=== PATIENT | female | born 1940 | race Caucasian/White ===

== ENCOUNTER 2023-11-23 04:16 | Inpatient (IN) ==
--- NOTE | 2023-11-23 04:44 | Emergency Department Note ---
Impression & Plan Dyspnea on exertion, Hypertension, Exercise hypoxemia, Paresthesia of arm, Acute UTI (urinary tract infection) ED Provider Note Name: ZAINAB CHAUDHARY Age: 83 Sex: Female Arrives Via: Walk-In Informant: Patient and patient's sons ED Provider: Harrison Espinal MD Chief Complaint: Hypertension Impression: As per impressions above Medical Decision Making: Pleasant 83-year-old female arrives for evaluation of hypertension. Patient notes that her blood pressure has been gradually increasing over the last several days when checking it. This morning she awoke and was having tingling in both of her arms. She denies any other neurodeficits and her NIH is 0 on arrival. Blood pressure is elevated in the 190s on arrival. She was given a small dose of labetalol and it started coming down. Patient did note some urinary frequency the last few days and UA is somewhat concerning for UTI the setting is reasonable to treat. She does not have any evidence of sepsis no fever or systemic symptoms. She does not have any abdominal pain or flank tenderness palpation. On ambulation to bathroom though patient became quite dyspneic. She states this gentleman increasing issue last few weeks. Her sons note that she has no energy and is doing much more sitting around the house due to the exertional shortness of breath she has been having. Checking her oxygen with ambulation it is dropping into the 80s. Reviewing her chart she does have some left ear though only mild to moderate. On exam she has a bit of a systolic murmur. I discussed the case further with them and offered hospitalist evaluation which they would like to proceed with. Hospitalist was consulted for further management evaluation. At this point patient is not significant hypoxic at rest has no tachycardia I think PE dissection is unlikely. She does not have evidence of CHF on examination or by chest x-ray. Triage/Nursing Notes reviewed by Me External Chart Review by me: Reviewed October 2023 echocardiogram results with preserved EF mild to moderate AAS. Differential:Reactive airway disease, pneumonia, pneumothorax, COPD, CHF, infections, cardiac ischemia, pulmonary embolism, musculoskeletal, gastrointestinal, as well as other pathologies. Vital Signs: reviewed and remarkable for HTN Interventions: Labetalol 5 mg IV, Rocephin 1 g IV Labs:ED labs Reviewed by me and remarkable for mildly elevated BNP Imaging:CT of the head without contrast as per my informal interpretation reveals no intracranial hemorrhage or mass effect. 1 view chest x-ray as per my interpretation mild emphysematous findings no infiltrate or effusion appreciated. EKG:As per my interpretation. Indication hypertension. The sinus rhythm with PACs, 88 bpm and a QTc of 438. No ischemia appreciated. No previous EKG for comparison. Cardiac/Tele Monitoring: Cardiac Monitoring: An Order was placed for continuous cardiac monitoring. The monitor shows a rate of 80 with a normal sinus rhythm. Consults:Dr Osiel Booth Hospitalist consulted who further evaluate and manage. Plan: Disposition:Hospitalization. Condition: Good History of Present Illness: 83-year-old female arrives for evaluation of hypertension. Patient with a history of hypertension and recently increasing blood pressures when checking them at home. Does note that oftentimes blood pressure will be normal in the mornings and then creep up in the evenings. States that this evening she awoke around 3 AM and was feeling paresthesias in bilateral arms. Go from elbows to shoulders. Denies any weakness, slurred speech, visual changes, headaches, neck pain or other concerning signs or symptoms. She denies any shortness of breath, chest pain, syncope, palpitations, fevers, chills or other. Denies any falls, trauma, injuries. Patient does not take any blood thinners. She notes she is on losartan 50 mg in the morning and at night. Follows with her mailmaster Dr. Mckeon for this as well as her PCP. Patient does admit that she has been a bit anxious recently. She is also been having some increased urinary frequency the last few days. Past Medical History: Hypertension, anxiety Home Medications: Losartan Allergies: No known drug allergies Vitals:Blood Pressure: 198/113, Pulse 88, RR 16, T 36.5C, O2 92% on RA Physical Exam: GENERAL: Patient is anxious appearing and in mild distress. RESPIRATORY: No dyspnea. Clear to auscultation and equal bilaterally. CARDIOVASCULAR: Regular rate and rhythm.Systolic murmur EXTREMITIES: Normal motion all extremities, no cyanosis, no edema. NEUROLOGIC: Alert and oriented. No focal neurologic deficits appreciated SKIN: No rash, no jaundice, no diaphoresis. PSYCH: Appropriate GCS: 15 ED Course: Times/Reassessments: significant sob and hypoxia with ambulation Harrison Espinal MD Past Med/Surg History Problem List (Updated 11/23/23 @ 06:29 by Harrison Espinal MD) Acute UTI (urinary tract infection) (Acute) Paresthesia of arm (Acute) Exercise hypoxemia (Acute) Hypertension (Acute) Dyspnea on exertion (Acute) Social History (System 07/31/18 @ 13:55 by Kari Rodgers) Smoking Status: Never smoker Preferred Language: Malay Feels Safe at Home: Yes Allergies Allergies Allergy/AdvReac Type Severity Reaction Status Date / Time Sulfa (Sulfonamide Allergy Vomiting Verified 11/23/23 06:04 Antibiotics) Home Meds Home Medications Medication Instructions Recorded Confirmed Aspir-81 81 mg PO DAILY 11/23/23 11/23/23 Calcium 600 + D(3) 1 tab PO DAILY 11/23/23 11/23/23 Vitamin C 1,000 mg PO DAILY 11/23/23 11/23/23 atenolol 25 mg tablet 25 mg PO DAILY 11/23/23 11/23/23 fluticasone propionate 2 spray DAILY 11/23/23 11/23/23 losartan 100 mg tablet 100 mg PO DAILY 11/23/23 11/23/23 sertraline 50 mg tablet 50 mg PO DAILY 11/23/23 11/23/23 zinc 50 mg PO DAILY 11/23/23 11/23/23 Results & Data (ED) Vital Signs Vital Signs - 24 hr 11/23/23 04:25 11/23/23 04:39 11/23/23 04:40 Temperature 36.5 C Temperature Source Temporal Artery Scan Pulse Rate 88 90 Pulse Rate [Apical] 87 Pulse Rhythm [Apical] Regular Pulse Strength [Apical] Normal Respiratory Rate 16 18 Respiratory Effort / Characteristics Non-Labored Spontaneous Respiratory Depth Normal Blood Pressure 198/113 H Blood Pressure [Left Arm] 215/128 H Blood Pressure Mean 141 Blood Pressure Mean [Left Arm] 157 Pulse Oximetry 92 96 Oxygen Delivery Method Room Air Sepsis Recent Fever Within 48 Hours No Sepsis New/Unexplained Change in Mental Status No Sepsis Action Taken by Nursing No Action Required 11/23/23 05:12 11/23/23 05:16 11/23/23 05:34 Temperature Temperature Source Pulse Rate 88 81 Pulse Rate [Apical] Pulse Rhythm [Apical] Pulse Strength [Apical] Respiratory Rate Respiratory Effort / Characteristics Respiratory Depth Blood Pressure 201/112 H 169/96 H Blood Pressure [Left Arm] Blood Pressure Mean Blood Pressure Mean [Left Arm] Pulse Oximetry 88 L Oxygen Delivery Method Room Air Sepsis Recent Fever Within 48 Hours Sepsis New/Unexplained Change in Mental Status Sepsis Action Taken by Nursing Laboratory Data 11/23/23 04:50 11/23/23 04:50 Lab Results 11/23/23 Range/Units 04:50 WBC 7.55 (4.8-10.8) K/ul RBC 4.93 (4.20-5.40) M/uL Hgb 14.9 (12.0-16.0) g/dl Hct 45.9 (37.0-47.0) % MCV 93.1 (80.0-100.0) fL MCH 30.2 (25.0-34.0) pg MCHC 32.5 (32.0-36.0) g/dL RDW Std Deviation 45.5 (36.4-46.3) fL RDW Coeff of Keisha 13.3 (11.5-14.5) % Plt Count 276 (130-400) K/uL MPV 9.2 L (9.4-12.4) fL Immature Gran % (Auto) 0.3 % Neut % (Auto) 74.2 % Lymph % (Auto) 13.8 % [place] % (Auto) 9.5 % Eos % (Auto) 1.7 % Baso % (Auto) 0.5 % Neut # (Auto) 5.60 (1.40-6.50) K/uL Lymph # (Auto) 1.04 L (1.20-3.40) K/uL [place] # (Auto) 0.72 H (0.11-0.59) K/uL Eos # (Auto) 0.13 (0.00-0.50) K/uL Baso # (Auto) 0.04 (0.00-0.20) K/uL Immature Gran # (Auto) 0.02 (0.01-0.20) K/uL Sodium 139 (136-145) mmol/L Potassium 3.6 (3.5-5.1) mmol/L Chloride 104 (98-107) mmol/L Carbon Dioxide 26 (21-32) mmol/L Anion Gap 9 (3-11) BUN 13 (6-23) mg/dl Creatinine 0.74 (0.6-1.2) mg/dl Est Cr Clr Drug Dosing Not Reportable Est GFR ( Amer) 86.2 ml/min Est GFR (Non-Af Amer) 74.4 ml/min BUN/Creatinine Ratio 17.6 (10-20) Glucose 114 H (70-99(Fasting)) mg/dl Calcium 9.9 (8.6-10.3) mg/dl Magnesium 2.0 (1.7-2.4) mg/dl Troponin I High Sens 8.7 (0-14) pg/ml B-Natriuretic Peptide 134 H (0-100) pg/ml Urine Color Yellow Urine Appearance Clear (Clear) Urine pH 8.0 H (4.5-7.5) Ur Specific [place] 1.008 (1.000-1.030) Urine Protein Negative (Negative) Urine Glucose (UA) Negative (Negative) Urine Ketones Negative (Negative) Urine Blood Negative (Negative) Urine Nitrite Negative (Negative) Urine Bilirubin Negative (Negative) Urine Urobilinogen Negative (Negative) Ur Leukocyte Esterase 2+ H (Negative) Urine WBC (Auto) 21-50 H (0-5) /hpf Urine RBC (Auto) 0-2 (0-2) /hpf U Hyaline Cast (Auto) 0-2 (0-2) /lpf U Epithel Cells (Auto) 0-2 (0-2) /hpf Urine Bacteria (Auto) None Seen (None Seen) Administered Medications Discontinued Medications Labetalol HCl (Labetalol Hcl Iv 5 Mg/Ml 20ml) 5 mg IV NOW STA Stop: 11/23/23 04:42 Last Admin: 11/23/23 05:16 Dose: 5 mg Documented By: HB Discharge Plan Visit Data Chief Complaint: Hypertension Stated Complaint: ARMS TINGLING,HIGH BP ED Provider: Harrison Espinal Discharge Problem: Dyspnea on exertion, Hypertension, Exercise hypoxemia, Paresthesia of arm, Acute UTI (urinary tract infection) Forms Stand Alone Forms: My [facility]ll[facility] Prescriptions Prescriptions: No Action Aspir-81 81 mg PO DAILY atenolol 25 mg tablet 25 mg PO DAILY losartan 100 mg tablet 100 mg PO DAILY sertraline 50 mg tablet 50 mg PO DAILY Calcium 600 + D(3) 1 tab PO DAILY Vitamin C 1,000 mg PO DAILY fluticasone propionate 2 spray DAILY Rx Instructions: each nostril zinc 50 mg PO DAILY Referrals Referrals: Stevie Mcclain D.O. [Primary Care Provider] - Discharge Problem: Hypertension Qualifiers: Hypertension type: primary hypertension Qualified Code(s): I10 - Essential (primary) hypertension
[2023-11-23 05:12] LABS: Appearance Urine Clear (Clear); Bacteria Urine Automated None Seen (None Seen); Bilirubin Urine Negative (Negative); Blood Urine Negative (Negative); Cast Urine Automated 0-2 /lpf (0-2); Color Urine Yellow; Epithelial Cell Urine Auto 0-2 /hpf (0-2); Glucose Urine UA Negative (Negative); Ketones Urine Negative (Negative); Leukocyte Esterase Urine 2+ (Negative); Nitrite Urine Negative (Negative); Protein Urine Negative (Negative); RBC Urine Automated 0-2 /hpf (0-2); Specific Gravity Urine 1.008 (1.000-1.030); Urobilinogen Urine Negative (Negative); WBC Urine Automated 21-50 /hpf (0-5)
[2023-11-23] MEDS: LABETALOL HCL IV 5 MG/ML 20ML IV STA ×2 (05:16→06:36)
[2023-11-23 05:17] LABS: Basophils # (auto) 0.04 K/uL (0.00-0.20); Basophils % (auto) 0.5 %; Eosinophils # (auto) 0.13 K/uL (0.00-0.50); Eosinophils % (auto) 1.7 %; Hematocrit (blood only) 45.9 % (37.0-47.0); Hemoglobin 14.9 g/dl (12.0-16.0); Immature Granulocytes # (auto) 0.02 K/uL (0.01-0.20); Immature Granulocytes % (auto) 0.3 %; Lymphocytes # (auto) 1.04 K/uL (1.20-3.40); Lymphocytes % (auto) 13.8 %; Mean Corpuscular Hemoglobin 30.2 pg (25.0-34.0); Mean Corpuscular Hgb Conc 32.5 g/dL (32.0-36.0); Mean Corpuscular Volume 93.1 fL (80.0-100.0); Mean Platelet Volume 9.2 fL (9.4-12.4); Monocytes # (auto) 0.72 K/uL (0.11-0.59); Monocytes % (auto) 9.5 %; Neutrophils % (auto) 74.2 %; Platelet Count 276 K/uL (130-400); RDW Coefficient of Variation 13.3 % (11.5-14.5); RDW Standard Deviation 45.5 fL (36.4-46.3); Red Blood Count 4.93 M/uL (4.20-5.40); White Blood Count 7.55 K/ul (4.8-10.8)
[2023-11-23 05:27] LABS: Anion Gap 9 (3-11); BUN Creatinine Ratio 17.6 (10-20); Blood Urea Nitrogen 13 mg/dl (6-23); Calcium 9.9 mg/dl (8.6-10.3); Carbon Dioxide 26 mmol/L (21-32); Chloride 104 mmol/L (98-107); Est GFR (African American) 86.2 ml/min; Est GFR (Non-African American) 74.4 ml/min; Glucose 114 mg/dl (70-99(Fasting)); Potassium 3.6 mmol/L (3.5-5.1); Sodium 139 mmol/L (136-145)
[2023-11-23 05:34] LABS: Troponin I High Sensitivity 8.7 pg/ml (0-14)
[2023-11-23] MEDS: cefTRIAXone SODIUM 1,000 MG/50 ML BAG IV STA (06:21)
--- NOTE | 2023-11-23 06:44 | History & Physical Report ---
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 It may contain grammatical or spelling errors. Kindly contact undersigned for clarification of any documentation item in question. History of Present Illness Chief Complaint: High blood pressure, SOB, tingling sensation over the arms Primary Care Provider: Stevie Mccalin History obtained from patient, family, and records. Medical history significant for hypertension, valvular heart disease (mild to moderate , mild AR/MR, TTE 2023), R breast cancer status post surgery and letrozole Rx, colon cancer status post surgery, anxiety. Patient has had uncontrolled blood pressure the last 2 months. SBP 1 20-1 90s as per patient. Compliant with home meds. Denies OTC NSAID intake. Denies unusual stress at home. No sleep apnea concerns as per family. Denies headache, chest pain, abdominal pain complaints. Some SOB usually on exertion. No fluid retention. PCP recently started sertraline for anxiety which was thought to be adding to patient's blood pressure issues. Outpatient 2D echo requested and done last month at [facility]. Outpatient [facility] cardiology referral scheduled February 2024. Patient recently completed antibiotic Rx for sinus infection. Patient woke up this morning with tingling discomfort both arms. No headache, no chest pain. Worsening SOB. Increased urinary frequency without abdominal pain complaints. No fever, no chills. Highest SBP of 210 documented at the ER. O2 sats of 80s documented at the ER. IV labetalol administered at the ER. 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 Allergies Allergy/AdvReac Type Severity Reaction Status Date / Time Sulfa (Sulfonamide Allergy Vomiting Verified 11/23/23 06:04 Antibiotics) Home Medications Medication Instructions Recorded Confirmed Type Aspir-81 81 mg PO DAILY 11/23/23 11/23/23 History Calcium 600 + D(3) 1 tab PO DAILY 11/23/23 11/23/23 History Vitamin C 1,000 mg PO DAILY 11/23/23 11/23/23 History atenolol 25 mg tablet 25 mg PO DAILY 11/23/23 11/23/23 History fluticasone propionate 2 spray DAILY 11/23/23 11/23/23 History losartan 100 mg tablet 50 mg PO BID 11/23/23 11/23/23 History sertraline 50 mg tablet 50 mg PO DAILY 11/23/23 11/23/23 History zinc 50 mg PO DAILY 11/23/23 11/23/23 History Past Med/Surg History Problem List (Updated 11/23/23 @ 08:11 by Santo Cartagena MD) Acute hypoxemic respiratory failure Acute UTI (urinary tract infection) (Acute) Paresthesia of arm (Acute) Exercise hypoxemia (Acute) Hypertension (Acute) Dyspnea on exertion (Acute) Social History (System 07/31/18 @ 13:55 by Kari Rodgers) Smoking Status: Never smoker Preferred Language: Com[place]an Feels Safe at Home: Yes Review of Systems Review of Systems: As per HPI, all other systems reviewed and negative Physical Exam Physical Exam: GENERAL: Comfortable, pleasant, slightly anxious, no respiratory distress SKIN: Normal color, warm HEENT: [place] palpebral conjunctivae, no ptosis, moist buccal mucosa NECK : Supple, no tenderness CHEST : CTA, no tenderness HEART : RRR, systolic murmur ABDOMEN: Some distention, nontender EXTREMITIES : No LE swelling, prominent LE varicose veins, no LE tenderness NEUROLOGIC : Coherent, no facial asymmetry, no other gross focality Results & Data Results & Data Vital Signs (Past 12 Hours) Vital Signs Temp Pulse Pulse Resp BP BP Pulse Ox 11/23/23 05:34 81 169/96 H 11/23/23 05:16 88 201/112 H 11/23/23 05:12 88 L 11/23/23 04:40 87 18 215/128 H 96 11/23/23 04:39 90 11/23/23 04:25 36.5 C 88 16 198/113 H 92 O2 Del Method 11/23/23 05:34 11/23/23 05:16 11/23/23 05:12 Room Air 11/23/23 04:40 Room Air 11/23/23 04:39 11/23/23 04:25 Laboratory Results Laboratory Results WBC 7.55 K/ul (4.8-10.8) 11/23/23 04:50 RBC 4.93 M/uL (4.20-5.40) 11/23/23 04:50 Hgb 14.9 g/dl (12.0-16.0) 11/23/23 04:50 Hct 45.9 % (37.0-47.0) 11/23/23 04:50 MCV 93.1 fL (80.0-100.0) 11/23/23 04:50 MCH 30.2 pg (25.0-34.0) 11/23/23 04:50 MCHC 32.5 g/dL (32.0-36.0) 11/23/23 04:50 RDW Std Deviation 45.5 fL (36.4-46.3) 11/23/23 04:50 RDW Coeff of Keisha 13.3 % (11.5-14.5) 11/23/23 04:50 Plt Count 276 K/uL (130-400) 11/23/23 04:50 MPV 9.2 fL (9.4-12.4) L 11/23/23 04:50 Immature Gran % (Auto) 0.3 % 11/23/23 04:50 Neut % (Auto) 74.2 % 11/23/23 04:50 Lymph % (Auto) 13.8 % 11/23/23 04:50 [place] % (Auto) 9.5 % 11/23/23 04:50 Eos % (Auto) 1.7 % 11/23/23 04:50 Baso % (Auto) 0.5 % 11/23/23 04:50 Neut # (Auto) 5.60 K/uL (1.40-6.50) 11/23/23 04:50 Lymph # (Auto) 1.04 K/uL (1.20-3.40) L 11/23/23 04:50 [place] # (Auto) 0.72 K/uL (0.11-0.59) H 11/23/23 04:50 Eos # (Auto) 0.13 K/uL (0.00-0.50) 11/23/23 04:50 Baso # (Auto) 0.04 K/uL (0.00-0.20) 11/23/23 04:50 Immature Gran # (Auto) 0.02 K/uL (0.01-0.20) 11/23/23 04:50 Sodium 139 mmol/L (136-145) 11/23/23 04:50 Potassium 3.6 mmol/L (3.5-5.1) 11/23/23 04:50 Chloride 104 mmol/L (98-107) 11/23/23 04:50 Carbon Dioxide 26 mmol/L (21-32) 11/23/23 04:50 Anion Gap 9 (3-11) 11/23/23 04:50 BUN 13 mg/dl (6-23) 11/23/23 04:50 Creatinine 0.74 mg/dl (0.6-1.2) 11/23/23 04:50 Est Cr Clr Drug Dosing Not Reportable 11/23/23 04:50 Est GFR ( Amer) 86.2 ml/min 11/23/23 04:50 Est GFR (Non-Af Amer) 74.4 ml/min 11/23/23 04:50 BUN/Creatinine Ratio 17.6 (10-20) 11/23/23 04:50 Glucose 114 mg/dl (70-99(Fasting)) H 11/23/23 04:50 Calcium 9.9 mg/dl (8.6-10.3) 11/23/23 04:50 Magnesium 2.0 mg/dl (1.7-2.4) 11/23/23 04:50 Troponin I High Sens 8.7 pg/ml (0-14) 11/23/23 04:50 B-Natriuretic Peptide 134 pg/ml (0-100) H 11/23/23 04:50 Urine Color Yellow 11/23/23 04:50 Urine Appearance Clear (Clear) 11/23/23 04:50 Urine pH 8.0 (4.5-7.5) H 11/23/23 04:50 Ur Specific [place] 1.008 (1.000-1.030) 11/23/23 04:50 Urine Protein Negative (Negative) 11/23/23 04:50 Urine Glucose (UA) Negative (Negative) 11/23/23 04:50 Urine Ketones Negative (Negative) 11/23/23 04:50 Urine Blood Negative (Negative) 11/23/23 04:50 Urine Nitrite Negative (Negative) 11/23/23 04:50 Urine Bilirubin Negative (Negative) 11/23/23 04:50 Urine Urobilinogen Negative (Negative) 11/23/23 04:50 Ur Leukocyte Esterase 2+ (Negative) H 11/23/23 04:50 Urine WBC (Auto) 21-50 /hpf (0-5) H 11/23/23 04:50 Urine RBC (Auto) 0-2 /hpf (0-2) 11/23/23 04:50 U Hyaline Cast (Auto) 0-2 /lpf (0-2) 11/23/23 04:50 U Epithel Cells (Auto) 0-2 /hpf (0-2) 11/23/23 04:50 Urine Bacteria (Auto) None Seen (None Seen) 11/23/23 04:50 Diagnostic Findings Chest x-ray atelectasis, no congestion EKG as per my interpretation : Rate 90, LAD, LAFB, LVH, T wave abnormalities anteroseptal leads
[2023-11-23] MEDS ORDERED: hydrOXYzine HCl 10 MG TAB PO PRN (06:50)
[2023-11-23] MEDS ORDERED: traMADol HCL 50 MG TABLET PO PRN (06:51)
[2023-11-23] MEDS ORDERED: ACETAMINOPHEN 325 MG TAB PO PRN (06:51)
[2023-11-23] MEDS ORDERED: PROMETHAZINE 6.25 MG/50.25 ML BAG IV PRN (06:51)
[2023-11-23] MEDS: OPTIRAY 320 125ml IV ONE (06:58)
[2023-11-23 07:05] LABS: Partial Thromboplastin Time 27 Seconds (21-31)
--- NOTE | 2023-11-23 07:06 | CT Scan Report ---
Exam(s): CT HEAD Without Contrast EXAM: CT Head Without Intravenous Contrast CLINICAL HISTORY: Reason for exam: HTN, Paresthesias. TECHNIQUE: Axial computed tomography images of the head/brain without intravenous contrast. Automated exposure control was utilized for the study. A dose lowering technique was utilized adhering to the principles of ALARA. COMPARISON: No relevant prior studies available. FINDINGS: Brain: Unremarkable. No hemorrhage. Mild nonspecific white matter changes. No edema. Ventricles: Mild ventriculomegaly. Bones/joints: Unremarkable. No acute fracture. Soft tissues: Unremarkable. Sinuses: Unremarkable as visualized. No acute sinusitis. Mastoid air cells: Unremarkable as visualized. No mastoid effusion. IMPRESSION: No evidence of acute intracranial pathology. Electronically signed by: Ida Jauregui MD 11/23/23 07:05 AM
[2023-11-23 07:12] LABS: Base Excess VBG 1.5 mEq/L; HCO3 VBG 27 mmol/L; Oxygen Saturation VBG < 60.0 %; PCO2 VBG 46 mmHg (38-50); PO2 VBG 28 mmHg; pH VBG 7.38 (7.36-7.41)
[2023-11-23] MEDS: LOSARTAN POTASSIUM 50 MG TAB PO STA ×2 (07:15→07:22)
[2023-11-23] MEDS: hydrOXYzine HCl 10 MG TAB PO STA (07:15)
[2023-11-23 07:32] LABS: Influenza A virus by PCR Negative (Neg); Influenza B virus by PCR Negative (Neg); RSV by PCR Negative (Neg); SARS CoV2 RNA(COVID-19) Ceph NEGATIVE (Negative)
[2023-11-23 07:39] LABS: Troponin I High Sensitivity 11.2 pg/ml (0-14)
[2023-11-23 08:01] LABS: Estimated Average Glucose 128 mg/dl; Hemoglobin A1C 6.1 % (4.5-5.6)
--- NOTE | 2023-11-23 08:28 | XRay Report ---
SINGLE VIEW CHEST CLINICAL HISTORY: Dyspnea FINDINGS: 2 AP, portable, upright chest radiographs are obtained. No prior studies are available for comparison at the time of dictation. The cardiomediastinal silhouette is unremarkable noting atherosc lerotic calcification of the thoracic aorta. Nonspecific interstitial thickening is likely chronic. T here is bibasilar scarring/atelectasis. The lungs and pleural spaces are otherwise clear. No pneumoth orax is seen. The skeletal structures are osteopenic. The bony thorax is grossly intact. Surgical cli ps are noted in the right axilla. IMPRESSION: No acute cardiopulmonary abnormality. ACT 112: Negative or not required by law. Electronically signed by: Nghia Gaming M.D. 11/23/2023 8:26 AM
[2023-11-23 08:37] LABS: Thyroid Stimulating Hormone 1.86 uIu/ml (0.300-4.500)
--- NOTE | 2023-11-23 08:54 | Electrocardiogram Report ---
Test Reason : Blood Pressure : */* mmHG Vent. Rate : 88 BPM Atrial Rate : 88 BPM P-R Int : 168 ms QRS Dur : 70 ms QT Int : 362 ms P-R-T Axes : 82 -39 58 degrees QTcB Int : 438 ms Sinus rhythm with Premature atrial complexes Left axis deviation Left ventricular hypertrophy with repolarization abnormality Abnormal ECG No previous ECGs available Confirmed by Matteo Manzo ([id number]) on 11/23/2023 8:54:35 AM Referred By: REFERRED SELF Confirmed By: Matteo Manzo
[2023-11-23] MEDS: ENOXAPARIN INJ 40 MG/0.4 ML SYR SQ SCH (09:31)
[2023-11-23] MEDS: SERTRALINE HCL 50 MG TABLET PO SCH (09:31)
[2023-11-23] MEDS: ATENOLOL 50 MG TABLET PO SCH (09:31)
--- NOTE | 2023-11-23 09:31 | CT Scan Report ---
Exam(s): CTA CHEST IV Amt: 119ml optiray 320 EXAM: CT Angiography Chest With Intravenous Contrast CLINICAL HISTORY: Reason for exam: sob. TECHNIQUE: Axial computed tomographic angiography images of the chest with intravenous contrast. Automated exposure control was utilized for the study. A dose lowering technique was utilized adhering to the principles of ALARA. MIP reconstructed images were created and reviewed. COMPARISON: No relevant prior studies available. FINDINGS: Pulmonary arteries: No pulmonary embolism detected. Aorta: Atherosclerotic disease. No thoracic aortic aneurysm. Lungs: Dependent scarring at the lung bases. Scattered pulmonary cysts noted. No mass. No consolidation. Pleural space: Unremarkable. No significant effusion. No pneumothorax. Heart: Coronary artery calcifications. No cardiomegaly. No significant pericardial effusion. No evidence of RV dysfunction. Bones/joints: Degenerative changes in the spine. No acute fracture. No dislocation. Soft tissues: Right fat-containing Bochdalek hernia. Lymph nodes: Unremarkable. No enlarged lymph nodes. Liver: Calcified granuloma in the liver. Other findings: Mild celiac axis ostial stenosis. IMPRESSION: No pulmonary embolism detected. Electronically signed by: Jacky Villalpando MD 11/23/23 09:30 AM
--- NOTE | 2023-11-23 10:39 | Cardiology Consultation ---
Date of Consultation November 23, 2023 Assessment & Plan (1) Hypertension: (2) Dyspnea on exertion: (3) Sinus tachycardia: (4) Aortic stenosis: Plan RANDALL Tachycardia? Complicated UTI HTN Mild to moderate aortic stenosis Anxiety Hx breast cancer -s/p b/l mastectomy Hx colon cancer 1. HTN -BP remains elevated despite changes dose times of losartan -Start amlodipine 5mg daily -Continue losartan 50mg BID 2. RANDALL -Echocardiogram with mild to moderate aortic stenosis 10/29/2023 -Patient appears euvolemic on examination -Nuclear stress test scheduled for 11/28/2023, with cardiology follow-up in February. Will facilitate sooner appointment. 3. Tachycardia? -TSH/electrolytes normal -Heart rate well controlled -Continue atenolol 50mg daily Case discussed with Dr. Brasher. I spent a total of 38 minutes on the date of service in preparation, delivery, and documentation of the care provided to this patient, excluding any time spent in the performance of separately billed services. Carlota Castro PA-C Department of Cardiology, [facility] This chart was completed in part utilizing Speech Voice Recognition Software. Grammatical errors, random word insertions, pronoun errors, and incomplete sentences are an occasional consequence of this system due to software limitations, ambient noise, and hardware issues. Any formal questions or concerns about the content, text, or information contained within the body of this dictation should be directly addressed to the provider for clarification. Supervising Physician Co-Signing Physician Notes I have reviewed the advance practitioner's documentation, and I agree with, and take responsibility for the plan of care. I have personally performed a history and physical examination on the patient. I spent a total of 45 minutes on the date of service in preparation, delivery, and documentation of the care provided to this patient, excluding any time spent in the performance of separately billed service 83-year-old female with a past medical history of HTN, mild to moderate , history of breast cancer presented to emergency room yesterday with symptoms of dyspnea on exertion. Patient states that she has been having on and off e pisodes of dyspnea for the past few months in the past few weeks they have been worsened. Her PCP had ordered an echocardiogram which showed LVEF of 55-60 to 56%, normal RV size and systolic function, mild AI, mild to moderate and mild MR And mild TR. she otherwise denies chest pain, dyspnea at rest, orthopnea, PND, lower extreme edema, palpitations, or syncope. She has been noticing her blood pressure is more hypertensive at home. Her PCP had increased her losartan to 100 mg p.o. daily but despite this she noticed elevated blood pressure readings of up to 200 systolic Which has brought her to the emergency room. Her troponins were negative x 2. Her EKG showed sinus rhythm with premature atrial contractions with LVH but no acute ischemic changes. QTc was noted to be [address] PE study was done which showed no pulmonary embolism, no pleural effusion or pericardial effusion. She did have some coronary artery calcifications. Patient still concerned about her dyspnea with exertion. Her PCP had ordered a Lexiscan nuclear stress test that was scheduled for later this week but patient would prefer to stay in the hospital and have this done on Saturday. Her blood pressure is much better controlled today. Will plan on a Lexiscan nuclear stress test on Saturday morning. History of Present Illness Reason for Consultation: HTN Requesting Physician: Dr. Sanchez Attending Physician: Lisa Paniagua MD History of Present Illness Barbara Wilks is an 83 year old female with PMHx HTN, mild to moderate aortic stenosis, hx breast cancer s/p b/l mastectomy/letrozole and colon cancer who presented to [facility] with RANDALL. Further work-up revealed transient hypoxemia, HTN, complicated UTI and hyperglycemia. RANDALL is has caused a decline in patients functional capacity. Shortness of breath most notable upon climbing a flight of stairs. Has to stop and rest for 1 minute before proceeding. Prior to the last couple months she has been in usual state of health. Feels her "tachycardia" has been well controlled with atenolol for many years until recently. Now she often feels her heart racing. Denies chest pain, lightheadedness, syncope, headache, stroke-like symptoms. She has been following with her PCP in regards to high blood pressure x2 months. She has tried taking losartan 100mg qAM and 50mg BID without improvement. Has an upcoming appointment scheduled with Dr. Mckeon in regards to BP, RANDALL and tachycardia/palpitations. Cardiac work-up has been started with echocardiogram which revealed normal LVEF and mild to moderate aortic stenosis. She has nuclear stress test scheduled on 11/27. Family Hx: Aunt CAD s/p CABG in 70's. Mother and father at young ages from cancer. Brother with pancreatic cancer. Social Hx: never smoker, no alcohol or drug use. Allergies Allergy/AdvReac Type Severity Reaction Status Date / Time Sulfa (Sulfonamide Allergy Vomiting Verified 11/23/23 06:04 Antibiotics) Home Medications Medication Instructions Recorded Confirmed Type Aspir-81 81 mg PO DAILY 11/23/23 11/23/23 History Calcium 600 + D(3) 1 tab PO DAILY 11/23/23 11/23/23 History Vitamin C 1,000 mg PO DAILY 11/23/23 11/23/23 History atenolol 25 mg tablet 25 mg PO DAILY 11/23/23 11/23/23 History fluticasone propionate 2 spray DAILY 11/23/23 11/23/23 History losartan 100 mg tablet 50 mg PO BID 11/23/23 11/23/23 History sertraline 50 mg tablet 50 mg PO DAILY 11/23/23 11/23/23 History zinc 50 mg PO DAILY 11/23/23 11/23/23 History Patient History Social History (System 07/31/18 @ 13:55 by Kari Rodgers) Smoking Status: Never smoker Hx Alcohol Use: No Hx Substance Use: No Preferred Language: Mauritian Communication Ability: Effective Glue Specialty Supervisor Required: No Beliefs That Will Affect Care: None Current Living Situation: Significant Other Other Information That Helps Us Care for You: No Feels Safe at Home: Yes Safety Concerns: Feels Safe At This Time Assistive Devices: Denture - Lower and Glasses Review of Systems Review of Systems: All systems reviewed & are unremarkable except as noted in HPI & below Physical Exam Constitutional: well developed and well nourished; no acute distress Eyes: PERRL, conjunctivae normal, anicteric sclerae Respiratory: normal respiratory effort, lungs clear to auscultation Auscultation: no crackles, no rales and no wheezes Cardiovascular: Rate/Rhythm: regular rate and regular rhythm Heart Sounds: normal S1, normal S2 and + murmur Vessels: no JVD Extremities: no edema Chest (Breasts): Additional Comments: b/l mastectomy Skin: no rashes, warm and dry Neurologic: PERRL, EOMI, accommodation nl, no face palsy, no dysarthria Psychiatric: A+Ox3, euthymic affect Results & Data Vital Signs (Past 12 Hours) Vital Signs Temp Pulse Pulse Resp BP BP Pulse Ox 11/23/23 08:39 11/23/23 08:32 11/23/23 08:14 36.9 C 86 16 174/96 H 94 11/23/23 07:19 87 18 188/102 H 95 11/23/23 05:34 81 169/96 H 11/23/23 05:16 88 201/112 H 11/23/23 05:12 88 L 11/23/23 04:40 87 18 215/128 H 96 11/23/23 04:39 90 11/23/23 04:25 36.5 C 88 16 198/113 H 92 O2 Del Method 11/23/23 08:39 Room Air 11/23/23 08:32 Room Air 11/23/23 08:14 Room Air 11/23/23 07:19 Room Air 11/23/23 05:34 11/23/23 05:16 11/23/23 05:12 Room Air 11/23/23 04:40 Room Air 11/23/23 04:39 11/23/23 04:25 Laboratory Results Cardiac Enzymes 11/23/23 11/23/23 Range/Units 04:50 07:07 Troponin I High Sens 8.7 11.2 (0-14) pg/ml B-Natriuretic Peptide 134 H (0-100) pg/ml Coagulation 11/23/23 Range/Units 04:50 APTT 27 (21-31) Seconds B-Natriuretic Peptide 134 H (0-100) pg/ml CBC 11/23/23 Range/Units 04:50 WBC 7.55 (4.8-10.8) K/ul RBC 4.93 (4.20-5.40) M/uL Hgb 14.9 (12.0-16.0) g/dl Hct 45.9 (37.0-47.0) % Plt Count 276 (130-400) K/uL Neut # (Auto) 5.60 (1.40-6.50) K/uL Lymph # (Auto) 1.04 L (1.20-3.40) K/uL [place] # (Auto) 0.72 H (0.11-0.59) K/uL Eos # (Auto) 0.13 (0.00-0.50) K/uL Baso # (Auto) 0.04 (0.00-0.20) K/uL Comprehensive Metabolic Panel 11/23/23 Range/Units 04:50 Sodium 139 (136-145) mmol/L Potassium 3.6 (3.5-5.1) mmol/L Chloride 104 (98-107) mmol/L Carbon Dioxide 26 (21-32) mmol/L BUN 13 (6-23) mg/dl Creatinine 0.74 (0.6-1.2) mg/dl Glucose 114 H (70-99(Fasting)) mg/dl Calcium 9.9 (8.6-10.3) mg/dl Intake and Output 11/22/23 11/23/23 11/23/23 22:59 06:59 14:59 Intake Total 50 / 50 Balance 50 / 50 Intake: IV 50 / 50 cefTRIAXone SODIUM 1,000 mg In 50 / 50 50 ml @ 100 mls/hr IV NOW STA Rx#:[id number] Other: Weight 63 kg 61.9 kg Weight Measurement Method [facility] Patient Weight 11/24/23 06:59 Weight 61.9 kg Diagnostic Findings ECHO 10/29/2023 No prior study for comparison LVEF 55-60% LV systolic function normal LV wall motion normal Mild concentric LVH RV normal in size and function Mild aortic regurgitation RV systolic pressure elevated 30-40mmHg EKG 11/23/2023 SR PACs 88bpm LAD LVH (1) Hypertension Hypertension type: primary hypertension Qualified Code(s): I10 - Essential (primary) hypertension
[2023-11-23] MEDS: amLODIPine BESYLATE 5 MG TAB PO SCH (12:48)
--- NOTE | 2023-11-23 14:35 | Communication Note ---
Date of Service: November 23, 2023 Evaluated patient at bedside Chest pain free, no active symptoms--reports feeling subjectively better EXAM with holosystolic murmur VS SBP in 120s #RANDALL #Hypertensive Urgency #Moderate Aortic Stenosis 10/2023 Resumed home losartan Cardiology consulted -Started amlodipine Plan for Lexiscan saturday #Palpitations Continue atenolol rest of plan per HP
[2023-11-23] MEDS: LOSARTAN POTASSIUM 50 MG TAB PO SCH (20:18)
[2023-11-24] MEDS: cefTRIAXone SODIUM 2,000 MG/50 ML BAG IV SCH (05:52)
[2023-11-24 06:21] LABS: Basophils # (auto) 0.05 K/uL (0.00-0.20); Basophils % (auto) 1.1 %; Eosinophils # (auto) 0.15 K/uL (0.00-0.50); Eosinophils % (auto) 3.2 %; Hematocrit (blood only) 42.6 % (37.0-47.0); Immature Granulocytes # (auto) 0.01 K/uL (0.01-0.20); Immature Granulocytes % (auto) 0.2 %; Lymphocytes # (auto) 1.46 K/uL (1.20-3.40); Lymphocytes % (auto) 30.8 %; Mean Corpuscular Hemoglobin 30.2 pg (25.0-34.0); Mean Corpuscular Hgb Conc 32.9 g/dL (32.0-36.0); Mean Platelet Volume 9.5 fL (9.4-12.4); Monocytes % (auto) 12.7 %; Neutrophils # (auto) 2.47 K/uL (1.40-6.50); Platelet Count 243 K/uL (130-400); RDW Coefficient of Variation 13.6 % (11.5-14.5); RDW Standard Deviation 46.3 fL (36.4-46.3); Red Blood Count 4.63 M/uL (4.20-5.40); White Blood Count 4.74 K/ul (4.8-10.8)
[2023-11-24 06:30] LABS: BUN Creatinine Ratio 24.7 (10-20); Calcium 9.6 mg/dl (8.6-10.3); Est GFR (African American) 72.9 ml/min; Est GFR (Non-African American) 62.9 ml/min; Potassium 4.5 mmol/L (3.5-5.1)
--- NOTE | 2023-11-24 09:40 | Cardiology Progress Note ---
Date of Service November 24, 2023 Assessment & Plan (1) Dyspnea on exertion: (2) Hypertension: Plan RANDALL coronary artery calcifications per chest CT complicated UTI HTN mild to moderate aortic stenosis Hx breast cancer and colon cancer -Patient remains chest pain free -Patient appears euvolemic on examination -Blood pressure stable, discontinue amlodipine -Will plan for lexiscan nuclear stress testing in the morning Case discussed with Dr. Brasher. I spent a total of 28 minutes on the date of service in preparation, delivery, and documentation of the care provided to this patient, excluding any time spent in the performance of separately billed services. Carlota Castro PA-C Department of Cardiology, [facility] This chart was completed in part utilizing Speech Voice Recognition Software. Grammatical errors, random word insertions, pronoun errors, and incomplete sentences are an occasional consequence of this system due to software limitations, ambient noise, and hardware issues. Any formal questions or concerns about the content, text, or information contained within the body of this dictation should be directly addressed to the provider for clarification. Admission and Anticipated Discharge Date Admission Date: November 23, 2023 Supervising Physician Co-Signing Physician Notes I have reviewed the advance practitioner's documentation, and I agree with, and take responsibility for the plan of care. I have personally performed a history and physical examination on the patient. I spent a total of 30 minutes on the date of service in preparation, delivery, and documentation of the care provided to this patient, excluding any time spent in the performance of separately billed service Keep n.p.o. after midnight for Lexiscan nuclear stress test in the morning. Subjective Patient reports slight shortness of breath while walking the halls earlier in the day Denies chest pain, palpitations Feels slightly lightheaded, tells me her BP was low prior to receiving 2 BP pills this AM Review of Systems Review of Systems: All systems reviewed & are unremarkable except as noted in HPI & below Respiratory: + dyspnea on exertion Physical Exam Constitutional: well developed and well nourished; no acute distress Eyes: PERRL, conjunctivae normal, anicteric sclerae Respiratory: normal respiratory effort, lungs clear to auscultation Auscultation: no crackles, no rales and no wheezes Cardiovascular: Rate/Rhythm: regular rate and regular rhythm Heart Sounds: normal S1, normal S2 and + murmur Vessels: no JVD Extremities: no edema Chest (Breasts): Additional Comments: b/l mastectomy Skin: no rashes, warm and dry Neurologic: PERRL, EOMI, accommodation nl, no face palsy, no dysarthria Psychiatric: A+Ox3, euthymic affect Results & Data Vital Signs (Past 12 Hours) Vital Signs Temp Pulse Pulse Resp BP Pulse Ox O2 Del Method 11/24/23 08:14 36.5 C 66 17 117/68 93 Room Air 11/24/23 07:09 59 L 11/24/23 03:51 36.8 C 71 18 126/72 93 Room Air 11/23/23 23:00 36.9 C 59 L 18 120/74 94 Room Air 11/23/23 22:45 60 Laboratory Results CBC 11/24/23 Range/Units 05:45 WBC 4.74 L (4.8-10.8) K/ul RBC 4.63 (4.20-5.40) M/uL Hgb 14.0 (12.0-16.0) g/dl Hct 42.6 (37.0-47.0) % Plt Count 243 (130-400) K/uL Neut # (Auto) 2.47 (1.40-6.50) K/uL Lymph # (Auto) 1.46 (1.20-3.40) K/uL [place] # (Auto) 0.60 H (0.11-0.59) K/uL Eos # (Auto) 0.15 (0.00-0.50) K/uL Baso # (Auto) 0.05 (0.00-0.20) K/uL Comprehensive Metabolic Panel 11/24/23 Range/Units 05:45 Sodium 139 (136-145) mmol/L Potassium 4.5 D (3.5-5.1) mmol/L Chloride 106 (98-107) mmol/L Carbon Dioxide 27 (21-32) mmol/L BUN 21 (6-23) mg/dl Creatinine 0.85 (0.6-1.2) mg/dl Glucose 97 (70-99(Fasting)) mg/dl Calcium 9.6 (8.6-10.3) mg/dl Intake and Output 11/23/23 11/24/23 11/24/23 22:59 06:59 14:59 Intake Total 50 / 370 Balance 50 / 370 Intake: IV 50 / 50 cefTRIAXone SODIUM 2,000 mg In 50 / 50 50 ml @ 100 mls/hr IV Q24H [facility] Rx#:[id number] Other: # Unmeasured Voids 1 Weight 63.2 kg (2) Hypertension Hypertension type: primary hypertension Qualified Code(s): I10 - Essential (primary) hypertension
--- NOTE | 2023-11-24 10:36 | Hospitalist Progress Note ---
Date of Service November 24, 2023 Assessment & Plan (1) Acute hypoxemic respiratory failure: Plan: Ms Wilks is an 83 year old woman with medical history significant for hypertension, valvular heart disease (mild to moderate , mild AR/MR, TTE 2023), R breast cancer status post surgery and letrozole Rx, colon cancer status post surgery, anxiety who is admitted for hypertensive urgency and evaluation of RANDALL. Patient's blood pressure has improved with resumption of home regimen. UA suggestive of infection as well, therefore continued on CTX. #Hypertensive urgency possibly exacerbated with underlying anxiety, resumed home regimen with amlodipine added initially Cardiology following -Continue Losartan 50mg BID -Continue Atenolol 40mg -discontinue amlodipine started on admission #RANDALL #Moderate Aortic Stenosis 10/2023 CT PE negative ECHO 10/2023 with LVH, EF 55-60% PHTN 30-40mmHg Plan for Lexiscan in am #Palpitations Continue atenolol 50mg daily #Acute uncomplicated cystitis No signs of complicated UTI: leukocytosis, pyelo/renal dysfunction, sepsis Will continue CTX UA with GNB, will follow final cultures #Anxiety Continue sertraline Anxiolytic as needed #Prediabetes A1C 6.1% Encouraged lifestyle modifications #R breast cancer status post surgery/letrozole Rx #colon cancer status post surgery stable DVT prophylaxis per Lovenox subcu Full code Admission and Anticipated Discharge Date Admission Date: November 23, 2023 Subjective NAEO Reports subjective improvement Denies any chest pain or SOB Physical Exam Constitutional: WD/WN, vitals as above Respiratory: normal respiratory effort, lungs clear to auscultation Cardiovascular: JEANETTE++ no edema Musculoskeletal: no cyanosis or clubbing, extremities motor strength 5/5 Results & Data Results & Data Vital Signs (Past 12 Hours) Vital Signs Temp Pulse Pulse Resp BP Pulse Ox O2 Del Method 11/24/23 08:14 36.5 C 66 17 117/68 93 Room Air 11/24/23 07:09 59 L 11/24/23 03:51 36.8 C 71 18 126/72 93 Room Air 11/23/23 23:00 36.9 C 59 L 18 120/74 94 Room Air 11/23/23 22:45 60 Laboratory Results Short CBC 11/24/23 Range/Units 05:45 WBC 4.74 L (4.8-10.8) K/ul Hgb 14.0 (12.0-16.0) g/dl Hct 42.6 (37.0-47.0) % Plt Count 243 (130-400) K/uL BMP 11/24/23 05:45 Sodium 139 Potassium 4.5 D Chloride 106 Carbon Dioxide 27 BUN 21 Creatinine 0.85 Glucose 97 Calcium 9.6 Medications Administered Home Medications Medication Instructions Recorded Confirmed Last Taken Aspir-81 81 mg PO DAILY 11/23/23 11/23/23 Unknown Calcium 600 + D(3) 1 tab PO DAILY 11/23/23 11/23/23 Unknown Vitamin C 1,000 mg PO DAILY 11/23/23 11/23/23 Unknown atenolol 25 mg tablet 25 mg PO DAILY 11/23/23 11/23/23 Unknown fluticasone propionate 2 spray DAILY 11/23/23 11/23/23 Unknown losartan 100 mg tablet 50 mg PO BID 11/23/23 11/23/23 Unknown sertraline 50 mg tablet 50 mg PO DAILY 11/23/23 11/23/23 Unknown zinc 50 mg PO DAILY 11/23/23 11/23/23 Unknown Active Medications Generic Name Dose Route Start Last Admin Trade Name Freq PRN Reason Stop Dose Admin Atenolol 50 mg 11/23/23 09:00 11/24/23 08:27 Atenolol 50 Mg Tablet PO 12/23/23 08:59 50 mg QAM DEYSI Administration Enoxaparin Sodium 40 mg 11/23/23 09:00 11/24/23 08:28 Enoxaparin Inj 40 Mg/0.4 Ml Syr SQ 12/23/23 08:59 40 mg QAM DEYSI Administration Ceftriaxone Sodium 2,000 mg in 50 mls @ 100 mls/hr 11/24/23 06:00 11/24/23 06:29 Rocephin IV 12/04/23 05:59 Infused Q24H DEYSI Infusion Losartan Potassium 50 mg 11/23/23 21:00 11/24/23 08:28 Losartan Potassium 50 Mg Tab PO 12/23/23 20:59 50 mg BID DEYSI Administration Sertraline HCl 50 mg 11/23/23 09:00 11/24/23 08:27 Sertraline Hcl 50 Mg Tablet PO 12/23/23 08:59 50 mg QAM DEYSI Administration
[2023-11-25 03:17] VITALS: O2SAT 92
[2023-11-25 06:32] LABS: BUN Creatinine Ratio 30.3 (10-20); Calcium 9.5 mg/dl (8.6-10.3); Creatinine Clr Calc Pharmacy 48.2 ml/min; Est GFR (African American) 83.5 ml/min; Magnesium 2.2 mg/dl (1.7-2.4); Potassium 4.7 mmol/L (3.5-5.1)
--- NOTE | 2023-11-25 10:45 | Cardiology Progress Note ---
Date of Service November 25, 2023 Assessment & Plan (1) Dyspnea on exertion: (2) Hypertension: (3) Aortic stenosis: (4) Coronary artery calcification: Plan Proceed with Lexiscan nuclear stress test today. Add statin therapy and low-dose aspirin due to presence of coronary artery calcifications. Continue atenolol and losartan as ordered. Admission and Anticipated Discharge Date Admission Date: November 23, 2023 Subjective 83-year-old female seen and examined at the bedside. Denies chest pain or shortness of breath at rest. Telemetry reveals sinus rhythm in the 50s and 60s. Scheduled for Lexiscan nuclear stress test later today. Currently NPO. Offers no concerns/complaints. Review of Systems Review of Systems: All systems reviewed & are unremarkable except as noted in Subjective Physical Exam Constitutional: well developed and well nourished; no acute distress Respiratory: no respiratory distress, no labored breathing and no retractions Cardiovascular: Rate/Rhythm: regular rate and regular rhythm Heart Sounds: normal S1, normal S2 and + murmur (2/6 mid peaking, low pitch systolic ejection murmur) Vessels: radial pulses present; no JVD and no carotid bruit Extremities: no edema Gastrointestinal (Abdomen): Inspection/Auscultation: normal bowel sounds; abdomen not distended Percussion/Palpation: abdomen soft; abdomen nontender, no guarding and abdomen not rigid Neurologic: CN's II-XI intact bilaterally and moves all extremities; no focal motor deficits Results & Data Vital Signs (Past 12 Hours) Vital Signs Temp Pulse Pulse Resp BP Pulse Ox O2 Del Method 11/25/23 07:34 36.6 C 82 18 165/96 H 92 Room Air 11/25/23 02:45 36.8 C 76 16 127/80 92 Room Air 11/24/23 23:51 53 L 11/24/23 23:35 36.5 C 62 14 145/81 H 94 Room Air Laboratory Results Comprehensive Metabolic Panel 11/25/23 Range/Units 05:50 Sodium 138 (136-145) mmol/L Potassium 4.7 (3.5-5.1) mmol/L Chloride 106 (98-107) mmol/L Carbon Dioxide 27 (21-32) mmol/L BUN 23 (6-23) mg/dl Creatinine 0.76 (0.6-1.2) mg/dl Glucose 91 (70-99(Fasting)) mg/dl Calcium 9.5 (8.6-10.3) mg/dl Intake and Output 11/24/23 11/25/23 11/25/23 22:59 06:59 14:59 Intake Total 240 / 850 50 / 850 Balance 240 / 850 50 / 850 Intake: IV 50 / 50 cefTRIAXone SODIUM 2,000 mg In 50 / 50 50 ml @ 100 mls/hr IV Q24H [facility] Rx#:[id number] Oral 240 / 800 Other: Weight 63.4 kg Weight Measurement Method Built in [facility] (2) Hypertension Hypertension type: primary hypertension Qualified Code(s): I10 - Essential (primary) hypertension (3) Aortic stenosis Cardiac valve disease etiology: nonrheumatic Qualified Code(s): I35.0 - Nonrheumatic aortic (valve) stenosis
[2023-11-25 11:36] LABS: Albumin Level 3.5 gm/dl (3.4-5.0); Bilirubin Direct 0.1 mg/dl (0-0.2); Bilirubin,Total 0.9 mg/dl (0.2-1.0); Chol HDL Ratio 3.8 (0-5); Total Protein 6.7 gm/dl (6.0-8.3)
[2023-11-25] MEDS: ASPIRIN 81 MG ECTAB PO SCH (12:02)
[2023-11-25] MEDS ORDERED: REGADENOSON 0.4 MG/5 ML SYR IV ONE (13:20)
[2023-11-25 15:33] VITALS: BP 120/77; PULSE 53; RESP 18; TEMP 97.7
--- NOTE | 2023-11-25 15:39 | Myocardial Perfusion Study ---
Date of Service November 25, 2023 Myocardial Perfusion Study [facility] Myocardial Perfusion Study Report Indication: Shortness of breath, coronary artery calcifications. Patient perform stress test according to the Lexiscan protocol for 3 minutes and 31 seconds, achieving work level of 1.0 METS. Resting heart rate of 60 bpm joe to a maximum heart rate of 94 bpm. This value represents 69% of the maximal, age-predicted heart rate. The resting blood pressure of 166/94 mmHg joe to a maximum blood pressure of 181/92 millimeters mercury. Stress test was stopped due to completion of protocol. Resting ECG: Normal sinus rhythm, poor R wave progression. Stress ECG: No ischemia. Normal heart rate and blood pressure response to Lexiscan infusion. Symptoms: Headache, nausea, shortness of breath, chest heaviness. Nuclear imaging: For the stress portion of the study 30.5 mCi of technetium 99m Cardiolite was injected 1403 p.m. on 11/25/2023. 30 minutes following the injection imaging of the heart was performed in multiple projections For the rest portion of the study 10.5 mCi of Tc 99m Cardiolite was injected at 12:25 PM. 1 hour following the injection, imaging of the heart was performed in the same projections. Raw data: No significant extracardiac uptake of isotope tracer. Right ventricle: Not well-visualized. Resting images: Normal perfusion. Stress images: Normal perfusion. No reversible defects to suggest ischemia. Gated SPECT imaging: Normal wall motion and myocardial thickening. Calculated left ventricular ejection fraction >70%. Conclusion: 1. Normal Lexiscan myocardial perfusion imaging studies without evidence of inducible ischemia or myocardial scar. 2. Normal gated SPECT imaging. 3. Calculated left ventricular ejection fraction >70%. Cody Mukherjee DO, [facility]
--- NOTE | 2023-11-25 15:54 | Discharge Summary ---
Discharge Summary Date of Service November 25, 2023 Principal Dx & Hospital Course #1 = Principal Diagnosis (1) Uncontrolled hypertension: (2) Acute hypoxemic respiratory failure: (3) Acute UTI (urinary tract infection): (4) Generalized anxiety disorder: (5) Coronary artery calcification: (6) Aortic stenosis: Plan Patient presented to the emergency room with acute shortness of breath and uncontrolled hypertension. In the emergency room she was noted be very hypertensive and some mild hypoxia. Patient was admitted to the hospital. She was monitored on telemetry. Troponins were trended and were negative times both sets. CT of the chest ruled out pulmonary embolism. It did show some coronary calcifications however. Cardiology consultation was obtained. Her atenolol was increased and her blood pressure became much better controlled. Is also recognized that she had significant amounts of anxiety. Her PCP just recently started her on sertraline and this was continued. Cardiology recommended stress Myoview. On the day of discharge patient underwent stress testing that was negative for evidence of ischemia. With controlling her blood pressure her hypoxia resolved and she was titrated to room air. Her urinalysis initially was also abnormal. She was started on ceftriaxone. Urine culture grew out Citrobacter that was sensitive to ceftriaxone. She completed full course of antibiotics here in the hospital. On the day of discharge her blood pressure is well-controlled. Anxiety was managed with continuing her Zoloft and she can follow-up with her outpatient providers and cardiology. Notes For Next Care Provider May need additional adjustments to medications for her anxiety and blood pressure Medication Changes From Visit Atenolol dose increased Admission HPI Per Admitting Provider History obtained from patient, family, and records. Medical history significant for hypertension, valvular heart disease (mild to moderate , mild AR/MR, TTE 2023), R breast cancer status post surgery and letrozole Rx, colon cancer status post surgery, anxiety. Patient has had uncontrolled blood pressure the last 2 months. SBP 1 20-1 90s as per patient. Compliant with home meds. Denies OTC NSAID intake. Denies unusual stress at home. No sleep apnea concerns as per family. Denies headache, chest pain, abdominal pain complaints. Some SOB usually on exertion. No fluid retention. PCP recently started sertraline for anxiety which was thought to be adding to patient's blood pressure issues. Outpatient 2D echo requested and done last month at [facility]. Outpatient [facility] cardiology referral scheduled February 2024. Patient recently completed antibiotic Rx for sinus infection. Patient woke up this morning with tingling discomfort both arms. No headache, no chest pain. Worsening SOB. Increased urinary frequency without abdominal pain complaints. No fever, no chills. Highest SBP of 210 documented at the ER. O2 sats of 80s documented at the ER. IV labetalol administered at the ER. 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 Lungs: Clear to auscultation, decreased, no wheezes rales or rhonchi CV: S1-S2, regular, grade 3/6 to 4/6 systolic ejection murmur Abdomen: Soft, nontender, nondistended Extremities: No significant edema Neuro: No focal deficits Psych: Cooperative, mild anxiety Updated Medication List Medication Instructions Recorded Confirmed Type Aspir-81 81 mg PO DAILY 11/23/23 11/23/23 History Calcium 600 + D(3) 1 tab PO DAILY 11/23/23 11/23/23 History Vitamin C 1,000 mg PO DAILY 11/23/23 11/23/23 History atenolol 25 mg tablet 25 mg PO DAILY 11/23/23 11/23/23 History fluticasone propionate 2 spray DAILY 11/23/23 11/23/23 History losartan 100 mg tablet 50 mg PO BID 11/23/23 11/23/23 History sertraline 50 mg tablet 50 mg PO DAILY 11/23/23 11/23/23 History zinc 50 mg PO DAILY 11/23/23 11/23/23 History atenolol 50 mg tablet 50 mg PO QAM #30 tabs 11/25/23 Rx atorvastatin 10 mg tablet 10 mg PO QAM #30 tabs 11/25/23 Rx Hospital Stay Data Consultations 11/23/23 05:58 ED Decision to Admit Stat 11/23/23 08:32 Consult Cardiology Routine Diagnostic Imagining Performed Reviewed imaging, laboratory and diagnostic studies. Pertinent findings as below. Exercise stress Myoview negative for evidence of ischemia Urine culture Citrobacter that was pansensitive Troponins negative for ischemia 11/23/23 04:41 CT head/brain wo con Stat 11/23/23 06:44 CT angio chest PE protocol Stat Pending Results Patient Have Any Pending Studies at Discharge: No Discharge Instructions Given to Patient (Per Discharging Provider) Discussed with your PCP ongoing treatment for your anxiety Total Time Total Time Spent Total Time Spent (In Minutes): 35
[2023-11-26] MEDS ORDERED: ATORVASTATIN 10 MG TAB PO SCH (09:00)
== END 2023-11-25 17:08 | disposition home or self-care (01) | DRG 304 ==
LOC: ED 04:16 → SUATTDRO 06:46 → 4W 06:46

== ENCOUNTER 2024-07-28 11:51 | Inpatient (IN) ==
--- NOTE | 2024-07-28 11:55 | Emergency Department Note ---
Impression & Plan CHB (complete heart block), Hypertensive urgency, Headache ED Provider Note NAME: ZAINAB CHAUDHARY AGE: 83 SEX: F : 1940 ARRIVES VIA: Walk-In INFORMANT: Patient, family ED PROVIDER(S): Lavon Sprague MD CHIEF COMPLAINT: Complete heart block, outpatient referral, RANDALL, palpitations MEDICAL DECISION MAKING: Patient presents from the above. I did speak with cardiology service Dr. Hugo who had seen the patient in clinic. IV was established and blood work was obtained. Patient was ordered IV hydralazine 10 mg as well as p.o. Tylenol. Patient was still having some headache that seemed worse after receiving the medications but this patient was still hypertensive. No reported falls or trauma the patient is not meningitic encephalopathic. Do not feel she warrants CT of the head at this time. Blood work reassuring with a normal white count hemoglobin and platelet count. The patient's kidney function is unremarkable. Lyme negative. TSH is normal. Troponin negative. Patient was ordered additional IV hydralazine 10 mg. Patient did have improvement in her blood pressure into the 160s. In clinic it had been reported to be as high as 230s. Chest x-ray unremarkable. Pacer pads were in place. No acute indication for emergent external pacing at this time. I did speak with on-call wafer polisher Dr. Mukherjee to make him aware and subsequently did speak with the on-call hospitalist service. I did speak with RUTHIE Stern and the patient was admitted by Dr. Christianson to the intensive care unit. Critical Care: I have personally spent 48 minutes of critical care time in direct management of this patient. This includes bedside care, interpretation of diagnostic studies, and testing, discussion with consultants, patient, and family members, and other require inpatient management activities. This 48 minutes is in excess of all separately billable procedures. Discussion w/ other healthcare providers: Dr. Hugo outpatient cardiology inpatient RUTHIE Montoya with Dr. Christianson inpatient medicine service Dr. Mukherjee cardiology Prior /Outside records reviewed: None Differential diagnosis: Reactive airway disease, pneumonia, pneumothorax, COPD, CHF, ACS, pulmonary embolism, musculoskeletal, GERD as well as other pathologies were considered. Diagnostics, as interpreted by me: ECG: None likely complete heart block P waves do not always correlate with the QRS complex. Ventricular rate of 38. Left axis deviation no obvious ST elevations. Cardiac monitoring: An order was placed for continuous cardiac monitoring. The monitor shows a rate of 42 with likely heart block rhythm Patient was placed on pulse oximetry Medical decision rules: None Imaging studies: I informally interpreted the patient's chest x-ray without obvious pneumonia with formal report to follow. HPI: Patient presents due to concern for complete heart block dyspnea on exertion and palpitations. The patient reportedly had about 3 weeks of symptoms before presenting for an acute care visit with cardiology today. She was seen by Dr. Hugo under the patient. Be in complete heart block and was referred here for further evaluation and treatment. The patient does take metoprolol 50 mg which she did take this morning. Patient does have a prior history of SVT. Patient states that she does not have any symptoms at rest but only with activity. She denies any recent falls or trauma. No cough or fever no leg swelling or calf pain. PAST MEDICAL HISTORY: See Below PAST SURGICAL HISTORY: See Below SOCIAL HISTORY: See Below HOME MEDICATIONS: See Below ALLERGIES: See Below VITALS: See Below PHYSICAL EXAMINATION: GENERAL: NAD, non-toxic. Wearing glasses. EYE EXAM: Normal conjunctiva. PERRL, no anisocoria and EOM's grossly intact w/o pain. OROPHARYNX: Moist mucus membranes, grossly normal dentition. NECK: Trachea midline, no stridor. Supple, no nuchal rigidity, no adenopathy, non-tender. No signs of meningismus. FROM of the neck with good chin to chest and neck extension. LUNGS: Clear to auscultation. Normal chest wall mechanics. HEART: Irregular, no MRG. ABDOMEN: Abdomen soft, non-tender, no masses, no rebound or guarding. BACK: No CVA TTP. SKIN: No rashes and no bruising. UPPER EXTREMITIES: Upper extremities are grossly normal. LOWER EXTREMITIES: Grossly normal, no edema. NEURO EXAM: A&O x3, cranial nerves II-XII grossly intact, normal speech, moves all 4 extremities. Past Med/Surg History Problem List (Updated 07/29/24 @ 16:27 by Lavon Sprague MD) Headache (Acute) Hypertensive urgency (Acute) CHB (complete heart block) (Acute) Hypertensive urgency Third degree heart block Bradycardia Generalized anxiety disorder Uncontrolled hypertension Coronary artery calcification Aortic stenosis Sinus tachycardia Paresthesia of arm (Acute) Exercise hypoxemia (Acute) Hypertension (Acute) Dyspnea on exertion (Acute) Medical History Acute hypoxemic respiratory failure Acute UTI (urinary tract infection) Social History Smoking Status: Never smoker Second Hand Exposure: No; Do You Dip or Chew Tobacco: No; Hx Alcohol Use: No Hx Substance Use: No Preferred Language: Tongan Communication Ability: Effective Color Control Operator Required: No Beliefs That Will Affect Care: None Current Living Situation: Other 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 Safe at Home: Yes Assistive Devices: None Allergies Allergies Allergy/AdvReac Type Severity Reaction Status Date / Time Sulfa (Sulfonamide Allergy Vomiting Verified 11/23/23 06:04 Antibiotics) Home Meds Home Medications Medication Instructions Recorded Confirmed ascorbic acid (vitamin C) 1,000 mg 1,000 mg PO DAILY ##0 11/23/23 07/28/24 tablet (Vitamin C) aspirin 81 mg tablet,delayed 81 mg PO DAILY ##0 11/23/23 07/28/24 release calcium 600 mg (as 1 tab PO DAILY ##0 11/23/23 07/28/24 carbonate)-vitamin D3 10 mcg (400 unit) tablet (Calcium 600 + D(3)) fluticasone propionate 50 2 spray intranasal DAILY ##0 11/23/23 07/28/24 mcg/actuation nasal spray,suspension losartan 100 mg tablet 50 mg PO BID 11/23/23 07/28/24 sertraline 50 mg tablet 50 mg PO DAILY 11/23/23 07/28/24 zinc acetate 25 mg (zinc) capsule 25 mg PO DAILY ##0 11/23/23 07/28/24 furosemide 20 mg tablet 20 mg PO QAM 07/28/24 07/28/24 metoprolol succinate 50 mg 50 mg PO DAILY 07/28/24 07/28/24 tablet,extended release 24 hr rosuvastatin 10 mg tablet 10 mg PO DAILY 07/28/24 07/28/24 Results & Data (ED) Vital Signs Vital Signs - 24 hr 07/28/24 11:54 Temperature 36.7 C Temperature Source Temporal Artery Scan Pulse Rate 89 Respiratory Rate 18 Respiratory Effort / Characteristics Non-Labored Spontaneous Respiratory Depth Normal Respiratory Pattern Regular Blood Pressure 223/129 H Blood Pressure Mean 160 Pulse Oximetry 94 Oxygen Delivery Method Room Air Sepsis Recent Fever Within 48 Hours No Sepsis New/Unexplained Change in Mental Status N/A Sepsis Action Taken by Nursing No Action Required Home Medications Current Medication List: was personally reviewed by me Laboratory Data Attestation: I reviewed the patient's lab results. 07/29/24 05:20 07/29/24 05:20 Lab Results 07/28/24 Range/Units 12:05 WBC 7.89 (4.8-10.8) K/ul RBC 5.12 (4.20-5.40) M/uL Hgb 16.0 (12.0-16.0) g/dl Hct 48.8 H (37.0-47.0) % MCV 95.3 (80.0-100.0) fL MCH 31.3 (25.0-34.0) pg MCHC 32.8 (32.0-36.0) g/dL RDW Std Deviation 47.4 H (36.4-46.3) fL RDW Coeff of Keisha 13.3 (11.5-14.5) % Plt Count 265 (130-400) K/uL MPV 9.9 (9.4-12.4) fL Immature Gran % (Auto) 0.3 % Neut % (Auto) 77.6 % Lymph % (Auto) 12.5 % [place] % (Auto) 7.7 % Eos % (Auto) 1.1 % Baso % (Auto) 0.8 % Neut # (Auto) 6.12 (1.40-6.50) K/uL Lymph # (Auto) 0.99 L (1.20-3.40) K/uL [place] # (Auto) 0.61 H (0.11-0.59) K/uL Eos # (Auto) 0.09 (0.00-0.50) K/uL Baso # (Auto) 0.06 (0.00-0.20) K/uL Immature Gran # (Auto) 0.02 (0.01-0.20) K/uL Sodium 141 (136-145) mmol/L Potassium 4.0 (3.5-5.1) mmol/L Chloride 105 (98-107) mmol/L Carbon Dioxide 29 (21-32) mmol/L Anion Gap 7 (3-11) BUN 19 (6-23) mg/dl Creatinine 0.80 (0.6-1.2) mg/dl Est Cr Clr Drug Dosing 43.3 ml/min eGFR 72.61 BUN/Creatinine Ratio 23.8 H (10-20) Glucose 93 (70-99(Fasting)) mg/dl Calcium 9.8 (8.6-10.3) mg/dl Magnesium 2.2 (1.7-2.4) mg/dl Total Bilirubin 1.4 H (0.2-1.0) mg/dl AST 26 (13-39) U/L ALT 22 (7-52) U/L Alkaline Phosphatase 126 H (34-104) U/L Troponin I High Sens 9.4 (0-14) pg/ml Total Protein 8.5 H (6.0-8.3) gm/dl Albumin 4.2 (3.4-5.0) gm/dl Globulin 4.3 H (2.5-4.0) gm/dl Albumin/Globulin Ratio 1.0 (0.9-2) TSH 2.131 (0.300-4.500) uIu/ml Lyme Disease Screen Negative (Negative) Administered Medications Acetaminophen (Acetaminophen 325 Mg Tab) 650 mg PO Q4H PRN PRN Reason: Pain or Fever Stop: 08/27/24 20:20 Last Admin: 07/29/24 07:55 Dose: 650 mg Documented By: Admin: 07/28/24 20:36 Dose: 650 mg Documented By: EUGENE Ascorbic Acid (Ascorbic Acid 500 Mg Tab) 1,000 mg PO DAILY [facility] Stop: 08/28/24 08:59 Last Admin: 07/29/24 09:11 Dose: 1,000 mg Documented By: LAWANDA Calcium/Vitamin D (Calcium 600mg + Vit D 400 Iu Tab) 1 tab PO DAILY [facility] Stop: 08/28/24 08:59 Last Admin: 07/29/24 09:26 Dose: Not Given Documented By: LAWANDA Furosemide (Furosemide 20 Mg Tab) 20 mg PO QAM [facility] Stop: 08/28/24 08:59 Last Admin: 07/29/24 09:11 Dose: 20 mg Documented By: LAWANDA Lidocaine HCl (Lidocaine 2% Jelly 5 Ml Tube) 1 ml EXT ONCE PRN PRN Reason: irritation from [place] Stop: 08/27/24 21:19 Last Admin: 07/28/24 21:52 Dose: 1 ml Documented By: EUGENE Losartan Potassium (Losartan Potassium 50 Mg Tab) 50 mg PO BID [facility] Stop: 08/27/24 20:59 Last Admin: 07/29/24 09:11 Dose: 50 mg Documented By: Admin: 07/28/24 20:36 Dose: 50 mg Documented By: EUGENE Miscellaneous (Icu Protocol For Hyperglycemia) 1 each N/A ACHS [facility] Stop: 07/30/24 16:29 Last Admin: 07/29/24 11:34 Dose: Not Given Documented By: Admin: 07/29/24 07:02 Dose: Not Given Documented By: Admin: 07/28/24 21:07 Dose: Not Given Documented By: Admin: 07/28/24 16:15 Dose: Not Given Documented By: LAWANDA Ondansetron HCl (Ondansetron Inj 2 Mg/Ml 2 Ml Vial) 4 mg IV Q6H PRN PRN Reason: Nausea And Vomiting Stop: 08/28/24 07:44 Last Admin: 07/29/24 07:55 Dose: 4 mg Documented By: LAWANDA Rosuvastatin Calcium (Rosuvastatin Calcium 10 Mg Tab) 10 mg PO DAILY [facility] Stop: 08/28/24 08:59 Last Admin: 07/29/24 09:11 Dose: 10 mg Documented By: LAWANDA Discontinued Medications Acetaminophen (Acetaminophen 500 Mg Tab) 1,000 mg PO NOW STA Stop: 07/28/24 12:10 Last Admin: 07/28/24 12:20 Dose: 1,000 mg Documented By: NMS Bupivacaine HCl (Bupivacaine 0.25% Pf 30 Ml Vial) Confirm Administered Dose 30 ml .ROUTE .STK-MED ONE Stop: 07/29/24 06:47 Last Admin: 07/29/24 15:04 Dose: 30 ml Documented By: KMZ Cefazolin Sodium (Cefazolin 330 Mg/Ml 1 Gm Vial) Confirm Administered Dose 990 mg .ROUTE .STK-MED ONE Stop: 07/29/24 13:08 Last Admin: 07/29/24 15:04 Dose: 990 mg Documented By: TLF Fentanyl Citrate (Fentanyl Citrate Pf 100 Mcg/2 Ml Vial) Confirm Administered Dose 100 mcg .ROUTE .STK-MED ONE Stop: 07/29/24 13:08 Last Increment: 04/23/25 15:04 Dose: 50 mcg Documented By: SHELBY Hydralazine HCl (Hydralazine Hcl 20 Mg/Ml Vial) 10 mg IV NOW STA Stop: 07/28/24 12:10 Last Admin: 07/28/24 12:20 Dose: 10 mg Documented By: SUHAIL Hydralazine HCl (Hydralazine Hcl 20 Mg/Ml Vial) 10 mg IV NOW STA Stop: 07/28/24 13:07 Last Admin: 07/28/24 13:28 Dose: 10 mg Documented By: SUHAIL Hydralazine HCl (Hydralazine Hcl 20 Mg/Ml Vial) 10 mg IV Q4H PRN PRN Reason: sbp > 175 or DBP > 90 Stop: 08/27/24 14:27 Last Admin: 07/29/24 05:08 Dose: 10 mg Documented By: EUGENE Lidocaine HCl (Lidocaine 1% Local 20 Ml Vial) Confirm Administered Dose 20 ml .ROUTE .STK-MED ONE Stop: 07/29/24 06:46 Last Admin: 07/29/24 15:03 Dose: 20 ml Documented By: TAMIKO Midazolam HCl (Midazolam Hcl 5 Mg/Ml 1 Ml Vial) Confirm Administered Dose 5 mg .ROUTE .STK-MED ONE Stop: 07/29/24 13:08 Last Increment: 07/29/24 15:04 Dose: 2 mg Documented By: SHELBY Sterile Water (Water, Sterile For Inj 10 Ml Vial) Confirm Administered Dose 10 ml .ROUTE .STK-MED ONE Stop: 07/29/24 06:47 Last Admin: 07/29/24 15:04 Dose: 10 ml Documented By: TAMIKO Vancomycin HCl (Vancomycin Hcl 1000mg/20ml Vial) Confirm Administered Dose 50 mg .ROUTE .STK-MED ONE Stop: 07/29/24 06:46 Last Admin: 07/29/24 15:04 Dose: 50 mg Documented By: TAMIKO Imaging Data Radiologist's Impression: Chest X-Ray 07/28/24 11:58 XR chest 1V portable CLINICAL HISTORY: Dysrhythmia COMPARISON STUDY: 11/23/2023. FINDINGS: Heart size and pulmonary vasculature are normal. Stable hyperexpanded lungs. No consolidation, pleural effusion, or pneumothorax. IMPRESSION: No acute findings. ACT 112: Negative or not required by law. Electronically signed by: Héctor Loera M.D. 07/28/2024 12:15 PM Discharge Plan Visit Data Chief Complaint: Cardiac Assessment Stated Complaint: CARDIAC ASSESSMENT ED Provider: Lavon Sprague Discharge Problem: CHB (complete heart block), Hypertensive urgency, Headache Patient Disposition: Admitted As Inpatient Discharge Instructions Interventions: ED Discharge Assessment Last Done: 07/28/24 15:29 Discharge Problem: Headache Qualifiers: Headache type: unspecified Headache chronicity pattern: acute headache I ntractability: not intractable Qualified Code(s): R51.9 - Headache, unspecified
--- NOTE | 2024-07-28 12:17 | XRay Report ---
XR chest 1V portable CLINICAL HISTORY: Dysrhythmia COMPARISON STUDY: 11/23/2023. FINDINGS: Heart size and pulmonary vasculature are normal. Stable hyperexpanded lungs. No consolidati on, pleural effusion, or pneumothorax. IMPRESSION: No acute findings. ACT 112: Negative or not required by law. Electronically signed by: Héctor Loera M.D. 07/28/2024 12:15 PM
[2024-07-28] MEDS: ACETAMINOPHEN 500 MG TAB PO STA (12:20)
[2024-07-28] MEDS: hydrALAZINE HCL 20 MG/ML VIAL IV STA ×2 (12:20→13:28)
[2024-07-28 12:51] LABS: Basophils # (auto) 0.06 K/uL (0.00-0.20); Basophils % (auto) 0.8 %; Eosinophils # (auto) 0.09 K/uL (0.00-0.50); Eosinophils % (auto) 1.1 %; Hematocrit (blood only) 48.8 % (37.0-47.0); Immature Granulocytes # (auto) 0.02 K/uL (0.01-0.20); Immature Granulocytes % (auto) 0.3 %; Lymphocytes # (auto) 0.99 K/uL (1.20-3.40); Lymphocytes % (auto) 12.5 %; Mean Corpuscular Hemoglobin 31.3 pg (25.0-34.0); Mean Corpuscular Hgb Conc 32.8 g/dL (32.0-36.0); Mean Corpuscular Volume 95.3 fL (80.0-100.0); Mean Platelet Volume 9.9 fL (9.4-12.4); Monocytes # (auto) 0.61 K/uL (0.11-0.59); Monocytes % (auto) 7.7 %; Neutrophils # (auto) 6.12 K/uL (1.40-6.50); Neutrophils % (auto) 77.6 %; Platelet Count 265 K/uL (130-400); RDW Coefficient of Variation 13.3 % (11.5-14.5); RDW Standard Deviation 47.4 fL (36.4-46.3); Red Blood Count 5.12 M/uL (4.20-5.40); White Blood Count 7.89 K/ul (4.8-10.8)
[2024-07-28 12:52] LABS: Albumin Level 4.2 gm/dl (3.4-5.0); Bilirubin,Total 1.4 mg/dl (0.2-1.0); Calcium 9.8 mg/dl (8.6-10.3); Magnesium 2.2 mg/dl (1.7-2.4)
[2024-07-28 12:57] LABS: Troponin I High Sensitivity 9.4 pg/ml (0-14)
[2024-07-28 12:58] LABS: BUN Creatinine Ratio 23.8 (10-20); Creatinine Clr Calc Pharmacy 43.3 ml/min; Globulin 4.3 gm/dl (2.5-4.0); Total Protein 8.5 gm/dl (6.0-8.3)
[2024-07-28 13:04] LABS: Thyroid Stimulating Hormone 2.131 uIu/ml (0.300-4.500)
--- NOTE | 2024-07-28 14:22 | History & Physical Report ---
Date of Service July 28, 2024 Assessment & Plan (1) Generalized anxiety disorder: (2) Uncontrolled hypertension: (3) Coronary artery calcification: (4) Aortic stenosis: (5) Bradycardia: (6) Third degree heart block: (7) Dyspnea on exertion: Plan The patient is a 83-year-old female who presented to the ED on 07/28/2024 after she was sent in by Dr. Mckeonfound to be in third-degree heart block Bradycardia/third-degree heart block: Reports progressive shortness of breath over the past few months, recheck echo, chest x-ray negative Heart rates in the 30s, 40s, admit to ICU for close monitoring, cardiology consulted Plan for pacemaker placement in the next 24 hours, hold metoprolol Uncontrolled hypertension: Hx aortic stenosis: SBPs originally in the 200s, improved to 160s after hydralazine, hold losartan Utilize hydralazine for SBP over 180, hold aspirin for anticipation of pacemaker placement Hx HLD: Continue statin Hx anxiety: Hold sertraline, avoid QT prolongation and third-degree heart block A total of 60 minutes was spent on chart review/ discussion with consultants/reviewing diagnostic data/facilitating plan of care Full code DVT prophylaxis: SCDs, hold off on AC with possible upcoming procedure History of Present Illness Chief Complaint: Shortness of breath, intermittent dizziness Primary Care Provider: Stevie Mcclain The patient is an 83-year-old female with a past medical history of HTN, aortic stenosis, [place], tachycardia, breast and colon cancerin remission who presents to the ED on after she was sent in from Dr. Hugo's office after she was noted to be in third-degree heart block. Patient reports over the past 3-4 months her shortness of breath has continued to worsen. She reports she is unable to walk up a flight of steps or take long walks without having to sit down to catch her breath. She denies chest pain with this. Denies any recent changes in her medication. Does report having COVID about 3 months ago but reports her shortness of breath occurred prior to her COVID diagnosis. Patient also reports that when she begins to move her heart rate spikes to the 120s. She noted this by her Apple Watch. She reports compliance with taking metoprolol 50 mg daily. She denies any nausea/vomiting/diarrhea. Patient was recently admitted to the hospital in November 2023 with shortness of breath and uncontrolled hypertension. At this time she had recently had an echo that was fairly unremarkable. At this time, she was started on ceftriaxone for UTI. At this time, she was scheduled to follow-up with cardiology in February. Echo from October 2023 with EF of 55-60%. Mild to moderate aortic stenosis, mild aortic regurgitation. On arrival to the ED, labs are fairly unremarkable. Total bili mildly elevated at 1.4, alk phos 126, Lyme screening pending, TSH within normal limits, electrolytes within normal limits. Chest x-ray was negative The patient's blood pressure was in the 200s on arrival. She was given IV hydralazine with improvement. After discussion with cardiology, it was recommended for ICU admission for closer monitoring. Will plan for pacemaker likely in the next 24 hours if symptoms persist. Allergies Allergy/AdvReac Type Severity Reaction Status Date / Time Sulfa (Sulfonamide Allergy Vomiting Verified 11/23/23 06:04 Antibiotics) Home Medications Medication Instructions Recorded Confirmed Type ascorbic acid (vitamin C) 1,000 mg 1,000 mg PO DAILY ##0 11/23/23 07/28/24 History tablet (Vitamin C) aspirin 81 mg tablet,delayed 81 mg PO DAILY ##0 11/23/23 07/28/24 History release calcium 600 mg (as 1 tab PO DAILY ##0 11/23/23 07/28/24 History carbonate)-vitamin D3 10 mcg (400 unit) tablet (Calcium 600 + D(3)) fluticasone propionate 50 2 spray intranasal DAILY ##0 11/23/23 07/28/24 History mcg/actuation nasal spray,suspension losartan 100 mg tablet 50 mg PO BID 11/23/23 07/28/24 History sertraline 50 mg tablet 50 mg PO DAILY 11/23/23 07/28/24 History zinc acetate 25 mg (zinc) capsule 25 mg PO DAILY ##0 11/23/23 07/28/24 History furosemide 20 mg tablet 20 mg PO QAM 07/28/24 07/28/24 History metoprolol succinate 50 mg 50 mg PO DAILY 07/28/24 07/28/24 History tablet,extended release 24 hr rosuvastatin 10 mg tablet 10 mg PO DAILY 07/28/24 07/28/24 History Past Med/Surg History Problem List (Updated 07/28/24 @ 14:44 by Stephany Liao PA-C) Hypertensive urgency Third degree heart block Bradycardia Generalized anxiety disorder Uncontrolled hypertension Coronary artery calcification Aortic stenosis Sinus tachycardia Paresthesia of arm (Acute) Exercise hypoxemia (Acute) Hypertension (Acute) Dyspnea on exertion (Acute) Medical History (Updated 07/28/24 @ 14:44 by Stephany Liao PA-C) Acute hypoxemic respiratory failure Acute UTI (urinary tract infection) Social History (System 07/31/18 @ 13:55 by Kari Rodgers) Smoking Status: Never smoker Hx Alcohol Use: No Hx Substance Use: No Preferred Language: Iranian Communication Ability: Effective Stock Trader Required: No Beliefs That Will Affect Care: None Current Living Situation: Significant Other Feels Safe at Home: Yes Assistive Devices: None Review of Systems Review of Systems: All systems reviewed & are unremarkable except as noted in HPI & below All negative aside from as stated in HPI Physical Exam Constitutional: WD/WN, vitals as above Eyes: PERRL, conjunctivae normal, anicteric sclerae ENMT: external ear and nose normal, oropharynx normal Neck: trachea midline, no thyromegaly Respiratory: normal respiratory effort, lungs clear to auscultation (Shortness of breath) Cardiovascular: RRR, no murmur, no edema Rate/Rhythm: + bradycardic (HR 30s-40s) Gastrointestinal (Abdomen): normal bowel sounds, soft, nontender, no hepatosplenomegaly Musculoskeletal: no cyanosis or clubbing, extremities motor strength 5/5 Skin: no rashes, warm and dry Neurologic: PERRL, EOMI, accommodation nl, no face palsy, no dysarthria Psychiatric: A+Ox3, euthymic affect (Anxious on exam) Results & Data Results & Data Vital Signs (Past 12 Hours) Vital Signs Temp Pulse Resp BP Pulse Ox O2 Del Method 07/28/24 12:30 196/71 H 07/28/24 12:06 38 L 19 205/76 H 98 Room Air 07/28/24 12:02 39 L 07/28/24 11:54 36.7 C 89 18 223/129 H 94 Room Air Diagnostic Findings Laboratory Results WBC 7.89 K/ul (4.8-10.8) 07/28/24 12:05 RBC 5.12 M/uL (4.20-5.40) 07/28/24 12:05 Hgb 16.0 g/dl (12.0-16.0) 07/28/24 12:05 Hct 48.8 % (37.0-47.0) H 07/28/24 12:05 MCV 95.3 fL (80.0-100.0) 07/28/24 12:05 MCH 31.3 pg (25.0-34.0) 07/28/24 12:05 MCHC 32.8 g/dL (32.0-36.0) 07/28/24 12:05 RDW Std Deviation 47.4 fL (36.4-46.3) H 07/28/24 12:05 RDW Coeff of Keisha 13.3 % (11.5-14.5) 07/28/24 12:05 Plt Count 265 K/uL (130-400) 07/28/24 12:05 MPV 9.9 fL (9.4-12.4) 07/28/24 12:05 Immature Gran % (Auto) 0.3 % 07/28/24 12:05 Neut % (Auto) 77.6 % 07/28/24 12:05 Lymph % (Auto) 12.5 % 07/28/24 12:05 [place] % (Auto) 7.7 % 07/28/24 12:05 Eos % (Auto) 1.1 % 07/28/24 12:05 Baso % (Auto) 0.8 % 07/28/24 12:05 Neut # (Auto) 6.12 K/uL (1.40-6.50) 07/28/24 12:05 Lymph # (Auto) 0.99 K/uL (1.20-3.40) L 07/28/24 12:05 [place] # (Auto) 0.61 K/uL (0.11-0.59) H 07/28/24 12:05 Eos # (Auto) 0.09 K/uL (0.00-0.50) 07/28/24 12:05 Baso # (Auto) 0.06 K/uL (0.00-0.20) 07/28/24 12:05 Immature Gran # (Auto) 0.02 K/uL (0.01-0.20) 07/28/24 12:05 Sodium 141 mmol/L (136-145) 07/28/24 12:05 Potassium 4.0 mmol/L (3.5-5.1) 07/28/24 12:05 Chloride 105 mmol/L (98-107) 07/28/24 12:05 Carbon Dioxide 29 mmol/L (21-32) 07/28/24 12:05 Anion Gap 7 (3-11) 07/28/24 12:05 BUN 19 mg/dl (6-23) 07/28/24 12:05 Creatinine 0.80 mg/dl (0.6-1.2) 07/28/24 12:05 Est Cr Clr Drug Dosing 43.3 ml/min 07/28/24 12:05 eGFR 72.61 07/28/24 12:05 BUN/Creatinine Ratio 23.8 (10-20) H 07/28/24 12:05 Glucose 93 mg/dl (70-99(Fasting)) 07/28/24 12:05 Calcium 9.8 mg/dl (8.6-10.3) 07/28/24 12:05 Magnesium 2.2 mg/dl (1.7-2.4) 07/28/24 12:05 Total Bilirubin 1.4 mg/dl (0.2-1.0) H 07/28/24 12:05 AST 26 U/L (13-39) 07/28/24 12:05 ALT 22 U/L (7-52) 07/28/24 12:05 Alkaline Phosphatase 126 U/L (34-104) H 07/28/24 12:05 Troponin I High Sens 9.4 pg/ml (0-14) 07/28/24 12:05 Total Protein 8.5 gm/dl (6.0-8.3) H 07/28/24 12:05 Albumin 4.2 gm/dl (3.4-5.0) 07/28/24 12:05 Globulin 4.3 gm/dl (2.5-4.0) H 07/28/24 12:05 Albumin/Globulin Ratio 1.0 (0.9-2) 07/28/24 12:05 TSH 2.131 uIu/ml (0.300-4.500) 07/28/24 12:05 Impressions Chest X-Ray 07/28/24 11:58 XR chest 1V portable CLINICAL HISTORY: Dysrhythmia COMPARISON STUDY: 11/23/2023. FINDINGS: Heart size and pulmonary vasculature are normal. Stable hyperexpanded lungs. No consolidation, pleural effusion, or pneumothorax. IMPRESSION: No acute findings. ACT 112: Negative or not required by law. Electronically signed by: Héctor Loera M.D. 07/28/2024 12:15 PM Supervising Physician Co-Signing Physician Notes 83-year-old lady with PMH of HTN, aortic stenosis, [place], supraventricular tachycardia, breast and colon cancer in remission presents to the ED at referral of cardiology office due to note of third-degree heart block in EKG. Patient reports she has been having shortness of breath with exertion associated with lightheadedness and sensation of potential syncope [has not lost consciousness per patient] since October which has been worsening since last few weeks. Patient reports her symptoms improves with rest. Patient also reports she has tachycardia with activity and in the morning. Patient denies fever/flu/fall. Patient denies nausea/vomiting, reports appetite has been poor at baseline. Patient denies diarrhea/pain or burning with passing urine/belly pain/chest pain. Patient denies smoking tobacco/use of alcohol. Labs and imagings reviewed: CBC WNL, electrolytes including potassium and magnesium/renal function WNL. T. bili and ALP slightly elevated, repeat LFT in AM. TSH WNL. Lyme screen pending. CXR with no acute finding. EKG with heart rate 38, Marked sinus bradycardia, A-V dissociation. QTc 422. Active problems: Complete heart block: Monitor replace electrolytes, keep K greater than 4.0 and magnesium greater than 2.0. Transcutaneous pacer pads in place, atropine as needed, patient to be monitored in ICU. Patient currently hemodynamically stable. Monitor for chest pain/hypotension/shortness of breath/confusion. ECHO. Cardio consult, plan for pacer placement. NPO midnight. Hypertensive urgency: BP 223/129 at presentation. Likely in the setting of CHB. Avoid AV tc blocking blood pressure medications, continue with IV hydralazine 10 Mg as needed every 4 hours for SBP greater than 175 or DBP greater than 90 mmHg. Blood pressure getting better by the time of bedside examination. Continue home losartan and Lasix with hold parameters [hold BP meds for SBP less than 110 mmHg]. On exam: GENERAL: Alert and oriented x3. NAD, on RA. HEENT: No pallor, no icterus. Pupils equal, round and reactive to light. Oral mucosa moist. NECK: No JVD, no neck masses. Entrance cutaneous pacer pads in place. HEART: S1 and S2 heard. Regular rate and rhythm. No murmur, no gallop. RESPIRATORY SYSTEM: Normal AP diameter. No accessory muscle use. No wheezing, no crackles. ABDOMEN: Soft, bowel sounds present, nontender, no distention. CENTRAL NERVOUS SYSTEM: No facial droop. Speech is clear. Obeys simple commands. Moves extremities. EXTREMITIES: No edema, no erythema seen. I have seen and examined the patient and have discussed the case with the provider above. I agree with the assessment and plan as stated. Time spent independently: 35 minutes (4) Aortic stenosis Cardiac valve disease etiology: nonrheumatic Qualified Code(s): I35.0 - Nonrheumatic aortic (valve) stenosis
[2024-07-28] MEDS ORDERED: hydrALAZINE HCL 20 MG/ML VIAL IV PRN (14:28)
--- NOTE | 2024-07-28 14:30 | Cardiology Consultation ---
Date of Consultation July 28, 2024 Assessment & Plan (1) Third degree heart block: (2) Aortic stenosis: (3) Hypertensive urgency: Plan Patient admitted to [facility] with 3rd degree AV block with associated fatigue, weakness, and exertional dyspnea x 3-4 weeks. Mild exertional dizziness reported. No syncope or true loss of consciousness. Labs unrevealing of reversible causes thus far - normal kidney funciton, electrolytes. normal thyroid. Lyme results pending Hold metoprolol 50 mg (last dose was this morning) Pacer pads in place as a precaution Plan for dual chamber pacemaker tomorrow AM. NPO at midnight No indication for urgent temporary pacemaker at this time. Hypertensive urgency noted on arrival -treated with one dose IV hydralazine -strong situational component -BP improved at time of evaluation in the 120/60's -Would avoid hypotension. Would avoid repeat IV hydralazine -Resume oral losartan 50 mg daily and titrate as needed -Hold metoprolol until after pacemaker. history of mild/moderate -update echo to reassess LVEF and valvular heart disease Case discussed with Dr. Mukherjee I spent a total of 60 minutes on the date of service in preparation, delivery, and documentation of the care provided to this patient, excluding any time spent in the performance of separately billed services. Stephany Liao PA-C Department of Cardiology, [facility] This chart was completed in part utilizing Speech Voice Recognition Software. Grammatical errors, random word insertions, pronoun errors, and incomplete sentences are an occasional consequence of this system due to software limitations, ambient noise, and hardware issues. Any formal questions or concerns about the content, text, or information contained within the body of this dictation should be directly addressed to the provider for clarification. Supervising Physician Co-Signing Physician Notes I have personally performed a history and physical examination on the patient. I have reviewed the advance practitioner's documentation, and I agree with, and take responsibility for the plan of care. 83-year-old female presented to outpatient cardiology clinic today due to shortness of breath, palpitations, decreased functional capacity with exercise intolerance. ECG demonstrating 33 AV block with a ventricular rate of 38 to 40 bpm. QRS complexes are narrow. She denies lightheadedness, dizziness, syncope, or near syncope. Essentially asymptomatic at rest. Markedly hypertension hypertensive on presentation although blood pressure has improved. She did take a.m. dose of Toprol-XL 50 mg daily. She is chronically treated with beta- miriam due to history of supraventricular tachycardia and palpitations. Recommendations: * Dual-chamber pacemaker implantation 07/29/24 * Admit to intensive care unit * Transcutaneous pacer pads placed * Lyme screen pending * N.p.o. except medications after midnight * Hold all AV tc blocking agents with plans to restart metoprolol post pacemaker implantation * Resume losartan 50 mg daily * Update echocardiogram for reassessment of LV function and mild to moderate aortic valve stenosis I spent a total of 40 minutes on the date of service in preparation, delivery, and documentation of the care provided to this patient, excluding any time spent in the performance of separately billed services. Cody Mukherjee DO, [facility] History of Present Illness Reason for Consultation: 3rd degree AV block Requesting Physician: Leobardo Burger Attending Physician: Dr. Mukherjee History of Present Illness Patient is a 83 year old female who was sent to the ER from the cardiology outpatient office due to findings of 3rd degree AV block on EKG. Over the past three to four weeks, she has experienced worsening shortness of breath, particularly noticeable when walking up a flight of stairs. This exertional dyspnea is accompanied by lightheadedness and a sensation of potential syncope, although she has not actually fainted. She needs to sit down after climbing stairs due to heavy breathing and lightheadedness. She has a history of supraventricular tachycardia and was evaluated in October, undergoing an echocardiogram and a nuclear stress test. Her symptoms have worsened compared to six months ago, with increased shortness of breath and a sensation of rapid heartbeat. She experiences tachycardia every morning upon waking and can feel and see her heart beating rapidly. This morning, she felt a fast heartbeat and shortness of breath after walking from the parking lot to the clinic. Her current medications include losartan 50 mg taken in the morning and evening, and metoprolol succinate 50 mg daily, which was adjusted from atenolol due to previous episodes of supraventricular tachycardia. She also takes a low dose of furosemide, which was added in January 2024 for shortness of breath related to diastolic dysfunction. No recent illness with fever, tick bites, or significant alcohol consumption. She has a history of cataracts but no recent changes in vision or headaches. She has never been a smoker and has minimal alcohol consumption history. She does recall being [place] in [place] and having 2-3 "bug bites" on her legs, but this resolved quickly. At time of evaluation in ER, patient tearful and full of anxiety. She notes headache and neck pain. No vision changes. BP is trending downward with IV hydralazine. Now 120/60's. She denies dizziness or lightheadedness. Notes fatigue and dyspnea with exertion. No LOC/syncope. No chest pain. History includes: 1. symptomatic SVT/tachypalpitations - controlled on metoprolol (previously on atenolol) 2. Hypertension 3. Dyslipidemia 4. Mild to moderate Allergies Allergy/AdvReac Type Severity Reaction Status Date / Time Sulfa (Sulfonamide Allergy Vomiting Verified 11/23/23 06:04 Antibiotics) Home Medications Medication Instructions Recorded Confirmed Type ascorbic acid (vitamin C) 1,000 mg 1,000 mg PO DAILY ##0 11/23/23 07/28/24 History tablet (Vitamin C) aspirin 81 mg tablet,delayed 81 mg PO DAILY ##0 11/23/23 07/28/24 History release calcium 600 mg (as 1 tab PO DAILY ##0 11/23/23 07/28/24 History carbonate)-vitamin D3 10 mcg (400 unit) tablet (Calcium 600 + D(3)) fluticasone propionate 50 2 spray intranasal DAILY ##0 11/23/23 07/28/24 History mcg/actuation nasal spray,suspension losartan 100 mg tablet 50 mg PO BID 11/23/23 07/28/24 History sertraline 50 mg tablet 50 mg PO DAILY 11/23/23 07/28/24 History zinc acetate 25 mg (zinc) capsule 25 mg PO DAILY ##0 11/23/23 07/28/24 History furosemide 20 mg tablet 20 mg PO QAM 07/28/24 07/28/24 History metoprolol succinate 50 mg 50 mg PO DAILY 07/28/24 07/28/24 History tablet,extended release 24 hr rosuvastatin 10 mg tablet 10 mg PO DAILY 07/28/24 07/28/24 History Patient History Medical History (Updated 07/28/24 @ 14:44 by Stepahny Liao PA-C) Acute hypoxemic respiratory failure Acute UTI (urinary tract infection) Social History (System 07/31/18 @ 13:55 by Kari Rodgers) Smoking Status: Never smoker Hx Alcohol Use: No Hx Substance Use: No Preferred Language: Ethiopian Communication Ability: Effective Camp Attendant Required: No Beliefs That Will Affect Care: None Current Living Situation: Significant Other Feels Safe at Home: Yes Assistive Devices: None Review of Systems Review of Systems: All systems reviewed & are unremarkable except as noted in HPI & below Physical Exam Constitutional: + thin; no acute distress Neck: normal visual inspection Respiratory: no respiratory distress and no cough Auscultation: lungs clear to auscultation bilaterally Cardiovascular: Rate/Rhythm: + bradycardic Heart Sounds: + murmur (II/ systolic murmur LSB) Vessels: + JVD Extremities: no edema Gastrointestinal (Abdomen): normal bowel sounds, soft, nontender, no hepatosplenomegaly Neurologic: PERRL, EOMI, accommodation nl, no face palsy, no dysarthria Results & Data Vital Signs (Past 12 Hours) Vital Signs Temp Pulse Resp BP Pulse Ox O2 Del Method 07/28/24 12:30 196/71 H 07/28/24 12:06 38 L 19 205/76 H 98 Room Air 07/28/24 12:02 39 L 07/28/24 11:54 36.7 C 89 18 223/129 H 94 Room Air Laboratory Results Cardiac Enzymes 07/28/24 Range/Units 12:05 AST 26 (13-39) U/L Troponin I High Sens 9.4 (0-14) pg/ml CBC 07/28/24 Range/Units 12:05 WBC 7.89 (4.8-10.8) K/ul RBC 5.12 (4.20-5.40) M/uL Hgb 16.0 (12.0-16.0) g/dl Hct 48.8 H (37.0-47.0) % Plt Count 265 (130-400) K/uL Neut # (Auto) 6.12 (1.40-6.50) K/uL Lymph # (Auto) 0.99 L (1.20-3.40) K/uL [place] # (Auto) 0.61 H (0.11-0.59) K/uL Eos # (Auto) 0.09 (0.00-0.50) K/uL Baso # (Auto) 0.06 (0.00-0.20) K/uL Comprehensive Metabolic Panel 07/28/24 Range/Units 12:05 Sodium 141 (136-145) mmol/L Potassium 4.0 (3.5-5.1) mmol/L Chloride 105 (98-107) mmol/L Carbon Dioxide 29 (21-32) mmol/L BUN 19 (6-23) mg/dl Creatinine 0.80 (0.6-1.2) mg/dl Glucose 93 (70-99(Fasting)) mg/dl Calcium 9.8 (8.6-10.3) mg/dl AST 26 (13-39) U/L ALT 22 (7-52) U/L Alkaline Phosphatase 126 H (34-104) U/L Total Protein 8.5 H (6.0-8.3) gm/dl Albumin 4.2 (3.4-5.0) gm/dl Intake and Output 07/27/24 07/28/24 07/28/24 22:59 06:59 14:59 Other: Weight 62.3 kg Weight Measurement Method Built in [facility] Patient Weight 07/29/24 06:59 Weight 62.3 kg Diagnostic Findings Telemetry reviewed: 3rd degree heart block - ventricular rate in the 40's EKG reviewed: 3rd degree AV block with AV dissociation non specific ST/T wave abnormality Prior data reviewed: echo report reviewed dated 10/29/23: LV systolic function is normal. LVEF at 55-60% Mild concentric LVH RV is normal in size and function Mild to moderate Mild AI Mild MR RV systolic pressure is elevated at 30-40 mmHG ZIO reviewed from Dec 2023: CONCLUSIONS: Preliminary Findings Prepared by Tate Hollis, JATIN 12/26/23 Patient had a min HR of 48 bpm, max HR of 171 bpm, and avg HR of 64 bpm. Predominant underlying rhythm was Sinus Rhythm. 88 Supraventricular Tachycardia runs occurred, the run with the fastest interval lasting 4 beats with a max rate of 171 bpm, the longest lasting 18 beats with an avg rate of 111 bpm. Supraventricular Tachycardia was detected within +/- 45 seconds of symptomatic patient event(s). Isolated SVEs were occasional (2.7%, 00009), SVE Couplets were rare (<1.0%, 1149), and SVE Triplets were rare (<1.0%, 357). Isolated VEs were rare (<1.0%), VE Couplets were rare (<1.0%), and no VE Triplets were present. Symptoms correlate with supraventricular ectopy, sinus rhythm, and supraventricular tachycardia. Summary of pharmacologic nuclear stress test performed 11/25/2023, [place], interpreted by Dr Mukherjee: Normal Lexiscan myocardial perfusion imaging study without evidence of ischemia or scar Normal gated wall motion, LVEF > 70% The resting blood pressure at the time of the study was 166/94 with maximum blood pressure of 181/92 Medications Administered Medications ascorbic acid (vitamin C) 1,000 mg tablet (Vitamin C) 1,000 mg PO DAILY ##0 11/23/23 [History Confirmed 07/28/24] aspirin 81 mg tablet,delayed release 81 mg PO DAILY ##0 11/23/23 [History Confirmed 07/28/24] calcium 600 mg (as carbonate)-vitamin D3 10 mcg (400 unit) tablet (Calcium 600 + D(3)) 1 tab PO DAILY ##0 11/23/23 [History Confirmed 07/28/24] fluticasone propionate 50 mcg/actuation nasal spray,suspension 2 spray intranasal DAILY ##0 11/23/23 [History Confirmed 07/28/24] losartan 100 mg tablet 50 mg PO BID 11/23/23 [History Confirmed 07/28/24] sertraline 50 mg tablet 50 mg PO DAILY 11/23/23 [History Confirmed 07/28/24] zinc acetate 25 mg (zinc) capsule 25 mg PO DAILY ##0 11/23/23 [History Confirmed 07/28/24] furosemide 20 mg tablet 20 mg PO QAM 07/28/24 [History Confirmed 07/28/24] metoprolol succinate 50 mg tablet,extended release 24 hr 50 mg PO DAILY 07/28/24 [History Confirmed 07/28/24] rosuvastatin 10 mg tablet 10 mg PO DAILY 07/28/24 [History Confirmed 07/28/24] (2) Aortic stenosis Cardiac valve disease etiology: nonrheumatic Qualified Code(s): I35.0 - Nonrheumatic aortic (valve) stenosis
--- NOTE | 2024-07-28 15:16 | Electrocardiogram Report ---
Test Reason : Blood Pressure : */* mmHG Vent. Rate : 38 BPM Atrial Rate : 39 BPM P-R Int : * ms QRS Dur : 72 ms QT Int : 532 ms P-R-T Axes : * -51 -3 degrees QTcB Int : 422 ms Sinus bradycardia with A-V dissociation and junctional escape rhythm Left axis deviation Anterior infarct , age undetermined Abnormal ECG When compared with ECG of 23-Nov-2023 04:37, Significant changes have occurred Confirmed by Chico Beaver ([id number]) on 07/28/2024 3:16:01 PM Referred By: REFERRED SELF Confirmed By: Chico Beaver
--- NOTE | 2024-07-28 15:47 | Critical Care Consultation ---
Date of Consultation July 28, 2024 Assessment & Plan (1) Third degree heart block: (2) Hypertension: (3) Aortic stenosis: Plan Impression: 83-year-old female admitted with third-degree heart block. She is symptomatic but hemodynamically stable at this point in time. Plan is n.p.o. after midnight for permanent pacemaker in a.m. Recommendations: 1. Third-degree heart block: Continue to hold AV tc blocking medications. N.p.o. for potential permanent pacemaker. If she deteriorates, will need to address for temporary transvenous pacer or transcutaneous pacing. 2. Hypertension: Continue ARB. Will use hydralazine on an as-needed basis if needed. 3. Patient's other medical issues been addressed by the primary admitting service. Will follow in the ICU pending placement of the permanent pacemaker which point in time the patient is eligible to transfer out of the ICU and to the telemetry floor. The above recommendations and plan were discussed with the patient. Questions were answered to the best my ability. She expressed understanding and is in agreement with the plan as outlined History of Present Illness History of Present Illness Asked by hospitalist and front desk clerk to assist in evaluation and management this patient admitted with third-degree heart block. History is obtained from discussion with the patient as well as review of electronic medical record. Patient is an 83-year-old female who was seen in cardiology clinic with exertional dyspnea and presyncope. She is on a beta-miriam in the outpatient setting. She has a history of SVT. She was found to be in third-degree heart block with a ventricular escape rate in the 40s in the cardiology clinic and was sent to the emergency room. Pacer pads were placed. She is seen in consultation by cardiology and is n.p.o. for dual-chamber pacemaker in the a.m.. Allergies Allergy/AdvReac Type Severity Reaction Status Date / Time Sulfa (Sulfonamide Allergy Vomiting Verified 11/23/23 06:04 Antibiotics) Home Medications Medication Instructions Recorded Confirmed Type ascorbic acid (vitamin C) 1,000 mg 1,000 mg PO DAILY ##0 11/23/23 07/28/24 History tablet (Vitamin C) aspirin 81 mg tablet,delayed 81 mg PO DAILY ##0 11/23/23 07/28/24 History release calcium 600 mg (as 1 tab PO DAILY ##0 11/23/23 07/28/24 History carbonate)-vitamin D3 10 mcg (400 unit) tablet (Calcium 600 + D(3)) fluticasone propionate 50 2 spray intranasal DAILY ##0 11/23/23 07/28/24 History mcg/actuation nasal spray,suspension losartan 100 mg tablet 50 mg PO BID 11/23/23 07/28/24 History sertraline 50 mg tablet 50 mg PO DAILY 11/23/23 07/28/24 History zinc acetate 25 mg (zinc) capsule 25 mg PO DAILY ##0 11/23/23 07/28/24 History furosemide 20 mg tablet 20 mg PO QAM 07/28/24 07/28/24 History metoprolol succinate 50 mg 50 mg PO DAILY 07/28/24 07/28/24 History tablet,extended release 24 hr rosuvastatin 10 mg tablet 10 mg PO DAILY 07/28/24 07/28/24 History Patient History Medical History (Updated 07/28/24 @ 14:44 by Stephany Liao PA-C) Acute hypoxemic respiratory failure Acute UTI (urinary tract infection) Social History (System 07/31/18 @ 13:55 by Kari Rodgers) Smoking Status: Never smoker Hx Alcohol Use: No Hx Substance Use: No Preferred Language: Maori Communication Ability: Effective 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 No additions or deletions Physical Exam Constitutional: WD/WN, vitals as above Neck: trachea midline, no thyromegaly Respiratory: normal respiratory effort, lungs clear to auscultation Cardiovascular: Rate/Rhythm: + bradycardic Heart Sounds: normal S1, normal S2 and + murmur Extremities: no edema Gastrointestinal (Abdomen): normal bowel sounds, soft, nontender, no hepatosplenomegaly Musculoskeletal: Extremities: extremities normal to inspection Skin: no rashes, warm and dry Neurologic: Nonfocal exam Lymphatic: no cervical lymphadenopathy Results & Data Results & Data Vital Signs (Past 12 Hours) Vital Signs Temp Pulse Resp BP Pulse Ox O2 Del Method 07/28/24 15:27 42 L 22 95 07/28/24 15:12 39 L 19 94 07/28/24 15:01 141/63 H 07/28/24 14:31 134/51 L 07/28/24 14:18 41 L 14 97 Room Air 07/28/24 14:01 125/46 L 07/28/24 14:00 40 L 20 98 Room Air 07/28/24 13:33 50 L 22 98 Room Air 07/28/24 13:31 162/57 H 07/28/24 13:18 39 L 14 97 Room Air 07/28/24 13:06 39 L 20 97 Room Air 07/28/24 13:01 168/62 H 07/28/24 12:51 41 L 25 H 99 Room Air 07/28/24 12:36 39 L 15 97 Room Air 07/28/24 12:30 196/71 H 07/28/24 12:30 196/71 H 07/28/24 12:06 38 L 19 205/76 H 98 Room Air 07/28/24 12:02 39 L 07/28/24 11:54 36.7 C 89 18 223/129 H 94 Room Air Critical Care Results & Data Vital Signs (Past 12 Hours) Vital Signs Temp Pulse Resp BP Pulse Ox O2 Del Method 07/28/24 15:27 42 L 22 95 07/28/24 15:12 39 L 19 94 07/28/24 15:01 141/63 H 07/28/24 14:31 134/51 L 07/28/24 14:18 41 L 14 97 Room Air 07/28/24 14:01 125/46 L 07/28/24 14:00 40 L 20 98 Room Air 07/28/24 13:33 50 L 22 98 Room Air 07/28/24 13:31 162/57 H 07/28/24 13:18 39 L 14 97 Room Air 07/28/24 13:06 39 L 20 97 Room Air 07/28/24 13:01 168/62 H 07/28/24 12:51 41 L 25 H 99 Room Air 07/28/24 12:36 39 L 15 97 Room Air 07/28/24 12:30 196/71 H 07/28/24 12:30 196/71 H 07/28/24 12:06 38 L 19 205/76 H 98 Room Air 07/28/24 12:02 39 L 07/28/24 11:54 36.7 C 89 18 223/129 H 94 Room Air Lab & Micro Results (Past 24 Hours) RBC 5.12 M/uL (4.20-5.40) 07/28/24 WBC 7.89 K/ul (4.8-10.8) 07/28/24 Hgb 16.0 g/dl (12.0-16.0) 07/28/24 Hct 48.8 % (37.0-47.0) H 07/28/24 MCV 95.3 fL (80.0-100.0) 07/28/24 MCH 31.3 pg (25.0-34.0) 07/28/24 MCHC 32.8 g/dL (32.0-36.0) 07/28/24 RDW Standard Deviation 47.4 fL (36.4-46.3) H 07/28/24 RDW Coefficient of Variation 13.3 % (11.5-14.5) 07/28/24 Plt Count 265 K/uL (130-400) 07/28/24 MPV 9.9 fL (9.4-12.4) 07/28/24 Neutrophils (%) (Auto) 77.6 % 07/28/24 Lymphocytes (%) (Auto) 12.5 % 07/28/24 Monocytes # (Auto) 0.61 K/uL (0.11-0.59) H 07/28/24 Eosinophils # (Auto) 0.09 K/uL (0.00-0.50) 07/28/24 Immature Granulocyte % (Auto) 0.3 % 07/28/24 Neutrophils # (Auto) 6.12 K/uL (1.40-6.50) 07/28/24 Lymphocytes # (Auto) 0.99 K/uL (1.20-3.40) L 07/28/24 Monocytes # (Auto) 0.61 K/uL (0.11-0.59) H 07/28/24 Eosinophils # (Auto) 0.09 K/uL (0.00-0.50) 07/28/24 Basophils # (Auto) 0.06 K/uL (0.00-0.20) 07/28/24 Immature Granulocyte # (Auto) 0.02 K/uL (0.01-0.20) 5 Na 141 mmol/L (136-145) 07/28/24 K 4.0 mmol/L (3.5-5.1) 07/28/24 Cl 105 mmol/L (98-107) 07/28/24 CO2 29 mmol/L (21-32) 07/28/24 Anion Gap 7 (3-11) 07/28/24 BUN 19 mg/dl (6-23) 07/28/24 Creatinine 0.80 mg/dl (0.6-1.2) 07/28/24 BUN/Creatinine Ratio 23.8 (10-20) H 07/28/24 Glu 93 mg/dl (70-99(Fasting)) 07/28/24 Ca 9.8 mg/dl (8.6-10.3) 07/28/24 Total Bilirubin 1.4 mg/dl (0.2-1.0) H 07/28/24 AST 26 U/L (13-39) 07/28/24 ALT 22 U/L (7-52) 07/28/24 Alkaline Phosphatase 126 U/L (34-104) H 07/28/24 TP 8.5 gm/dl (6.0-8.3) H 07/28/24 Albumin 4.2 gm/dl (3.4-5.0) 07/28/24 Globulin 4.3 gm/dl (2.5-4.0) H 07/28/24 Albumin/Globulin Ratio 1.0 (0.9-2) 07/28/24 Mg 2.2 mg/dl (1.7-2.4) 07/28/24 12:05 Calcium Level 9.8 mg/dl (8.6-10.3) 07/28/24 12:05 Diagnostic Findings (Past 24 Hours) Chest X-Ray 07/28/24 11:58 XR chest 1V portable CLINICAL HISTORY: Dysrhythmia COMPARISON STUDY: 11/23/2023. FINDINGS: Heart size and pulmonary vasculature are normal. Stable hyperexpanded lungs. No consolidation, pleural effusion, or pneumothorax. IMPRESSION: No acute findings. ACT 112: Negative or not required by law. Electronically signed by: Héctor Loera M.D. 07/28/2024 12:15 PM RT Ventilator Mngmt (Last Documented) Ventilator Ordered Settings Respiratory Rate 22 07/28/24 15:27 Ventilator - PT Measurements Respiratory Rate 22 Coding Level of Care Code 13960 IN/OBS CONSULT LVL 3,45M Diagnoses Third degree heart block I44.2 Hypertension I10 Hypertension type: primary hypertension Nonrheumatic aortic valve stenosis I35.0 Cardiac valve disease etiology: nonrheumatic (2) Hypertension Hypertension type: primary hypertension Qualified Code(s): I10 - Essential (primary) hypertension (3) Aortic stenosis Cardiac valve disease etiology: nonrheumatic Qualified Code(s): I35.0 - Nonrheumatic aortic (valve) stenosis
[2024-07-28] MEDS: ICU Protocol for HYPERglycemia SCH (16:15)
--- OUTSIDE RECORDS SUMMARY | 2024-07-28 18:17 | External Medical Summary | Summary of Care ---
Author Name Unknown Organization [facility] Address [address] [place] [address] Phone [phone] Care Team Providers Care Rug Drying Machine Operator Name Role Phone Stevie Mcclain DO Primary Care Provider + Reason for Visit * Reason Onset Date Comments Med Request 05/11/2024 Encounter Details Date Type Department Care Team (Late st Contact Info) Description 05/11/2024 Telephone [facility] [address] [place], [place] [phone] Matthew Singh DO [address] [place] [address] Med Request Allergies Active Allergy Reactions Criticality Noted Date Comments Chlorthalidone Other (Please comment) Low 4 Headache Codeine Unknown Medium 12/17/2023 Cephalexin Unknown Medium 12/17/2023 Nitrofurantoin Unknown Medium 12/17/2023 Sulfa Antibiotics Unknown Medium 12/17/2023 Sulfamethoxazole Unknown Medium 12/17/2023 documented as of this encounter (statuses as of 05/12/2024) Medications Atorvastatin Calcium 10 MG Oral Tablet (Lipitor) Take 1 Tablet by mouth in the morning. 4 Active Ipratropium [place] 0.03 % Nasal Solution (Atrovent) Administer 2 Sprays into nostril at bedtime. 4 Active LORazepam 0.5 MG Oral Tablet (Ativan) Take 1 Tablet by mouth as needed for Anxiety. 4 Active Losartan Potassium 100 MG Oral Tablet (Cozaar) Take 0.5 Tablets by mouth in the morning and 0.5 Tablets before bedtime. 4 Active Sertraline HCl 50 MG Oral Tablet (Zoloft) Take 1 Tablet by mouth in the morning. 4 Active Aspirin 81 MG Oral Tablet Delayed Release (Aspirin 81) Take 1 Tablet by mouth in the morning. Active Vitamin C 500 MG Oral Capsule Take 1,000 mg by mouth in the morning. Active Calcium Carbonate-Vitam in D 500-5 MG-MCG Oral Tablet Take 1 Tablet by mouth in the morning. Active Fluticasone Propionate 50 MCG/ACT Nasal Suspension (Flonase) Administer 2 Sprays into nostril in the morning. Active Zafirlukast 20 MG Oral Tablet (Accolate) Take 1 Tablet by mouth in the morning and 1 Tablet before bedtime. With meals. Active Chelated Zinc 50 MG Oral Tablet Take 50 mg by mouth in the morning. Active [employer] Gummy 50-45-3.8 MG Oral Tablet Chewable (Elderberry-Vit paul C-Zinc) Take by mouth. Ac tive Furosemide 20 MG Oral Tablet (Lasix) Take 1 Tablet by mouth in the morning. 90 Tablet 3 4 Active Metoprolol Succinate ER 50 MG Oral Tablet Extended Release 24 Hour (Toprol XL) One tablet by mouth daily 90 Tablet 3 4 Active Metoprolol Succinate ER 25 MG Oral Tablet Extended Release 24 Hour (Toprol XL) One half tablet by mouth daily in the evening. In addition to 50 mg daily in the morning 45 Tablet 3 4 Active documented as of this encounter (statuses as of 05/12/2024) Active Problems No known active problems documented as of this encounter (statuses as of 05/12/2024) Immunizations Name Administration Dates Next Due Seasonal Influenza, High Dos e, Trivalent, PF, IM (Fluzone HD) 12/17/2023 documented as of this encounter Social History Tobacco Use Types Packs/Day Years Used Date Smoking Tobacco: Never Assessed Comments Unknown Sex and Gender Information Value Date Recorded Sex Assigned at Not on file Legal Sex Female 5:18 AM EST Gender Identity Not on file Sexual Orientation Not on file documented as of this encounter Miscellaneous Notes * Telephone Encounter - Jeannette Kiran PA-C - 05/12/2024 12:52 PM EST Spoke with patient. (See other encounter from 05/04 regarding this.) * Telephone Encounter - Shonna Oakley PHARM Tech - 05/12/2024 11:39 AM EST Patient returning call. Transferred her to office. Thank you, Shonan Oakley Industrial Arts Teacher I [facility] 05/12/2024,11:39 AM * Telephone Encounter - Maricruz Chen CPhT - 05/11/2024 1:29 PM EST Incoming call from patient requesting new prescriptions for post op eyedrops and ointment to be sent to [id number]. Please reach out to caller at [phone] to advise how longpatient is to remain on medication and send new prescriptions if appropriate. Thank you, Maricruz Chen CPhT Industrial Arts Teacher II [facility] 05/11/2024,1:32 PM documented in this encounter Plan of Treatment Upcoming Encounters Date Type Department Care Team (Late st Contact Info) Description 05/15/2024 2:30 PM EST Telemedicine [facility] [address] [place] [address] Matthew Singh DO [address] [place] [address] 10/08/2024 9:30 AM EDT [facility] [address] [facility] [place] [id number] 11/03/2024 10:00 AM EDT Office Visit Cardiology, [facility] [address] [place] [address] Abrahan Carpio PA-C [address] [place] [address] Health Maintenance Due Date Last Done Comments Depression Screening 1952 DTap/Tdap Vaccines (1 - Tdap) 07/30/1958 Zoster Vaccines (1 of 2) 07/30/1989 COVID-19 Vaccine (4 - season) 2023 03/06/2021, 05/18/2020, 04/27/2020 DXA Scan 12/25/2027 12/24/2017, 12/24/2017 Pneumococcal Vaccine: 50+ Years Completed 01/10/2015, 06/06/2006 Influenza Vaccine (FLU shot) Completed 01/2024, 02/21/2023, 02/19/2022, Additional history exists HPV (Gardasil) Vaccine Aged Out No lo nger eligible based on patient's age to complete this topic Hepatitis B Vaccine Aged Out No longe r eligible based on patient's age to complete this topic MENINGOCOCCAL (MENACTRA/MENVEO) Aged Out No longer eligible based on patient's age to complete this topic documented as of this encounter Medical Devices Not on filedocumented as of this encounter Care Teams Rug Drying Machine Operator Relationship Specialty Start Date End Date Stevie Mcclain DO PCP - General Family Medicine 10/31/23 documented as of this encounter
--- OUTSIDE RECORDS SUMMARY | 2024-07-28 18:17 | External Medical Summary | Summary of Care ---
Author Name Unknown Organization [facility] Address [address] [place] [address] Phone [phone] Care Team Providers Care Textile Artist Name Role Phone Stevie Mcclain DO Primary Care Provider + Reason for Visit * Reason Onset Date Comments Information 07/20/2024 Med Request 07/20/2024 Linda Encounter Details Date Type Department Care Team (Late st Contact Info) Description 07/20/2024 Telephone Cardiology, [facility] [address] [place] [phone] Blue Mckeon DO [address] [place] [address] Information; Med Request (Linda) Allergies Active Allergy Reactions Criticality Noted Date Comments Chlorthalidone Other (Please comment) Low 4 Headache Codeine Unknown Medium 12/17/2023 Cephalexin Unknown Medium 12/17/2023 Nitrofurantoin Unknown Medium 12/17/2023 Sulfa Antibiotics Unknown Medium 12/17/2023 Sulfamethoxazole Unknown Medium 12/17/2023 documented as of this encounter (statuses as of 07/27/2024) Medications Ipratropium [place] 0.03 % Nasal Solution (Atrovent) Administer 2 Sprays into nostril at bedtime. 4 Active LORazepam 0.5 MG Oral Tablet (Ativan) Take 1 Tablet by mouth as needed for Anxiety. 4 Active Sertraline HCl 50 MG Oral Tablet (Zoloft) Take 1 Tablet by mouth in the morning. 4 Active Aspirin 81 MG Oral Tablet Delayed Release (Aspirin 81) Take 1 Tablet by mouth in the morning. Active Vitamin C 500 MG Oral Capsule Take 1,000 mg by mouth in the morning. Active Calcium Carbonate-Jael min D 500-5 MG-MCG Oral Tablet Take 1 [...] mg by mouth in the morning. Active [employer] Gummy 50-45-3.8 MG Oral Tablet Chewable (Elderberry-Vi tamin C-Zinc) Take by mouth. A ctive Furosemide 20 MG Oral Tablet (Lasix) Take 1 Tablet by mouth in the morning. 90 Tablet 3 4 Active Metoprolol Succinate ER 50 MG Oral Tablet Extended Release 24 Hour (Toprol XL) One tablet by mouth daily 90 Tablet 3 4 Active Tobramycin-dex AMETHasone 0.3-0.1 % Ophthalmic Suspension Instill 1 Drop into the left eye in the morning and 1 Drop at noon and 1 Drop before bedtime. Shake bottle gently before each use. 5 mL 5 Active Losartan Potassium 100 MG Oral Tablet (Cozaar) Take 0.5 Tablets by mouth in the morning and 0.5 Tablets before bedtime. 90 Tablet 3 5 Active Rosuvastatin Calcium 10 MG Oral Tablet (Crestor) Take 1 Tablet by mouth in the morning. Active Atorvastatin Calcium 10 MG Oral Tablet (Lipitor) Take 1 Tablet by mouth in the morning. 4 07/28/19 25 Discontinu ed(Adverse reaction) Losartan Potassium 100 MG Oral Tablet (Cozaar) Take 0.5 Tablets by mouth in the morning and 0.5 Tablets before bedtime. 4 07/22/19 25 Discontinu ed(Refill) Metoprolol Succinate ER 25 MG Oral Tablet Extended Release 24 Hour (Toprol XL) One half tablet by mouth daily in the evening. In addition to 50 mg daily in the morning 45 Tablet 3 4 07/21/19 25 Discontinu ed(Patient preference /discontin uation) documented as of this encounter (statuses as of 07/27/2024) Active Problems No known active problems documented as of this encounter (statuses as of 07/27/2024) Immunizations Name Administration Dates Next Due Seasonal [...] as of this encounter Miscellaneous Notes * Addendum Note - Damián Foster LPN - 07/27/2024 2:36 PM EDTAddended by: DAMIÁN FOSTER on: 07/27/2024 02:36 PM Modules accepted: Orders * Telephone Encounter - Damián Foster LPN - 07/27/2024 2:22 PM EDT Called number listed in today's note expecting son [place]. Patient answered. See also 07/20/24 note in this encounter for all complaints Pt still not feeling well Symptoms/SOB is worse in the morning. Palpitations PCP suggested changing atorvastatin to rosuvastatin 10mg d/t muscle and joint pain. Pt did stop atorvastatin two days ago, and started the rosuvastatin on 07/27/24. Muscle pain resolved. Updated med list. * Telephone Encounter - Eunice Gill OSA - 07/27/2024 2:19 PM EDT Person calling: [place] Relationship to patient: son Phone/Fax to return call: [phone] Reason for call(brief): speak to Dr. Mckeon Pharmacy: [facility] Provider Name:Dr. Mckeon Detailed message to office:Son would like Dr. Mckeon to call patient regarding message from 07/20,she has many questions and is not feeling well at all. Please advise. Thanks * Telephone Encounter - Blue Mckeon DO - 07/23/2024 8:38 AM EDT Losartan refill provided. Blue cMkeon DO * Telephone Encounter - Eunice Gill OSA - 07/21/2024 2:44 PM EDT Person calling: Barbara Relationship to patient: self Phone/Fax to return call: [phone] Reason for call(brief): losartan/update Pharmacy: [facility] Provider Name:Dr. Mckeon Detailed message to office:Patient will be out of Losartan by Saturday, PCP previously prescribed it but advised to contact cardiology first. Also asking about update fuel verification technician she placed yesterday. Please advise. Thanks * Telephone Encounter - Damián Foster LPN - 07/20/2024 1:15 PM EDT Increased episodes of fast heart rates and more SOB. Symptoms started to worsen approx 2 weeks ago.Symptoms are all day long, can occur at rest, but always happens with activity. Unable to walk short distances without stopping d/t fatigue and SOB. Denies edema. She is able to sleep at night without SOB Symptoms of palpitations/racing heart, Watch shows HR of 36-120 BP 120s/70's, but can go up to 130's, diastolic always in 70's. Reviewed med list Pt is taking toprol 50mg in AM only. Does not take evening dose d/t not feeling well. Med list updated Pt mentioned she had covid fall of 2023. documented in this encounter Plan of Treatment Upcoming Encounters Date Type Department Care Team (Late st Contact Info) Description 10/08/2024 9:30 AM EDT [facility] [address] [place] [phone] 11/03/2024 10:00 AM EDT [facility] [address] [place] [phone] Abrahan Carpio PA-C [address] [place] [address] Health Maintenance Due Date Last Done Comments [...] on patient's age to complete this topic Meningitis B Vaccine (Bexsero/Trumemba) Aged Out No longer eligible based on patient's age to complete this topic documented as of this encounter Medical Devices Not on filedocumented as of this encounter Care Teams Textile Artist Relationship Specialty Start Date End Date Stevie Mcclain DO PCP - General Family Medicine 10/31/23 documented as of this encounter
--- OUTSIDE RECORDS SUMMARY | 2024-07-28 18:17 | External Medical Summary | Summary of Care ---
Author Name Unknown Organization [facility] Address [address] [place] [address] Phone [phone] Care Team Providers Care Acid Patroller Name Role Phone Stevie Mcclain DO Primary Care Provider + Encounter Details Date Type Department Care Team (Late st Contact Info) Description 05/15/2024 2:30 PM EST Telemedicine [facility] [address] [place] [address] Matthew Singh DO [address], [place] [id number] States following surgery of eye and adnexa* Allergies Active Allergy Reactions Criticality Noted Date Comments Chlorthalidone Other (Please comment) Low 4 Headache Codeine Unknown Medium 12/17/2023 Cephalexin Unknown Medium 12/17/2023 Nitrofurantoin Unknown Medium 12/17/2023 Sulfa Antibiotics Unknown Medium 12/17/2023 Sulfamethoxazole Unknown Medium 12/17/2023 documented as of this encounter (statuses as of 05/15/2024) Medications Atorvastatin Calcium 10 MG Oral Tablet (Lipitor) Take 1 Tablet by mouth in the morning. 4 Active Ipratropium [place] 0.03 % Nasal Solution (Atrovent) Administer 2 [...] mg by mouth in the morning. Active CDB Infotek Gummy 50-45-3.8 MG Oral Tablet Chewable (Elderberry-Vit [...] the morning 45 Tablet 3 4 Active Tobramycin-dexA METHasone 0.3-0.1 % Ophthalmic Suspension Instill 1 Drop into the left eye in the morning and 1 Drop at noon and 1 Drop before bedtime. Shake bottle gently before each use. 5 mL 5 Active documented as of this encounter (statuses as of 05/15/2024) Active Problems No known active problems documented as of this encounter (statuses as of 05/15/2024) Immunizations Name Administration Dates Next Due Seasonal [...] on file documented as of this encounter Progress Notes * Matthew Singh DO - 05/15/2024 12:54 PM EST Patient location: HOME. I was in a hospital or clinic location. After connecting through [facility],patient was verified with two unique identifiers. Patient (or authorized legal car sales representative) was then informed that this was a Telemedicine visit and being conducted confidentially over secure lines. Methods to assure confidentiality were taken. Patient acknowledged consent and understanding of pr ivacy and security of the Telemedicine visit. The patient agreed to participate. 2w PO LTS and punctaplasty Doing well Minimal tearing and eye feels better Advised cont drops 1x daily til gone and ointment to lateral angle nightly til tube done Return PRN Call anytime with issues Matthew Singh DO 05/15/2024 12:55 PM documented in this encounter Plan of Treatment Upcoming Encounters Date Type Department Care Team (Late st Contact Info) Description 10/08/2024 9:30 AM EDT Cardiac Studies Cardiac Studies, [facility] [address] [place] [address] 11/03/2024 10:00 AM EDT Office Visit Cardiology, [facility] [address] [place] [address] Abrahan Carpio PA-C [address] [place] [address] Health Maintenance Due Date Last Done Comments [...] Not on filedocumented as of this encounter Visit Diagnoses Diagnosis States following surgery of eye and adnexa- Primary Other states following surgery of eye and adnexa documented in this encounter Care Teams Acid Patroller Relationship Specialty Start Date End Date Stevie Mcclain DO PCP - General Family Medicine 10/31/23 documented as of this encounter
--- OUTSIDE RECORDS SUMMARY | 2024-07-28 18:17 | External Medical Summary | Summary of Care ---
Author Name Unknown Organization [facility] Address [address] [place] [address] Phone [phone] Care Team Providers Care Ocular Pathologist Name Role Phone Stevie Mcclain DO Primary Care Provider + Reason for Visit * Reason Onset Date Comments Information 07/20/2024 Med Request 07/20/2024 Linda Encounter Details Date Type Department Care Team (Late st Contact Info) Description 07/20/2024 Telephone Cardiology, [facility] [address] [place] [address] Blue [...] encounter (statuses as of 07/27/2024) Medications Ipratropium [place] 0.03 % Nasal Solution (Atrovent) Administer 2 [...] mg by mouth in the morning. Active Insuritas Gummy 50-45-3.8 MG Oral Tablet Chewable (Elderberry-Vi [...] to patient: son Phone/Fax to return call: [phone] Reason for call(brief): speak to Dr. Mckeon Pharmacy: na Provider Name:Dr. Mckeon Detailed message to office:Son would like Dr. Mckeon to call patient regarding message from 07/20,she has many questions and is not feeling well at all. Please advise. Thanks * Telephone Encounter - Blue Mckeon DO - 07/23/2024 8:38 AM EDT Losartan refill provided. Blue Mckeon DO * Telephone Encounter - Eunice Gill OSA - 07/21/2024 2:44 PM EDT Person calling: Barbara Relationship to patient: self Phone/Fax to return call: [phone] Reason for call(brief): losartan/update Pharmacy: [facility] Provider Name:Dr. Mckeon Detailed message to office:Patient will be out of Losartan by Saturday, PCP previously prescribed it but advised to contact cardiology first. Also asking about update customer solutions coordinator she placed yesterday. Please advise. Thanks * [...] 9:30 AM EDT Cardiac Studies Cardiac Studies, [facility] [address] [place] [address] 11/03/2024 10:00 AM EDT Office Visit Cardiology, [facility] [address] [place] [phone] Abrahan Carpio PA-C [address] [place] [address] Health Maintenance Due Date Last Done Comments [...] filedocumented as of this encounter Care Teams Ocular Pathologist Relationship Specialty Start Date End Date Stevie Mcclain DO PCP - General Family Medicine 10/31/23 documented as of this encounter
--- OUTSIDE RECORDS SUMMARY | 2024-07-28 18:17 | External Medical Summary | Summary of Care ---
Author Name Unknown Organization [facility] Address [address] [place] [address] Phone [phone] Care Team Providers Care Private Chef Name Role Phone Stevie Mcclain DO Primary Care Provider + Reason for Visit * Reason Onset Date Comments Advice 04/13/2024 Encounter Details Date Type Department Care Team (Late st Contact Info) Description 04/13/2024 Telephone Cardiology, [facility] [address] [place] [address] Blue Mckeon DO [address] [place] [address] Advice Allergies Active Allergy Reactions Criticality Noted Date Comments Chlorthalidone Other (Please comment) Low 4 Headache Codeine Unknown Medium 12/17/2023 Cephalexin Unknown Medium 12/17/2023 Nitrofurantoin Unknown Medium 12/17/2023 Sulfa Antibiotics Unknown Medium 12/17/2023 Sulfamethoxazole Unknown Medium 12/17/2023 documented as of this encounter (statuses as of 05/18/2024) Medications Atorvastatin Calcium 10 MG Oral Tablet (Lipitor) Take 1 Tablet by mouth in the morning. 4 Active Ipratropium [place] 0.03 % Nasal Solution (Atrovent) Administer 2 [...] mg by mouth in the morning. Active Linchpin Gummy 50-45-3.8 MG Oral Tablet Chewable (Elderberry-Vit [...] as of this encounter (statuses as of 05/18/2024) Active Problems No known active problems documented as of this encounter (statuses as of 05/18/2024) Immunizations Name Administration Dates Next Due Seasonal [...] encounter Miscellaneous Notes * Telephone Encounter - Blue Mckeon DO - 05/18/2024 12:02 PM EST Updates noted. Pt on the metoprolol 50 mg am, , but not taking the extra 12.5 mg in evening. Work up for [facility] has been unremarkable with reasuring echo (mild to moderate aortic stenosis noted) nuclear stress perfroemd at [place] in Auguust normal. Continue present treatment. Blue Mckeon DO * Telephone Encounter - Tate Jones LPN - 04/29/2024 2:26 PM EST Please see patient's MyChart reply. * Telephone Encounter - Tate Jones LPN - 04/21/2024 1:16 PM EST Sent patient a Nuvola message to make aware. * Telephone Encounter - Blue Mckeon DO - 04/21/2024 1:11 PM EST I think it is reasonable for patient to go and enjoy the cruise. Recommend she paces herself and does not over due it. Use help in airport such as wheel chair service as necessary. She should carry on enough medication to last in case there is an emergency and her return from travel is delayed. Blue Mckeon DO * Telephone Encounter - Sherry Martinez OSA - 04/13/2024 4:40 PM EST Person calling: patient Relationship to patient: patient Phone/Fax to return call: [phone] Reason for call(brief): advice Pharmacy: -- Provider Name: Blue Mckeon DO Detailed message to office: Going on a cruise with daughter, is it ok to fly with her condition? As you know, when she goes up steps, or lifting anything, she gets short of breath sometimes. No changes. documented in this encounter Plan of Treatment Upcoming Encounters Date Type Department Care Team (Late st Contact Info) Description 10/08/2024 9:30 AM EDT Cardiac Studies Cardiac Studies, [facility] [address] [facility] [place] [address] 11/03/2024 10:00 AM EDT Office Visit Cardiology, [facility] [address] [place] [address] Abrahan Carpio PA-C [address] [place] [address] Health Maintenance Due Date Last Done Comments Depression Screening 1952 DTap/Tdap Vaccines (1 - Tdap) 07/30/1958 Zoster Vaccines (1 of 2) 07/30/1989 COVID-19 Vaccine ( season) 2023 03/06/2021, 05/18/2020, 04/27/2020 DXA Scan [...] filedocumented as of this encounter Care Teams Private Chef Relationship Specialty Start Date End Date Stevie Mcclain DO PCP - General Family Medicine 10/31/23 documented as of this encounter
--- OUTSIDE RECORDS SUMMARY | 2024-07-28 18:17 | External Medical Summary | Summary of Care ---
Author Name Unknown Organization [facility] Address [address] [place] [address] Phone [phone] Care Team Providers Care Newspaper Vendor Name Role Phone Stevie Mcclain DO Primary Care Provider + Reason for Visit * Reason Onset Date Comments Information 07/20/2024 Med Request 07/20/2024 Linda Encounter Details Date Type Department Care Team ([facility] st Contact Info) Description 07/20/2024 Telephone Cardiology, [facility] [address] [place] [phone] Blue Mckeon DO [address] [place] [address] Information; Med Request (Linda) Allergies Active Allergy Reactions Criticality Noted Date Comments Chlorthalidone Other (Please comment) Low 4 Headache Codeine Unknown Medium 12/17/2023 Cephalexin Unknown Medium 12/17/2023 Nitrofurantoin Unknown Medium 12/17/2023 Sulfa Antibiotics Unknown Medium 12/17/2023 Sulfamethoxazole Unknown Medium 12/17/2023 documented as of this encounter (statuses as of 07/23/2024) Medications Atorvastatin Calcium 10 MG Oral Tablet (Lipitor) Take 1 Tablet by mouth in the morning. 4 Active Ipratropium [place] 0.03 % Nasal Solution (Atrovent) Administer 2 [...] mg by mouth in the morning. Active HumanCloud Gummy 50-45-3.8 MG Oral Tablet Chewable (Elderberry-Vi [...] before bedtime. 90 Tablet 3 5 Active Losartan Potassium 100 MG Oral [...] as of this encounter (statuses as of 07/23/2024) Active Problems No known active problems documented as of this encounter (statuses as of 07/23/2024) Immunizations Name Administration Dates Next Due Seasonal [...] to patient: self Phone/Fax to return call: [phone] Reason for call(brief): losartan/update Pharmacy: [facility] Provider Name:Dr. Mckeon Detailed message to office:Patient will be out of Losartan by Saturday, PCP previously prescribed it but advised to contact cardiology first. Also asking about update talent acquisition project manager she placed yesterday. Please advise. Thanks * Telephone Encounter - Marilee Foster LPN - 07/20/2024 1:15 PM EDT [...] 9:30 AM EDT Cardiac Studies Cardiac Studies, [facility] [address] [place] [address] 11/03/2024 10:00 AM EDT Office Visit Cardiology, [facility] [address] [place] [phone] Abrahan Carpio PA-C [address] [place] [address] Health Maintenance Due Date Last Done Comments [...] filedocumented as of this encounter Care Teams Newspaper Vendor Relationship Specialty Start Date End Date Stevie Mcclain DO PCP - General Family Medicine 10/31/23 documented as of this encounter
--- OUTSIDE RECORDS SUMMARY | 2024-07-28 18:18 | External Medical Summary ---
Author Name Unknown Address Unknown Organization K01:[facility] [facility] [address] [place] [address] Laboratory Report Ordering Provider Test Date Status YOVANI KERN 02/07/2024 10:40:12 Final Observation Date Value Abnormality Reference (Units ) Status BUN 02/07/2024 10:40:12 29 Above high normal 6-20 (mg/dL) Final Creatinine 02/07/2024 10:40:12 0.9 0.5-1.0 (mg/dL) Final Glomerular filtration rate/1.73 sq M.predicted [Volume Rate/Area] in Serum, Plasma or Blood by Creatinine-based formula (CKD-EPI) 02/07/2024 10:40:12 67 >=60 (mL/min) Final eGFR is calculated based on the CKD-EPI 2020 equation. Sodium 02/07/2024 10:40:12 143 135-146 (m mol/L) Final Potassium 02/07/2024 10:40:12 4.2 3.5-5.1 (m mol/L) Final Cl 02/07/2024 10:40:12 103 98-107 (mm ol/L) Final CO2 02/07/2024 10:40:12 26 22-32 (mmo l/L) Final Anion gap 02/07/2024 10:40:12 14 7-15 (mmol /L) Final Glucose 02/07/2024 10:40:12 126 Above high normal 70 -120 (mg/dL) Final Calcium 02/07/2024 10:40:12 9.9 8.4-10.2 ( mg/dL) Final Performing Location [facility] [place] [address] [place] [address]
--- OUTSIDE RECORDS SUMMARY | 2024-07-28 18:18 | External Medical Summary | Summary of Care ---
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 4 Active Ipratropium [place] 0.03 % Nasal Solution (Atrovent) Administer 2 [...] mg by mouth in the morning. Active Abcellute Gummy 50-45-3.8 MG Oral Tablet Chewable (ElderSCYFIX-Vit paul C-Zinc) Take by mouth. Ac tive [...] as of this encounter (statuses as of 04/15/2024) Active Problems No known active problems documented as of this encounter (statuses as of 04/15/2024) Immunizations Name Administration Dates Next Due Seasonal [...] on file documented as of this encounter Plan of Treatment Upcoming Encounters Date Type Department Care Team (Late st Contact Info) Description 04/29/2024 8:00 AM EST Office Visit [facility] [address] [place] [address] Matthew Singh DO [address] [place] [address] 10/08/2024 9:30 AM EDT Cardiac Studies Cardiac Studies, [facility] [address] [facility] [place] [address] 11/03/2024 10:00 AM EDT Office Visit Cardiology, [facility] [address] [facility] [place] [address] Abrahan Carpio, PAHallieC [address] [facility] [place] [address] Scheduled Referrals Name Type Priority Associated Diagnoses Orde r Schedule ADULT/PEDS OPHTHALMOLOGY/OPTOM ETRY REFERRAL OP Referral Within 30 days (routine) 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
--- OUTSIDE RECORDS SUMMARY | 2024-07-28 18:18 | External Medical Summary | Summary of Care ---
Author Name Unknown Organization [facility] Address [address] [place] [address] Phone [phone] Care Team Providers Care Medical Collections Representative Name Role Phone Stevie Mcclain DO Primary Care Provider + Reason for Visit * Reason Comments Outpatient Testing Encounter Details Date Type Department Care Team (Late st Contact Info) Description 02/07/2024 10:40 AM EDT Laboratory Laboratory [facility] [address] [place] [address] [employer], [facility] [address] [place] [address] Primary hypertension Allergies Active Allergy Reactions Criticality Noted Date Comments Chlorthalidone Other (Please comment) Low Headache Codeine Unknown Medium 12/17/2023 Cephalexin Unknown Medium 12/17/2023 Nitrofurantoin Unknown Medium 12/17/2023 Sulfa Antibiotics Unknown Medium 12/17/2023 Sulfamethoxazole Unknown Medium 12/17/2023 documented as of this encounter (statuses as of 02/07/2024) Medications Medication Sig Dispensed Refills Start Date End Date Status Atorvastatin Calcium 10 MG Oral Tablet (Lipitor) Take 1 Tablet by mouth in the morning. 11/25/2023 Active Ipratropium [place] 0.03 % Nasal Solution (Atrovent) Administer 2 Sprays into nostril at bedtime. 10/23/2023 Active LORazepam 0.5 MG Oral Tablet (Ativan) Take 1 Tablet by mouth as needed for Anxiety. 10/30/2023 Active Losartan Potassium 100 MG Oral Tablet (Cozaar) Take 1 Tablet by mouth in the morning. 10/07/2023 Active Sertraline HCl 50 MG Oral Tablet (Zoloft) Take 1 Tablet by mouth in the morning. 12/15/2023 Active Aspirin 81 MG Oral Tablet Delayed Release (Aspirin 81) Take 1 Tablet by mouth in the morning. Active Vitamin C 500 MG Oral Capsule Take 1,000 mg by mouth in the morning. Active Calcium Carbonate-Vitamin D 500-5 MG-MCG Oral Tablet Take 1 [...] mg by mouth in the morning. Active APX Group Gummy 50-45-3.8 MG Oral Tablet Chewable (Elderberry-Vitamin C-Zinc) Take by mouth. Active Metoprolol Succinate ER 50 MG Oral Tablet Extended Release 24 Hour (Toprol XL) One and a half tablets by mouth daily in the morning. 135 Tablet 3 01/03/2024 Active Furosemide 20 MG Oral Tablet (Lasix) Take 1 Tablet by mouth in the morning. 90 Tablet 3 01/27/2024 Active documented as of this encounter (statuses as of 02/07/2024) Active Problems No known active problems documented as of this encounter (statuses as of 02/07/2024) Immunizations Name Administration Dates Next Due Seasonal Influenza, High Dos e, Trivalent, PF, IM (Fluzone HD) 12/17/2023 documented as of this encounter Social History Tobacco Use Types Packs/Day Years Used Date Smoking Tobacco: Never Assessed Utilities Answer Date Recorded Do you have trouble paying y our heating, water, or electric bill? (Adult - for ages 18 years and over) Not on file 09/24/2023 Is your family able to pay t he heat, water, or electric bill? (Household - for ages 0-17 years) Not on file 09/24/2023 Does your family have access to good internet? (Household - for ages 0-17 years) Not on file 09/24/2023 Social Connections Answer Date Recorded How often do you feel lonely or isolated from those around you? (Adult - for ages 18 years and over) Not on file 09/24/2023 Sex and Gender Information Value Date Recorded Sex Assigned at Not on file Gender Identity Not on file Sexual Orientation Not on file Job Start Date Occupation Industry Not on file Not on file Not on file documented as of this encounter Plan of Treatment Upcoming Encounters Date Type Department Care Team (Late st Contact Info) Description 04/03/2024 10:30 AM EST Office Visit Cardiology, [facility] [address] [place] [address] Blue Mckeon DO [address] [place] [address] Pending Results Name Type Priority Associated Diagnoses Date /Time BASIC METABOLIC PANEL Lab Routine Primary hypertension 02/07/2024 10:40 AM EDT Health Maintenance Due Date Last Done Comments Depression Screening 1952 DTap/Tdap Vaccines (1 - Tdap) 07/30/1958 Zoster Vaccines (1 of 2) 07/30/1989 COVID-19 Vaccine ( season) 2023 03/06/2021, 05/18/2020, 04/27/2020 DXA Scan 12/25/2027 12/24/2017, 12/24/2017 Pneumococcal Vaccine: 65+ Years Completed 01/10/2015, 06/06/2006 Influenza Vaccine (FLU [...] as of this encounter Visit Diagnoses Diagnosis Primary hypertension Unspecified essential hypertension documented in this encounter Care Teams Medical Collections Representative Relationship Specialty Start Date End Date Stevie Mcclain DO [address] [place] [address] PCP - General Family Medicine 10/31/23 documented as of this encounter
--- OUTSIDE RECORDS SUMMARY | 2024-07-28 18:18 | External Medical Summary | Summary of Care ---
Author Name Unknown Organization [facility] Address [address] [place] [address] Phone [phone] Care Team Providers Care Coal Tower Operator Name Role Phone Stevie Mcclain DO Primary Care Provider + Reason for Visit * Reason Onset Date Comments Advice 05/04/2024 Advice 05/04/2024 Encounter Details Date Type Department Care Team (Late st Contact Info) Description 05/04/2024 Telephone [facility] [address] [id number] Matthew Singh DO [address] [place] [address] Advice; Advice Allergies Active Allergy Reactions Criticality Noted [...] mouth in the morning. 4 Active Ipratropium [place] 0.03 % Nasal Solution (Atrovent) Administer 2 [...] mg by mouth in the morning. Active [employer] Gummy 50-45-3.8 MG Oral Tablet Chewable (Elderberry-Vit [...] Encounter - Jeannette Kiran PA-C - 05/12/2024 12:51 PM EST Called and spoke with patient. Advised she should continue both the drops and ointment until her follow-up call with Dr. Singh. She again said she thinks she is healing very well. She thinks she has enough ointment to last her but feels the drops are getting low. I sent a refill of the drop. I told her the tobradex ointment is usually cost-prohibitive, so if she runs out, she should just use plainvaseline in place of that. She denied any other questions or concerns at this time. * Telephone Encounter - Wendy Dunn LPN - 05/12/2024 11:51 AM EST Patient s/p LTS LLL procedure 05/05 , has been using the following: Tobramycin - dexamethasone susp. TID Tobramycin-dexamethasone ointment QID Wants to know how long to proceed using medication? To date patient states that everything is goingwell. Next f/u appointment is 05/15/24 which will be a telephonic appointment. Should she continue to use both until that telephonic call? * Telephone Encounter - Wendy Dunn LPN - 05/11/2024 1:25 PM EST left message for patient to call back and ask for a nurse. Please verify the name of the drops patient is referring to that was given to her the day of the procedure before sending message to provider. * Telephone Encounter - Wendy Jordan OSA - 05/08/2024 3:10 PM EST Pt had LTS LLL procedure 05/[address] Singh. Asking how long she is to use eye drops. * Telephone Encounter - Eileen Cardoso OSA - 05/04/2024 2:52 PM EST INCLUDE THE FOLLOWING INFORMATION IN ALL OTHER TELEPHONE ENCOUNTERS: REASON FOR CALL: To ask if she can take jewish before her surgery in the am with Dr. Singh DOCTOR PERFORMING THE SURGERY NAME: Dr. Singh SURGERY NEEDED IF KNOWN: WHOS CALLING patient PHONE NUMBER TO CALL BACK [phone] NOTIFY PATIENT: DEPARTMENT WILL BE CALLING YOU SOON THEY REVIEW THE MESSAGE. PLEASE NOTE THIS COULD BE UP TO A WEEK [facility]- ROUTE TO [id number] . [facility]- ROUTE TO [id number] [facility]- ROUTE TO [id number] [facility]- ROUTE TO [id number] documented in this encounter Plan of Treatment Upcoming Encounters Date Type Department Care Team (Late st Contact Info) Description 05/15/2024 2:30 PM EST Telemedicine [facility] [address] [place] [address] Matthew Singh, [address] [place] [address] 10/08/2024 9:30 AM EDT Cardiac Studies Cardiac Studies, [facility] [address] [facility] [place] [address] 11/03/2024 10:00 AM EDT Office Visit Cardiology, [facility] [address] [facility] [place] [address] Abrahan Carpio PA-C [address] [facility] [place] [address] Health Maintenance Due Date Last Done Comments [...] filedocumented as of this encounter Care Teams Coal Tower Operator Relationship Specialty Start Date End Date Stevie Mcclain DO PCP - General Family Medicine 10/31/23 documented as of this encounter
--- OUTSIDE RECORDS SUMMARY | 2024-07-28 18:18 | External Medical Summary | Summary of Care ---
Author Name Unknown Organization [facility] Address [address] [place] [address] Phone [phone] Care Team Providers Care Care Management Coordinator Name Role Phone Stevie Mcclain DO Primary Care Provider + Reason for Visit * Reason Onset Date Comments Advice 02/10/2024 Encounter Details Date Type Department Care Team (Late st Contact Info) Description 02/10/2024 Telephone Cardiology, [facility] [address] [place] [address] Blue Mckeon DO [address] [place] [address] Advice Allergies Active Allergy Reactions Criticality Noted Date Comments Chlorthalidone Other (Please comment) Low 4 Headache Codeine Unknown Medium 12/17/2023 Cephalexin Unknown Medium 12/17/2023 Nitrofurantoin Unknown Medium 12/17/2023 Sulfa Antibiotics Unknown Medium 12/17/2023 Sulfamethoxazole Unknown Medium 12/17/2023 documented as of this encounter (statuses as of 03/06/2024) Medications Atorvastatin Calcium 10 MG Oral Tablet (Lipitor) Take 1 Tablet by mouth in the morning. 4 Active Ipratropium [place] 0.03 % Nasal Solution (Atrovent) Administer 2 Sprays into nostril at bedtime. 4 Active LORazepam 0.5 MG Oral Tablet (Ativan) Take 1 Tablet by mouth as needed for Anxiety. 4 Active Losartan Potassium 100 MG Oral Tablet (Cozaar) Take 1 Tablet by mouth in the morning. 4 Active Sertraline HCl 50 MG Oral [...] mg by mouth in the morning. Active [employer] Gummy 50-45-3.8 MG Oral Tablet Chewable (ElderUnity Technologies-Vi tamin C-Zinc) Take by mouth. A ctive [...] daily in the morning. 135 Tablet 3 4 03/06/20 24 Discontinu ed(Refill) documented as of this encounter (statuses as of 03/06/2024) Active Problems No known active problems documented as of this encounter (statuses as of 03/06/2024) Immunizations Name Administration Dates Next Due Seasonal [...] Telephone Encounter - Blue Mckeon DO - 03/06/2024 4:12 PM EST I called and spoke to the patient in follow-up. Since a week ago she had been taking metoprolol succinate 50 milligrams 1 time per day as compared to 75 milligrams daily. She feels better with regards to less shortness of breath, unless dizziness. Continue metoprolol succinate 50 milligrams 1 time per day. I have sent a new prescription to reflect the new dose. Blue Mckeon DO * Telephone Encounter - Bruce Guy OSA - 02/28/2024 10:16 AM EST Person calling: Pt Relationship to patient: Phone/Fax to return call: [phone] Reason for call(brief): update Pharmacy: Provider Name:Dr Mckeon Detailed message to office: Pt calling back in regards to previous message. Please advise. * Telephone Encounter - Eunice Gill OSA - 02/27/2024 2:46 PM EST Person calling: Barbara Relationship to patient: self Phone/Fax to return call: [phone] Reason for call(brief): update Pharmacy: na Provider Name:Dr. Mckeon Detailed message to office:Patient calling in for update on previous message. Please advise. Thanks * Telephone Encounter - Jamila Bhatti CMA - 02/25/2024 10:24 AM EST Patient calling in today feeling more SOB (with exertion only). Feels "light headed" after walking up stairs or to the car, but doesn't feel like she is going to pass out. States that once she sits down and rests it's a quick recovery. Denies chest pain, but says she does get RANDALL with the SOB sometimes. Has not been taking BP regularly, but started to take it when symptomatic. BP has been 90's/low 60's the past week, especially in the afternoon which is when she is the most symptomatic. She states that other times of day BP is fine, 120's/80's. Takes 75mg metoprolol in the AM (once daily). Wondering if she could take Metoprolol 50mg in the AMand 25mg Metoprolol at night before bed, with her evening Losartan dose. She thinks this may help with the symptoms. States that other than these symptoms she feels fine. Wondering if her symptoms are still COVID related. Diagnosed with COVID on 01/30. * Telephone Encounter - Tate Jones LPN - 02/10/2024 9:38 AM EST Sent patient a [employer]) message to make aware. * Telephone Encounter - Blue Mckeon DO - 02/10/2024 9:31 AM EST Chemistry panel reveals stable kidney function and electrolytes. Patient has a history of sinus rhythm with monitor frequent premature atrial contractions. I would speculate that her heart rate of 45 May be underestimated in the setting of premature atrial contractions (when she counts her pulse, the premature atrial contractions may not be counted). Blood pressure appears stable considering recent COVID illness. In my experience, it often times takes someone in her circumstances a few weeks to recover from a COVID illness. If she had held her atorvastatin during the Paxlovid, she may resume it now. Continue present treatment including furosemide, metoprolol, aspirin, atorvastatin, losartan. Blue Mckeon DO * Telephone Encounter - Marina Lobo CMA - 02/10/2024 9:17 AM EST Pt calling in with concerns of low blood pressure readings. Had Covid, on day 10 now. Finished 5 days of Paxlovid. Was having dizziness, fast HR, SOBOE, HR has since been better. Dizziness resolved. Still SOB. Concerned the Paxlovid could have caused the low BP. BP over past week was 109/73, 100/68 and 98/68. BP yesterday morning was 124/82, pulse 44 and yesterday evening 119/87, pulse 45. Also asking for results of recent BMP. CB# [phone] documented in this encounter Plan of Treatment Upcoming Encounters Date Type Department Care Team (Late st Contact Info) Description 04/03/2024 10:30 AM EST Office Visit Cardiology, [facility] [address] [place] [id number] Blue Mckeon DO [address] [place] [address] Health Maintenance Due Date Last Done Comments Depression Screening 1952 DTap/Tdap Vaccines (1 - Tdap) 07/30/1958 Zoster Vaccines (1 of 2) 07/30/1989 COVID-19 Vaccine (4 - 2023- season) 2023 03/06/2021, 05/18/2020, 04/27/2020 DXA Scan [...] filedocumented as of this encounter Care Teams Care Management Coordinator Relationship Specialty Start Date End Date Stevie Mcclain DO [address] [address] PCP - General Family Medicine 10/31/23 documented as of this encounter
--- OUTSIDE RECORDS SUMMARY | 2024-07-28 18:18 | External Medical Summary | Summary of Care ---
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 Ida Willams, OD [address] [place] [address] Phone: tel: fax: Referral ID Status Reason Start Date Expiration Date Visits Requested Visits Authorized [id number] Authorized Specialty Services Required 04/15/2024 [id number] Encounter Details Date Type Department Care Team (Late st Contact Info) Description 04/29/2024 8:00 AM EST Office Visit [address] [address] Matthew Singh DO [address] [place] [address] Senile ectropion of left lower eyelid*; 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 4 Active Ipratropium [place] 0.03 % Nasal Solution (Atrovent) Administer 2 [...] mg by mouth in the morning. Active [employer] Gummy 50-45-3.8 MG Oral Tablet Chewable ([employer]ist[employer]-Vit paul C-Zinc) Take by mouth. Ac tive [...] as of this encounter (statuses as of 04/29/2024) Active Problems No known active problems documented as of this encounter (statuses as of 04/29/2024) Immunizations Name Administration Dates Next Due Seasonal [...] of this encounter Progress Notes * Matthew Singh, - 04/29/2024 8:30 AM EST 04/29/2024 8:30 AM [facility] Op[facility] Note Eyelid Consult New patient eval referred by Dr Willams. Chief complaint ectropion with tearing OS. HPI: New patient consult Tearing and redness and pain OS Referred for lower lid repair On ASA Admits OS is bothersome ADL Assessment: Do your eyelids affect driving? Yes tearing Do your eyelids affecting reading? Yes tearing Do you generally see better with your eyelids raised? NA Do you feel you are constantly raising forehead to see better and get headaches? NA Nursing Notes reviewed. Medical Hx: CAD, heart issues Ocular Hx: denies Fam Hx: no glaucoma Social - nonsmoker ROS: Eye: denies new onset double vision, headache Neuro: denies new onset HARMAN, weakness or speech issues Neck: denies new onset trouble swallowing or neck masses/nodes General: no recent weight loss or changes Pulm: denies SOB or labored breathing Skin: denies new skin changes or rashes/blisters Mouth: denies blisters or dental issues Heart: denies palpitations Ear: denies new onset hearing loss Endocrine: denies new onset hair loss, sweats Please see full exam details below. 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 30 min total including discussion of surgery Matthew Singh DO 04/29/2024 8:30 AM documented in this encounter Nursing Notes * Roslyn Schmidt COA - 04/29/2024 8:25 AM EST External Photography done. * Wendy Haley LPN - 04/29/2024 7:39 AM EST Barbara Wilks is a 83 year old female who presents for Ectropion of left eyelid. Last Visit: Visit date not found (in office), Visit date not found (telemedicine) She currently states no change in vision. Are you diabetic? No Current Ophthalmic Medications: spray from eye DrHugo? Referred by: Dr. Willams Vision, Tonometry, current glass prescription and pupil check if done can be found in the ophth exam documented in this encounter Plan of Treatment Upcoming Encounters Date Type Department Care Team (Late st Contact Info) Description 05/05/2024 12:30 PM EST Office Visit [facility] [address] [place], [place] [phone] Matthew Singh, [address] [place] [address] Jeannette Kiran PA-C [address] [place], [place] [phone] , Opthalmology Proc [address] [place], [place] [id number] 10/08/2024 9:30 AM EDT Cardiac Studies Cardiac Studies, [facility] [address] [facility] [place] [address] 11/03/2024 10:00 AM EDT Office Visit Cardiology, [facility] [address] [facility] [place] [address] Abrahan Carpio PADexter 132 [facility] [place] [address] Scheduled Orders Name Type Priority Associated Diagnoses Orde r Schedule EXTERNAL EYE PHOTOGRAPHY Procedures Routine Senile ectropion of left lower eyelid Ordered: 04/29/2024 Health Maintenance Due Date Last Done Comments [...] as of this encounter Visit Diagnoses Diagnosis Senile ectropion of left lower eyelid- Primary Senile ectropion 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
--- OUTSIDE RECORDS SUMMARY | 2024-07-28 18:18 | External Medical Summary | Summary of Care ---
Author Name Unknown Organization [facility] Address [address] [place] [address] Phone [phone] Care Team Providers Care Electric Gas Appliances Demonstrator Name Role Phone Stevie Mcclain DO Primary Care Provider + Reason for Visit * Reason Onset Date Comments Advice 04/13/2024 Encounter Details Date Type Department Care Team (Late st Contact Info) Description 04/13/2024 Telephone Cardiology, [facility] [address] [place] [address] Blue Mckeon DO [address] [place] [address] Advice Allergies Active Allergy Reactions Criticality Noted Date Comments Chlorthalidone Other (Please comment) Low 4 Headache Codeine Unknown Medium 12/17/2023 Cephalexin Unknown Medium 12/17/2023 Nitrofurantoin Unknown Medium 12/17/2023 Sulfa Antibiotics Unknown Medium 12/17/2023 Sulfamethoxazole Unknown Medium 12/17/2023 documented as of this encounter (statuses as of 04/21/2024) Medications Atorvastatin Calcium 10 MG Oral Tablet (Lipitor) Take 1 Tablet by mouth in the morning. 4 Active Ipratropium [place] 0.03 % Nasal Solution (Atrovent) Administer 2 [...] mg by mouth in the morning. Active [employer] Gummy 50-45-3.8 MG Oral Tablet Chewable (Elderberry-Vit [...] as of this encounter (statuses as of 04/21/2024) Active Problems No known active problems documented as of this encounter (statuses as of 04/21/2024) Immunizations Name Administration Dates Next Due Seasonal [...] encounter Miscellaneous Notes * Telephone Encounter - Tate Joens LPN - 04/21/2024 1:16 PM EST Sent patient a [employer] message to make aware. * Telephone Encounter [...] to patient: patient Phone/Fax to return call: [phone] Reason for call(brief): advice Pharmacy: -- Provider [...] Description 04/29/2024 8:00 AM EST Office Visit [facility] Eye [facility] [place] [address] Matthew Singh DO [facility] [place] [address] 10/08/2024 9:30 AM EDT Cardiac Studies Cardiac Studies, [address] [place] [address] 11/03/2024 10:00 AM EDT Office Visit Cardiology, [facility] [address] [place] [address] Abrhaan Carpio PA-C [address] [place] [address] Health Maintenance Due Date Last Done Comments Depression Screening 1952 DTap/Tdap Vaccines (1 - Tdap) 07/30/1958 Zoster Vaccines (1 of 2) 07/30/1989 COVID-19 Vaccine ( - season) 2023 03/06/2021, 05/18/2020, 04/27/2020 DXA [...] filedocumented as of this encounter Care Teams Electric Gas Appliances Demonstrator Relationship Specialty Start Date End Date Stevie Mcclain DO PCP - General Family Medicine 10/31/23 documented as of this encounter
--- OUTSIDE RECORDS SUMMARY | 2024-07-28 18:18 | External Medical Summary | Summary of Care ---
Author Name Unknown Organization [facility] Address [address] [place] [address] Phone [phone] Care Team Providers Care Contract Writer Name Role Phone Stevie Mcclain DO Primary Care Provider + Reason for Visit * Reason Onset Date Comments Advice 04/13/2024 Encounter Details Date Type Department Care Team (Late st Contact Info) Description 04/13/2024 Telephone Cardiology, [facility] [address] [place] [address] Blue Mckeon DO [address] [place] [address] Advice Allergies Active Allergy Reactions Criticality Noted [...] mouth in the morning. 4 Active Ipratropium [place] 0.03 % Nasal Solution (Atrovent) Administer 2 [...] mg by mouth in the morning. Active [employer] Gummy 50-45-3.8 MG Oral Tablet Chewable (Elderberry-Vit [...] Miscellaneous Notes * Telephone Encounter - Tate Jones LPN - 04/29/2024 2:26 PM EST Please see patient's MyChart reply. * Telephone Encounter - Tate Jones LPN - 04/21/2024 1:16 PM EST Sent patient a [employer] message to make aware. * Telephone Encounter [...] to patient: patient Phone/Fax to return call: [phone] Reason for call(brief): advice Pharmacy: -- Provider [...] Description 05/05/2024 12:30 PM EST Office Visit [address] [phone] Matthew Singh, DO [address] [place] [address] Jeannette Kiran PA-C [address] [place], [place] [phone] Rm, Opthalmology Proc [address] [place], [place] [id number] 10/08/2024 9:30 AM EDT Cardiac Studies Cardiac Studies, [facility] [address] [facility] [place] [address] 11/03/2024 10:00 AM EDT Office Visit Cardiology, [facility] [address] [facility] [place] [address] Abrahan Carpio PA-C [address] [facility] [place] [address] Health Maintenance Due Date Last Done Comments [...] filedocumented as of this encounter Care Teams Contract Writer Relationship Specialty Start Date End Date Stevie Mcclain DO PCP - General Family Medicine 10/31/23 documented as of this encounter
--- OUTSIDE RECORDS SUMMARY | 2024-07-28 18:18 | External Medical Summary | Summary of Care ---
Author Name Unknown Organization [facility] Address [address] [place] [address] Phone [phone] Care Team Providers Care Orthodontic Technician Name Role Phone Stevie Mcclain DO Primary Care Provider + Reason for Referral * Precert (Diagnostic Medical) (Within 10 days (routine)) - Authorized Specialty Diagnoses / Procedures Referred By Contac t Referred To Contact Cardiac Studies Diagnoses Nonrheumatic aortic valve stenosis Procedures ECHO, COMPLETE (2D), TRANS-THORACIC Blue Mckeon DO [address] [place] [address] Phone: tel: fax: Referral ID Status Reason Start Date Expiration Date V isits Requested Visits Authorized [id number] Authorized Precert 10/06/2024 999 999 Reason for Visit * Reason Comments Follow Up 3 month follow-up Encounter Details Date Type Department Care Team (Latest Contact Info) Description 04/03/2024 10:30 AM EST Office Visit Cardiology, [facility] [address] [place] [address] Blue Mckeon DO [address] [place] [address] Palpitations*; PSVT (paroxysmal supraventricular tachycardia) (HCC); Primary hypertension; RANDALL (dyspnea on exertion); Dyslipidemia, goal LDL below 70; Nonrheumatic aortic valve stenosis Allergies Active Allergy Reactions Criticality Noted Date Comments Chlorthalidone Other (Please comment) Low 4 Headache Codeine Unknown Medium 12/17/2023 Cephalexin Unknown Medium 12/17/2023 Nitrofurantoin Unknown Medium 12/17/2023 Sulfa Antibiotics Unknown Medium 12/17/2023 Sulfamethoxazole Unknown Medium 12/17/2023 documented as of this encounter (statuses as of 04/03/2024) Medications Atorvastatin Calcium 10 MG Oral Tablet (Lipitor) Take 1 Tablet by mouth in the morning. 4 Active Ipratropium [place] 0.03 % Nasal Solution (Atrovent) Administer 2 [...] mg by mouth in the morning. Active [employer] Gummy 50-45-3.8 MG Oral Tablet Chewable (Elderberry-Vit [...] as of this encounter (statuses as of 04/03/2024) Active Problems No known active problems documented as of this encounter (statuses as of 04/03/2024) Immunizations Name Administration Dates Next Due Seasonal [...] on file documented as of this encounter Last Filed Vital Signs Vital Sign Reading Time Taken Comments Blood Pressure 138/80 04/03/2024 10:13 AM EST Pulse 68 04/03/2024 10:13 AM EST Temperature - - Respiratory Rate 20 04/03/2024 10:13 AM EST Oxygen Saturation - - Inhaled Oxygen Concentration - - Weight 61.4 kg (135 lb 4.8 oz) 04/03/2024 10:13 AM EST Height - - Body Mass Index - - documented in this encounter Progress Notes * Blue Mckeon, DO - 04/03/2024 10:21 AM EST 04/03/2024 Cardiology Follow Up SUBJECTIVE: History of Present Illness Barbara Wilks, an 83-year-old female with a history of tachycardia and shortness of breath, returns for a cardiology follow-up. She reports persistent, albeit improved, symptoms of tachycardia anddyspnea. These symptoms are not constant, with some days being symptom-free, while others are marked by tachycardia and exertional dyspnea, particularly when carrying items or climbing stairs. She also experiences shortness of breath independent of tachycardia, particularly after climbing stairs. A seven-day heart monitor was previously placed, which revealed an average heart rate of 64 beats per minute, mostly in regular sinus rhythm. However, there were 88 episodes of supraventricular tachycardia and several instances of premature atrial contractions, which correlated with her symptom diary entries. She was switched from atenolol to metoprolol at her previous visit. Initially, the dose was increased to one and a half tablets, but due to low blood pressure and lightheadedness, she reverted to onetablet. She takes metoprolol in the morning and was taking half a tablet at night for a couple of weeks. In addition to metoprolol, she is on losartan, split into two doses, and furosemide, which was started a month after her previous visit. The furosemide has increased her urination frequency, particularly for a few hours after taking the medication. She has a history of high blood pressure, with previous readings as high as 170/92, but her currentreading is 138/80. She also has a slight heart murmur due to mild to moderate aortic stenosis, and a follow-up echocardiogram is scheduled for October 2024. She is also on atorvastatin for high cholesterol. Her most recent chemistry panel in February 2021 showed normal kidney function and electrolytes. Extensive ROS: All systems reviewed & are unremarkable except as noted in HPI & below Cardiovascular (chest pain/palpitations/fluttering/diaphoresis/dyspnea on exertion/paroxysmally nocturnal dyspnea):Negative Review of patient's allergies indicates: Allergen Reactions Codeine Unknown Keflex [Cephalexin] Unknown Macrobid [Nitrofurantoin] Unknown Sulfa Antibiotics Unknown Sulfamethoxazole Unknown Chlorthalidone Other (Please comment) Headache Current Outpatient Medications Medication Sig Dispense Refill Atorvastatin Calcium 10 MG Oral Tablet (Lipitor) Take 1 Tablet by mouth in the morning. Losartan Potassium 100 MG Oral Tablet (Cozaar) Take 0.5 Tablets by mouth in the morning and 0.5 Tablets before bedtime. Sertraline HCl 50 MG Oral Tablet (Zoloft) Take 1 Tablet by mouth in the morning. Aspirin 81 MG Oral Tablet Delayed Release (Aspirin 81) Take 1 Tablet by mouth in the morning. Vitamin C 500 MG Oral Capsule Take 1,000 mg by mouth in the morning. Calcium Carbonate-Vitamin D 500-5 MG-MCG Oral Tablet Take 1 Tablet by mouth in the morning. Chelated Zinc 50 MG Oral Tablet Take 50 mg by mouth in the morning. [employer] Gummy 50-45-3.8 MG Oral Tablet Chewable (Elderberry- Vitamin C-Zinc) Take by mouth. Furosemide 20 MG Oral Tablet (Lasix) Take 1 Tablet by mouth in the morning. 90 Tablet 3 Metoprolol Succinate ER 50 MG Oral Tablet Extended Release 24 Hour (Toprol XL) One tablet by mouth daily 90 Tablet 3 Ipratropium [place] 0.03 % Nasal Solution (Atrovent) Administer 2 Sprays into nostril at bedtime. (Patient not taking: Reported on 12/17/2023) LORazepam 0.5 MG Oral Tablet (Ativan) Take 1 Tablet by mouth as needed for Anxiety. (Patient not taking: Reported on 04/03/2024) Fluticasone Propionate 50 MCG/ACT Nasal Suspension (Flonase) Administer 2 Sprays into nostril in the morning. (Patient not taking: Reported on 04/03/2024) Zafirlukast 20 MG Oral Tablet (Accolate) Take 1 Tablet by mouth in the morning and 1 Tablet before bedtime. With meals. (Patient not taking: Reported on 04/03/2024) No current facility-administered medications for this visit. OBJECTIVE/PHYSICAL EXAMINATION: BP 138/80 (BP Site: Left Arm) | Pulse 68 | Resp 20 | Wt 61.4 kg (135 lb 4.8 oz) BP Readings from Last 4 Encounters: 04/03/24 138/80 12/17/23 174/92 General: no acute distress and stated age Eyes: conjunctiva are pink and non-injected, sclera clear Neck: normal jugular venous pulse, no hepatojugular reflux Chest: normal shape and normal respiratory effort Lungs: clear to auscultation , no rales rhonchi or wheezing Cardiac Exam: - regular heart sounds, 1/6 SM Abdomen: abdomen soft, non-tender, no abnormal masses and no hepatosplenomegaly Musculoskeletal: no gait disturbance, no weakness Extremities: no edema and no cyanosis Neuro: grossly normal exam Psych: appropriate affect and insight. Data: Results LABS Chemistry panel: Normal kidney function, normal electrolytes (02/2024) DIAGNOSTIC Heart monitor: Average heart rate 64 bpm, 88 episodes of supraventricular tachycardia, 11 symptom button presses, 10 diary entries, premature atrial contractions (12/17/2023) EKG: Sinus bradycardia, heart rate 58 bpm, otherwise normal (04/03/2024) Transthoracic echocardiogram performed 10/29/2023 at [facility]: Mild concentric left ventricular hypertrophy [id number] aortic valve stenosis Mild aortic regurgitation Mild mitral regurgitation With normal left atrial size LVEF normal 55-60% Right ventricular systolic pressure in the range of 30 to 40 millimeters Hg -no comment was made with regards to assessment of left ventricular diastolic function. Summary of pharmacologic nuclear stress test performed 11/25/2023, [facility], interpreted by Dr Mukherjee: Normal Lexiscan myocardial perfusion imaging study without evidence of ischemia or scar Normal gated wall motion, LVEF > 70% The resting blood pressure at the time of the study was 166/94 with maximum blood pressure of 181/92 Assessment & Plan Supraventricular Tachycardia (SVT) Intermittent episodes of SVT with associated PACs. Patient reports improvement but still experiences episodes of tachycardia and dyspnea on exertion. Heart monitor showed 88 episodes of SVT over a week, correlating with symptoms. Current medication includes metoprolol, which was adjusted due to hypotension and lightheadedness. Discussed that PACs and SVT are not dangerous but can be a nuisance. Considered adding back metoprolol in the evening at a lower dose to manage symptoms without significantly lowering blood pressure. - Continue metoprolol succinate 50 mg in the morning and add 12.5 mg in the evening - Monitor for symptoms of lightheadedness or dizziness and adjust dosage if necessary - Reassure patient that PACs and SVT are not dangerous but can be a nuisance Dyspnea on Exertion Shortness of breath on exertion, likely related to diastolic dysfunction. Normal stress test and echocardiogram indicate normal pump function. Furosemide is used for symptomatic relief and blood pressure control. Discussed that furosemide can be taken on alternate days if symptoms are well controlled. - Continue furosemide 20 mg daily - Consider taking furosemide on alternate days if symptoms are well controlled - Monitor symptoms and adjust treatment as needed Hypertension Blood pressure has improved from previous readings of 170/92 to 138/80. Current medications includelosartan and furosemide. Adjustments to metoprolol were made due to hypotension and lightheadedness. Discussed the importance of maintaining blood pressure control to improve breathing and prevent symptoms. - Continue losartan 50 mg in the morning and 50 mg in the evening - Continue furosemide 20 mg daily - Monitor blood pressure and adjust medications as needed Aortic Stenosis Mild to moderate aortic stenosis noted on previous echocardiogram. No current symptoms attributableto aortic stenosis. Discussed the need for repeat echocardiogram in one year to monitor progression. - Repeat echocardiogram in October 2024 to monitor aortic stenosis Hyperlipidemia Managed with atorvastatin. Most recent chemistry panel showed normal kidney function and electrolytes. - Continue atorvastatin 10 mg daily Follow-up - Schedule follow-up appointment after echocardiogram in October 2024. Follow Up: Return in about 7 months (around 11/01/2024) for Clinic Visit. | For: Clinic Visit Patient seen in longitudinal follow up of the above issues with assessment and plan as documented. VISIT SUMMARY: Today, we reviewed your ongoing symptoms of tachycardia and shortness of breath. We discussed the results of your recent heart monitor, which showed episodes of supraventricular tachycardia (SVT) andpremature atrial contractions (PACs). We also reviewed your current medications and made some adjustments to better manage your symptoms and blood pressure. Additionally, we discussed your aortic stenosis and the plan for a follow-up echocardiogram next year. Your blood pressure and cholesterol levels were also reviewed, and your current treatments for these conditions were continued. YOUR PLAN: -SUPRAVENTRICULAR TACHYCARDIA (SVT): SVT is a condition where the heart suddenly beats much faster than normal due to issues with the heart's electrical system. We will continue your metoprolol at 50mg in the morning and add 12.5 mg in the evening to help manage your symptoms. Please monitor for any lightheadedness or dizziness and let us know if these occur. -DYSPNEA ON EXERTION: This refers to shortness of breath during physical activity, likely due to your heart's diastolic dysfunction. We will continue your furosemide at 20 mg daily, but you can take it on alternate days if your symptoms are well controlled. Please monitor your symptoms and adjust as needed. -HYPERTENSION: Hypertension is high blood pressure. Your blood pressure has improved, and we will continue your current medications: losartan at 50 mg in the morning and 50 mg in the evening, and furosemide at 20 mg daily. Please keep monitoring your blood pressure. -AORTIC STENOSIS: Aortic stenosis is a narrowing of the heart's aortic valve. You have mild to moderate aortic stenosis, and we will repeat an echocardiogram in October 2024 to monitor its progression. -HYPERLIPIDEMIA: Hyperlipidemia is high cholesterol. We will continue your atorvastatin at 10 mg daily to manage this condition. INSTRUCTIONS: Please schedule a follow-up appointment after your echocardiogram in October 2024. Continue monitoringyour symptoms and blood pressure, and adjust your medications as discussed. If you experience any new or worsening symptoms, please contact our office. Blue Mckeon, DO Cardiology, [address] [place] [address] Text in this note was generated using an ambient documentation service. I discussed the use of a device to record and summarize our discussion today. All persons present during the encounter consented to its use. documented in this encounter Nursing Notes * Jamila Bhatti CMA - 04/03/2024 10:08 AM EST Examination Room: 10 Name: Barbara Wilks Date of : (1940). Reason for Visit: 3 month rtc Interim Hospitalization(s): denies Problems/Concerns: See below Chest Pain/SOB: Reports SOB and tachycardia are worsening. Says it's not as bad as it has been in the past. Does report it was getting better, less SOB and no tachycardia, said she "didn't notice" her heart, the first 3 weeks of March and recently started worsening again. [facility] Discussed: Not applicable My [employer] is a way you can talk to your provider online through e-mail. Would you like to sign up? I can activate it for you? ALREADY ACTIVE Patient was instructed to not get up on the exam table until directed and assisted by their provider; patient is to remain seated in the chair/ wheelchair/ exam table for fall prevention and safety reasons. Patient is aware to have assistance to step down off exam table with personnel. Patient voiced full comprehension of instructions. documented in this encounter Plan of Treatment Upcoming Encounters Date Type Department Care Team (Late st Contact Info) Description 10/08/2024 9:30 AM EDT Cardiac Studies Cardiac Studies, [facility] [address] [place] [id number] 11/03/2024 10:00 AM EDT Office Visit Cardiology, [facility] [address] [place] [id number] Abrahan Carpio PA-C [address] [place] [address] Scheduled Orders Name Type Priority Associated Diagnoses Orde r Schedule EKG EKG Routine Primary hypertension Palpitations Ordered: 04/03/2024 ECHO, COMPLETE (2D), TRANS-THORACIC Echocardiology Routine Nonrheumatic aortic valve stenosis Expected: 10/06/2024 (Approximate), Expires: 04/03/2025 Health Maintenance Due Date Last Done Comments [...] as of this encounter Visit Diagnoses Diagnosis Palpitations- Primary PSVT (paroxysmal supraventricular tachycardia) (HCC) Paroxysmal supraventricular tachycardia Primary hypertension Unspecified essential hypertension RANDALL (dyspnea on exertion) Other dyspnea and respiratory abnormality Dyslipidemia, goal LDL below 70 Other and unspecified hyperlipidemia Nonrheumatic aortic valve stenosis Aortic valve disorders documented in this encounter Care Teams Orthodontic Technician Relationship Specialty Start Date End Date Stevie Mcclain DO PCP - General Family Medicine 10/31/23 documented as of this encounter
[2024-07-28] MEDS: ACETAMINOPHEN 325 MG TAB PO PRN (20:36)
[2024-07-28] MEDS: LOSARTAN POTASSIUM 50 MG TAB PO SCH (20:36)
[2024-07-28] MEDS: LIDOCAINE 2% JELLY 5 ML TUBE EXT PRN (21:52)
--- OUTSIDE RECORDS SUMMARY | 2024-07-29 04:28 | External Medical Summary | Summary of Care ---
Author Name Unknown Organization [facility] Address [address] [place] [address] Phone [phone] Care Team Providers Care Chain Maker Hand Name Role Phone Stevie Mares DO Primary Care Provider + Reason for Visit * Reason Comments Follow Up Encounter Details Date Type Department Care Team (Latest Contact Info) Description 07/28/2024 10:30 AM EDT Office Visit Cardiology, [facility] [address] [place] [phone] Blue Mckeon DO [address] [place] [id number] Symptomatic bradycardia*; CHB (complete heart block) (HCC); PSVT (paroxysmal supraventricular tachycardia) (HCC); Palpitations; Hypertensive urgency Allergies Active Allergy Reactions Criticality Noted Date Comments Chlorthalidone Other (Please comment) Low 4 Headache Codeine Unknown Medium 12/17/2023 Cephalexin Unknown Medium 12/17/2023 Nitrofurantoin Unknown Medium 12/17/2023 Sulfa Antibiotics Unknown Medium 12/17/2023 Sulfamethoxazole Unknown Medium 12/17/2023 documented as of this encounter (statuses as of 07/28/2024) Medications Ipratropium [place]suba 0.03 % Nasal Solution (Atrovent) Administer 2 [...] mg by mouth in the morning. Active Hojoki Gummy 50-45-3.8 MG Oral Tablet Chewable (Elderberry-Vit paul C-Zinc) Take by mouth. Ac tive Furosemide 20 MG Oral Tablet (Lasix) Take 1 Tablet by mouth in the morning. 90 Tablet 3 4 Active Metoprolol Succinate ER 50 MG Oral Tablet Extended Release 24 Hour (Toprol XL) One tablet by mouth daily 90 Tablet 3 4 Active Tobramycin-dexA METHasone 0.3-0.1 [...] Tablet by mouth in the morning. Active documented as of this encounter (statuses as of 07/28/2024) Active Problems No known active problems documented as of this encounter (statuses as of 07/28/2024) Immunizations Name Administration Dates Next Due Seasonal [...] Sign Reading Time Taken Comments Blood Pressure 225/91 07/28/2024 10:49 AM EDT el ectronic cuff Pulse 39 07/28/2024 10:49 AM EDT elec tronic cuff Temperature - - Respiratory Rate 18 07/28/2024 10:41 AM EDT Oxygen Saturation - - Inhaled Oxygen Concentration - - Weight 59.9 kg (132 lb) 07/28/2024 10:41 AM EDT Height - - Body Mass Index - - documented in this encounter Progress Notes * Blue Mckeon, - 07/28/2024 11:37 AM EDT Addendum: I spoke to the emergency room provider, Dr. Sprague at [facility] on the phone and provided report on the patient. Also, the patient does have a history of [id number] aortic valve stenosis. A repeat echocardiogram will be obtained during her hospital stay for reassessment. Blue Mckeon DO 07/28/2024 11:38 AM * Blue Mckeon DO - 07/28/2024 10:52 AM EDT Cardiology Follow Up Note [facility] [place] 07/28/2024 PCP: STEVIE MARES History of Present Illness Barbara Wilks is an 83 year old female with supraventricular tachycardia who presents with worsening shortness of breath and tachycardia. She has a accompanied by her son, Camilo. Over the past three to four weeks, she has experienced worsening shortness of breath, particularly noticeable when walking up a flight of stairs. This exertional dyspnea is accompanied by lightheadedness and a sensation of potential syncope, although she has not actually fainted. She needs to sit down after climbing stairs due to heavy breathing and lightheadedness. She has a history of supraventricular tachycardia and was evaluated in October, undergoing an echocardiogram and a nuclear stress test. Her symptoms have worsened compared to six months ago, with increased shortness of breath and a sensation of rapid heartbeat. She experiences tachycardia every morning upon waking and can feel and see her heart beating rapidly. This morning, she felt a fast heartbeat and shortness of breath after walking from the parking lot to the clinic. Her current medications include losartan 50 mg taken in the morning and evening, and metoprolol succinate 50 mg daily, which was adjusted from atenolol due to previous episodes of supraventricular tachycardia. She also takes a low dose of furosemide, which was added in January 2024 for shortness ofbreath related to diastolic dysfunction. No recent illness with fever, tick bites, or significant alcohol consumption. She has a history of cataracts but no recent changes in vision or headaches. She has never been a smoker and has minimal alcohol consumption history. Review of Systems: All systems reviewed & are unremarkable except as noted in HPI & below Social History: Social History Socioeconomic History Marital status: Occupational History Retired Tobacco Use Smoking status: Never Smokeless tobacco: Never Substance and Sexual Activity Alcohol use: None Allergies: Codeine, Keflex [cephalexin], Macrobid [nitrofurantoin], Sulfa antibiotics, Sulfamethoxazole, and Chlorthalidone Medications: Current Outpatient Medications Medication Sig Dispense Refill Sertraline HCl 50 MG Oral Tablet (Zoloft) [...] 50 mg by mouth in the morning. Hojoki Gummy 50-45-3.8 MG Oral Tablet Chewable (Ellevation- Vitamin C-Zinc) Take by mouth. Furosemide 20 MG Oral Tablet (Lasix) Take 1 Tablet by mouth in the morning. 90 Tablet 3 Metoprolol Succinate ER 50 MG Oral Tablet Extended Release 24 Hour (Toprol XL) One tablet by mouth daily 90 Tablet 3 Tobramycin-dexAMETHasone 0.3-0.1 % Ophthalmic Suspension Instill 1 Drop into the left eye in the morning and 1 Drop at noon and 1 Drop before bedtime. Shake bottle gently before each use. 5 mL 0 Losartan Potassium 100 MG Oral Tablet (Cozaar) Take 0.5 Tablets by mouth in the morning and 0.5 Tablets before bedtime. 90 Tablet 3 Rosuvastatin Calcium 10 MG Oral Tablet (Crestor) Take 1 Tablet by mouth in the morning. Ipratropium Toomsuba 0.03 % Nasal Solution (Atrovent) Administer 2 Sprays into nostril at bedtime. (Patient not taking: Reported on 12/17/2023) LORazepam 0.5 MG Oral Tablet (Ativan) Take 1 Tablet by mouth as needed for Anxiety. (Patient not taking: Reported on 04/03/2024) Fluticasone Propionate 50 MCG/ACT Nasal Suspension (Flonase) Administer 2 Sprays into nostril in the morning. (Patient not taking: Reported on 07/28/2024) Zafirlukast 20 MG Oral Tablet (Accolate) Take 1 Tablet by mouth in the morning and 1 Tablet before bedtime. With meals. (Patient not taking: Reported on 04/03/2024) No current facility-administered medications for this visit. OBJECTIVE/PHYSICAL EXAMINATION: BP 225/91 Comment: electronic cuff | Pulse 39 Comment: electronic cuff | Resp 18 | Wt 59.9 kg (132 lb) BP Readings from Last 4 Encounters: 07/28/24 225/91 04/03/24 138/80 12/17/23 174/92 General: no acute distress and stated age Eyes: conjunctiva are pink and non-injected, sclera clear Neck: normal jugular venous pulse, no hepatojugular reflux Chest: normal shape and normal respiratory effort Lungs: clear to auscultation and percussion Cardiac Exam: - regular heart sounds, no murmurs, rubs, or gallops Abdomen: abdomen soft, non-tender, no abnormal masses and no hepatosplenomegaly Musculoskeletal: no gait disturbance, no weakness Extremities: no edema and no cyanosis Neuro: grossly normal exam Psych: appropriate affect and insight. Data: EKG performed today 07/28/2024 and interpreted independently: Third-degree heart block with junctional rhythm at 39 beats per minute, nonspecific repolarization abnormalities. -compared to the previous EKG performed 04/03/2024, sinus bradycardia at 50 beats per minute was observed at that time. Summary of Zio patch worn for 7 days, 12/17/2023: The predominant rhythm was sinus rhythm with average rate of 64 beats per minute. Eighty-eight episodes of supraventricular tachycardia were observed, the longest of which was 18 beats in duration with average rate of 111 beats per minute. Isolated premature atrial contractions were of moderate frequency, 2.7% premature atrial contraction burden Isolated ventricular ectopic beats were rare, accounting for less than 1% of the total QRS complexes Symptoms correlated with supraventricular ectopy, sinus rhythm and brief runs of supraventricular tachycardia. Transthoracic echocardiogram performed 10/29/2023 at [facility]: Mild concentric left ventricular hypertrophy [id number] aortic valve stenosis Mild aortic regurgitation Mild mitral regurgitation With normal left atrial size LVEF normal 55-60% Right ventricular systolic pressure in the range of 30 to 40 millimeters Hg -no comment was made with regards to assessment of left ventricular diastolic function. Summary of pharmacologic nuclear stress test performed 11/25/2023, [facility], interpreted by Dr Mukherjee: Normal Lexiscan myocardial perfusion imaging study without evidence of ischemia or scar Normal gated wall motion, LVEF > 70% The resting blood pressure at the time of the study was 166/94 with maximum blood pressure of 181/92 Assessment & Plan Complete heart block Complete heart block identified on EKG with a heart rate of 39 bpm. Atrioventricular dissociation is present, leading to bradycardia. Metoprolol is suspected to contribute to the block by slowing atrioventricular conduction. Lyme disease is considered unlikely due to age and medication history. - Admit for monitoring of heart rate and blood pressure. - Discontinue metoprolol and observe heart rate response. - Consider pacemaker placement based on heart rate response post-metoprolol cessation. - Coordinate with emergency department, inpatient Cardiology team, and electrophysiology. Dyspnea on exertion Worsening dyspnea on exertion over the past 3-4 weeks, likely related to complete heart block and bradycardia. Previous furosemide use for diastolic dysfunction provided initial relief but is currently ineffective. - Monitor respiratory status during hospitalization. Supraventricular tachycardia Supraventricular tachycardia with 88 episodes recorded on prior heart monitor. Metoprolol was prescribed to manage these episodes. Concern exists for recurrence of palpitations upon metoprolol discontinuation. - Monitor for recurrence of supraventricular tachycardia post-metoprolol discontinuation. -anticipate need for pacemaker to allow reintroduction of beta-miriam Hypertension Perhaps compensatory given the bradycardia. Previous blood pressure readings were normal. - Monitor blood pressure during hospitalization and manage with alternative medications that do notaffect heart rate such as IV hydralazine if necessary . Patient advised to call with any questions or concerns and to report to the ER with any and all emergencies. Disposition: To be determined post hospital . Blue Mckeon DO Cardiology, [facility] [address] [place] [phone] This chart was completed in part utilizing [employer] Speech Voice Recognition Software. Grammatical errors, random word insertions, prounoun errors, and incomplete sentences are an occasional consequence of this system due to software limitations, ambient noise, and hardware issues. Any formal questions or concerns about the content, text, or information contained within the body of this dictation should be directly addressed to the provider for clarification. I spent a total of 40-54 minutes (exact time 50 mins) on the date of service in preparation, delivery, and documentation of the care provided to Barbara Wilks excluding any time spent in the performance of separately billed services or time spent by another provider/QHP. Text in this note was generated using an ambient documentation service. I discussed the use of a device to record and summarize our discussion today. All persons present during the encounter consented to its use. documented in this encounter Procedure Notes * Blue Mckeon DO - 07/28/2024 10:51 AM EDTAssociated Order(s): EKG REASON FOR STUDY: [id number] CONCLUSIONS: Sinus rhythmwith complete heart blockandJunctional bradycardia Nonspecific ST abnormality Abnormal ECG When compared with ECG [id number] 10:27, Junctional rhythmhas replacedSinus rhythm Vent. ratehas decreasedby 19bpm Questionable change inThe axis ST now depressed inInferior leads Ventricular Rate: 39 Atrial Rate: 70 QRS Duration: 72 QT/QTc: 516/415 ms P-R-T [place]: 83 : -21 : 54 degrees documented in this encounter Nursing Notes * Marilee Foster LPN - 07/28/2024 10:49 AM EDT Examination Room: 12 Name: Barbara Wilks Date of : 1940 Reason for Visit: Follow up Problems/Concerns: Appt from tele enc. Worsening SOB, palpitations Interim Hosp(s): denies Chest Pain/SOB: Denies CP, only symptomatic with SOB MyChart Discussed: ALREADY ACTIVE Patient was instructed to not get up on the exam table until directed and assisted by their provider; patient is to remain seated in the chair/ wheelchair/ exam table for fall prevention and safety reasons. Patient is aware staff will assist stepping down off exam table with personnel. documented in this encounter Plan of Treatment Upcoming Encounters Date Type Department Care Team (Late st Contact Info) Description 10/08/2024 9:30 AM EDT Cardiac Studies Cardiac Studies, [facility] [address] [place] [phone] 11/03/2024 10:00 AM EDT Office Visit Cardiology, [facility] [address] [place] [phone] Abrahan Carpio PA-C [address] [place] [id number] Health Maintenance Due Date Last Done Comments [...] Not on filedocumented as of this encounter Procedures Procedure Name Priority Date/Time Associated Diagnosis Comments HC ECG TRACING ONLY Routine 07/28/2024 10:51 AM EDT Palpitations PSVT (paroxysmal supraventricular tachycardia) ([facility]) documented in this encounter Results * EKG (07/28/2024 10:51 AM EDT) 07/28/2024 10:5 1 AM EDT Narrative Procedure Note Blue Mckeon DO - 07/28/2024 10:51 AM EDT REASON FOR STUDY: [id number] CONCLUSIONS: Sinus rhythmwith complete heart blockandJunctional bradycardia Nonspecific ST abnormality Abnormal ECG When compared with ECG [id number] 10:27, Junctional rhythmhas replacedSinus rhythm Vent. ratehas decreasedby 19bpm Questionable change inThe axis ST now depressed inInferior leads Ventricular Rate: 39 Atrial Rate: 70 QRS Duration: 72 QT/QTc: 516/415 ms P-R-T [place]: 83 : -21 : 54 degrees us Blue Mckeon DO EKG Final Result Performing Organization Address City/State/[facility] [place] Phone Number [facility] documented in this encounter Visit Diagnoses Diagnosis Symptomatic bradycardia- Primary Other specified cardiac dysrhythmias CHB (complete heart block) (HCC) Atrioventricular block, complete PSVT (paroxysmal supraventricular tachycardia) (HCC) Paroxysmal supraventricular tachycardia Palpitations Hypertensive urgency Unspecified essential hypertension documented in this encounter Care Teams Chain Maker Hand Relationship Specialty Start Date End Date Stevie Mares DO PCP - General Family Medicine 10/31/23 documented as of this encounter"
[2024-07-29] MEDS: hydrALAZINE HCL 20 MG/ML VIAL IV PRN (05:08)
[2024-07-29 06:04] LABS: Basophils # (auto) 0.05 K/uL (0.00-0.20); Basophils % (auto) 0.6 %; Eosinophils # (auto) 0.11 K/uL (0.00-0.50); Eosinophils % (auto) 1.3 %; Hematocrit (blood only) 44.3 % (37.0-47.0); Hemoglobin 14.8 g/dl (12.0-16.0); Immature Granulocytes # (auto) 0.03 K/uL (0.01-0.20); Immature Granulocytes % (auto) 0.4 %; Lymphocytes % (auto) 16.7 %; Mean Corpuscular Hgb Conc 33.4 g/dL (32.0-36.0); Mean Corpuscular Volume 92.7 fL (80.0-100.0); Mean Platelet Volume 9.7 fL (9.4-12.4); Monocytes # (auto) 0.84 K/uL (0.11-0.59); Neutrophils # (auto) 5.96 K/uL (1.40-6.50); Platelet Count 234 K/uL (130-400); RDW Coefficient of Variation 13.5 % (11.5-14.5); RDW Standard Deviation 45.8 fL (36.4-46.3); Red Blood Count 4.78 M/uL (4.20-5.40); White Blood Count 8.39 K/ul (4.8-10.8)
[2024-07-29 06:18] LABS: Albumin Level 3.4 gm/dl (3.4-5.0); Bilirubin,Total 1.6 mg/dl (0.2-1.0); Calcium 9.4 mg/dl (8.6-10.3); Creatinine Clr Calc Pharmacy 54.2 ml/min; Globulin 3.5 gm/dl (2.5-4.0); Magnesium 2.1 mg/dl (1.7-2.4); Phosphorus 2.9 mg/dl (2.5-4.9); Potassium 4.2 mmol/L (3.5-5.1); Total Protein 6.9 gm/dl (6.0-8.3)
[2024-07-29] MEDS: ONDANSETRON INJ 2 MG/ML 2 ML VIAL IV PRN (07:55)
--- NOTE | 2024-07-29 08:24 | Critical Care Progress Note ---
Date of Service July 29, 2024 Assessment & Plan (1) Generalized anxiety disorder: (2) Uncontrolled hypertension: (3) Coronary artery calcification: (4) Aortic stenosis: (5) Bradycardia: (6) Third degree heart block: (7) Dyspnea on exertion: Plan Pt is an 83 yo female presenting with 3rd degree heart block and hypertensive urgency. She was given IV hydralazine in ED. BP is under control at this time and she is externally paced. Pt is scheduled for pacemaker placement on 07/29/24. CV- Pt is hemodynamically stable at this time despite 3rd degree heart block. Pt to continue on external pacer until procedure later this morning. BP is under control, therefore plan to continue her home dose of PO losartan and furosemide. Will continue to monitor via telemetry. Pulmonary- Chest XR from ED is clear. No signs of pulmonary pathology Renal- Kidney function is normal and electrolytes are in balance. No need for renal intervention at this time Endocrine: TSH was assessed and found to be normal. No interventions needed ID: Lyme antibody is negative. No signs of infection at this time Prognosis: Good. Following pacemaker placement, pt likely to be monitored in PCU tele. Admission and Anticipated Discharge Date Admission Date: July 28, 2024 Supervising Physician Co-Signing Physician Notes Patient seen and examined. EMR reviewed. Discussed with bedside critical care nurse as well as on multidisciplinary rounds and with family practice resident. Reviewed with overnight critical care ALF. Agree with assessment plan as noted. Patient is relatively asymptomatic currently and pending placement of a permanent pacemaker. Continue external pacing pads. Once the patient's pacemaker is in place and functioning, she will no longer require critical care and will sign off. Disposition per primary admitting service. Subjective Pt reports feeling SOB and mild nausea earlier this morning when using the bed de [place]. but denies CP, dizziness, syncope, or vomiting. She notes resolution of SOB after BM with only mild nausea remaining. Pt is anxious about her upcoming procedure. Review of Systems Review of Systems: As per HPI Physical Exam Constitutional: well developed and comfortable; no acute distress Eyes: PERRL, conjunctivae normal, anicteric sclerae ENMT: external ear and nose normal, oropharynx normal Respiratory: normal respiratory effort, lungs clear to auscultation Cardiovascular: Rate/Rhythm: + bradycardic Extremities: no edema Gastrointestinal (Abdomen): normal bowel sounds, soft, nontender, no hepatosplenomegaly Skin: no rashes, warm and dry Neurologic: PERRL, EOMI, accommodation nl, no face palsy, no dysarthria Psychiatric: Orientation: alert and oriented x 3 Results & Data Results & Data Vital Signs (Past 12 Hours) Vital Signs Temp Pulse Resp BP Pulse Ox O2 Del Method 07/29/24 08:12 Room Air 07/29/24 08:11 36.6 C 07/29/24 08:00 37 L 19 93 07/29/24 08:00 156/49 H 07/29/24 07:31 129/51 L 07/29/24 07:30 37 L 24 93 07/29/24 07:15 129/51 L 07/29/24 07:15 129/51 L 07/29/24 07:15 37 L 21 93 07/29/24 07:14 Room Air 07/29/24 07:13 37 L 07/29/24 07:12 37 L 19 93 07/29/24 07:00 127/52 L 07/29/24 06:46 135/48 L 07/29/24 06:16 138/55 L 07/29/24 06:15 39 L 18 93 07/29/24 06:12 38 L 16 93 07/29/24 06:01 151/58 H 07/29/24 06:01 151/58 H 07/29/24 05:45 133/50 L 07/29/24 05:45 133/50 L 07/29/24 05:31 132/51 L 07/29/24 05:31 132/51 L 07/29/24 05:31 132/51 L 07/29/24 05:24 36 L 21 94 07/29/24 05:01 181/67 H 07/29/24 05:01 181/67 H 07/29/24 05:00 36 L 24 95 07/29/24 04:57 35 L 19 94 07/29/24 04:36 35 L 21 94 07/29/24 04:12 35 L 22 92 07/29/24 04:00 36.6 C 07/29/24 04:00 169/59 H 07/29/24 04:00 169/59 H 07/29/24 04:00 35 L 18 95 07/29/24 03:42 35 L 20 94 07/29/24 03:21 35 L 21 94 07/29/24 03:12 35 L 23 94 07/29/24 03:00 151/60 H 07/29/24 03:00 151/60 H 07/29/24 03:00 151/60 H 07/29/24 03:00 35 L 20 94 07/29/24 02:57 35 L 22 94 07/29/24 02:42 47 L 16 94 07/29/24 02:15 47 L 18 93 07/29/24 02:06 35 L 21 94 07/29/24 01:42 36 L 12 94 07/29/24 01:33 35 L 19 93 07/29/24 01:24 35 L 21 93 07/29/24 01:18 35 L 22 93 07/29/24 01:00 145/55 H 07/29/24 01:00 145/55 H 07/29/24 01:00 145/55 H 07/29/24 01:00 35 L 19 94 07/29/24 00:54 35 L 21 94 07/29/24 00:42 35 L 22 92 07/29/24 00:27 35 L 24 93 07/29/24 00:00 36.5 C 07/29/24 00:00 39 L 17 95 07/28/24 23:27 36 L 18 94 07/28/24 23:18 36 L 21 94 07/28/24 23:14 36 L 07/28/24 23:00 155/58 H 07/28/24 22:51 36 L 18 94 07/28/24 22:48 36 L 17 93 07/28/24 22:33 46 L 23 93 07/28/24 22:15 37 L 19 93 07/28/24 22:00 37 L 16 94 07/28/24 21:54 37 L 21 94 07/28/24 21:42 42 L 13 94 07/28/24 21:30 38 L 18 95 07/28/24 21:24 45 L 21 95 07/28/24 21:12 41 L 22 94 07/28/24 21:01 185/70 H 07/28/24 21:01 185/70 H 07/28/24 21:01 185/70 H 07/28/24 21:00 37 L 14 95 07/28/24 20:45 37 L 14 95 07/28/24 20:36 38 L 19 94 07/28/24 20:31 191/64 H 07/28/24 20:27 38 L 20 95 Laboratory Results Abnormal lab results 07/28/24 07/29/24 Range/Units 12:05 05:20 Hct 48.8 H (37.0-47.0) % RDW Std Deviation 47.4 H (36.4-46.3) fL Lymph # (Auto) 0.99 L (1.20-3.40) K/uL Ballard # (Auto) 0.61 H 0.84 H (0.11-0.59) K/uL Chloride 109 H (98-107) mmol/L BUN/Creatinine Ratio 23.8 H 25.0 H (10-20) Total Bilirubin 1.4 H 1.6 H (0.2-1.0) mg/dl Alkaline Phosphatase 126 H (34-104) U/L Total Protein 8.5 H (6.0-8.3) gm/dl Globulin 4.3 H (2.5-4.0) gm/dl Resident Activity Tracking Resident Involvement: Resident Care Provided Care Provided: Adult Hospital Medicine (4) Aortic stenosis Cardiac valve disease etiology: nonrheumatic Qualified Code(s): I35.0 - Nonrheumatic aortic (valve) stenosis
[2024-07-29] MEDS: CALCIUM 600MG + VIT D 400 IU TAB PO SCH (09:11)
[2024-07-29] MEDS: FUROSEMIDE 20 MG TAB PO SCH (09:11)
[2024-07-29] MEDS: ROSUVASTATIN CALCIUM 10 MG TAB PO SCH (09:11)
[2024-07-29] MEDS: ASCORBIC ACID 500 MG TAB PO SCH (09:11)
--- NOTE | 2024-07-29 10:30 | Electrocardiogram Report ---
Test Reason : Blood Pressure : */* mmHG Vent. Rate : 35 BPM Atrial Rate : * BPM P-R Int : * ms QRS Dur : 68 ms QT Int : 566 ms P-R-T Axes : * 50 89 degrees QTcB Int : 432 ms Normal sinus rhythm with complete heart block Junctional escape rhythm Septal infarct (cited on or before 28-Jul-2024) Nonspecific T wave abnormality Abnormal ECG When compared with ECG of 28-Jul-2024 12:04, QRS axis Shifted right Nonspecific T wave abnormality now evident in Lateral leads Confirmed by Chico Beaver ([id number]) on 07/29/2024 10:30:02 AM Referred By: REFERRED SELF Confirmed By: Chico Beaver
--- NOTE | 2024-07-29 11:46 | Cardiology Progress Note ---
Date of Service July 29, 2024 Assessment & Plan (1) Third degree heart block: (2) Aortic stenosis: (3) Hypertensive urgency: Plan 83-year-old female admitted with complete heart block. Symptomatic with minimal exertion. Beta-miriam on hold, however, will require logterm treatment with AV tc blocking agents for management of PSVT and palpitations. Permanent pacemaker implantation recommended. Scheduled to proceed later today. Beta- miriam will be resumed post pacemaker implantation. 2D echo demonstrating moderate aortic valve stenosis. Recommend repeat 2D transthoracic echocardiogram in 6 to 12 months. Admission and Anticipated Discharge Date Admission Date: July 28, 2024 Subjective 83-year-old female seen and examined at bedside. Reports shortness of breath when moving to use commode earlier this morning. Asymptomatic deafness. Telemetry reveals complete heart block with ventricular rates ranging from 36 to 40 bpm. Blood pressure stable overnight. Review of Systems Review of Systems: All systems reviewed & are unremarkable except as noted in Subjective Physical Exam Constitutional: well nourished; no acute distress Respiratory: normal respiratory effort; no respiratory distress and no retractions Auscultation: no crackles, no rales, no rhonchi and no wheezes Cardiovascular: Rate/Rhythm: regular rate and + bradycardic Heart Sounds: normal S1, normal S2 and + murmur (2/6Systolic ejection murmur heard best at the right second intercostal spac) Gastrointestinal (Abdomen): Inspection/Auscultation: abdomen normal to inspection and normal bowel sounds; abdomen not distended Percussion/Palpation: abdomen soft; abdomen nontender, no guarding and abdomen not rigid Neurologic: CN's II-XI intact bilaterally and moves all extremities; no focal motor deficits Results & Data Vital Signs (Past 12 Hours) Vital Signs Temp Pulse Resp BP Pulse Ox O2 Del Method 07/29/24 11:35 36.8 C 07/29/24 11:01 122/49 L 07/29/24 10:54 36 L 24 93 07/29/24 10:48 36 L 17 91 07/29/24 10:30 129/51 L 07/29/24 10:12 36 L 21 93 07/29/24 10:06 36 L 19 92 07/29/24 10:01 110/57 L 07/29/24 09:51 40 L 15 93 07/29/24 09:36 35 L 17 94 07/29/24 09:30 139/52 L 07/29/24 09:30 139/52 L 07/29/24 09:24 39 L 20 94 07/29/24 09:00 129/52 L 07/29/24 09:00 36 L 15 94 07/29/24 08:33 36 L 18 93 07/29/24 08:31 122/45 L 07/29/24 08:27 36 L 14 93 07/29/24 08:12 Room Air 07/29/24 08:11 36.6 C 07/29/24 08:00 37 L 19 93 07/29/24 08:00 156/49 H 07/29/24 07:31 129/51 L 07/29/24 07:30 37 L 24 93 07/29/24 07:15 129/51 L 07/29/24 07:15 129/51 L 07/29/24 07:15 37 L 21 93 07/29/24 07:14 Room Air 07/29/24 07:13 37 L 07/29/24 07:12 37 L 19 93 07/29/24 07:00 127/52 L 07/29/24 06:46 135/48 L 07/29/24 06:16 138/55 L 07/29/24 06:15 39 L 18 93 07/29/24 06:12 38 L 16 93 07/29/24 06:01 151/58 H 07/29/24 06:01 151/58 H 07/29/24 05:45 133/50 L 07/29/24 05:45 133/50 L 07/29/24 05:31 132/51 L 07/29/24 05:31 132/51 L 07/29/24 05:31 132/51 L 07/29/24 05:24 36 L 21 94 07/29/24 05:01 181/67 H 07/29/24 05:01 181/67 H 07/29/24 05:00 36 L 24 95 07/29/24 04:57 35 L 19 94 07/29/24 04:36 35 L 21 94 07/29/24 04:12 35 L 22 92 07/29/24 04:00 36.6 C 07/29/24 04:00 169/59 H 07/29/24 04:00 169/59 H 07/29/24 04:00 35 L 18 95 07/29/24 03:42 35 L 20 94 07/29/24 03:21 35 L 21 94 07/29/24 03:12 35 L 23 94 07/29/24 03:00 151/60 H 07/29/24 03:00 151/60 H 07/29/24 03:00 151/60 H 07/29/24 03:00 35 L 20 94 07/29/24 02:57 35 L 22 94 07/29/24 02:42 47 L 16 94 07/29/24 02:15 47 L 18 93 07/29/24 02:06 35 L 21 94 07/29/24 01:42 36 L 12 94 07/29/24 01:33 35 L 19 93 07/29/24 01:24 35 L 21 93 07/29/24 01:18 35 L 22 93 07/29/24 01:00 145/55 H 07/29/24 01:00 145/55 H 07/29/24 01:00 145/55 H 07/29/24 01:00 35 L 19 94 07/29/24 00:54 35 L 21 94 07/29/24 00:42 35 L 22 92 07/29/24 00:27 35 L 24 93 07/29/24 00:00 36.5 C 07/29/24 00:00 39 L 17 95 Laboratory Results Cardiac Enzymes 07/28/24 07/29/24 Range/Units 12:05 05:20 AST 26 19 (13-39) U/L Troponin I High Sens 9.4 (0-14) pg/ml CBC 07/28/24 07/29/24 Range/Units 12:05 05:20 WBC 7.89 8.39 (4.8-10.8) K/ul RBC 5.12 4.78 (4.20-5.40) M/uL Hgb 16.0 14.8 (12.0-16.0) g/dl Hct 48.8 H 44.3 (37.0-47.0) % Plt Count 265 234 (130-400) K/uL Neut # (Auto) 6.12 5.96 (1.40-6.50) K/uL Lymph # (Auto) 0.99 L 1.40 (1.20-3.40) K/uL Bowie # (Auto) 0.61 H 0.84 H (0.11-0.59) K/uL Eos # (Auto) 0.09 0.11 (0.00-0.50) K/uL Baso # (Auto) 0.06 0.05 (0.00-0.20) K/uL Comprehensive Metabolic Panel 07/28/24 07/29/24 Range/Units 12:05 05:20 Sodium 141 139 (136-145) mmol/L Potassium 4.0 4.2 (3.5-5.1) mmol/L Chloride 105 109 H (98-107) mmol/L Carbon Dioxide 29 25 (21-32) mmol/L BUN 19 17 (6-23) mg/dl Creatinine 0.80 0.68 (0.6-1.2) mg/dl Glucose 93 90 (70-99(Fasting)) mg/dl Calcium 9.8 9.4 (8.6-10.3) mg/dl AST 26 19 (13-39) U/L ALT 22 16 (7-52) U/L Alkaline Phosphatase 126 H 99 (34-104) U/L Total Protein 8.5 H 6.9 (6.0-8.3) gm/dl Albumin 4.2 3.4 (3.4-5.0) gm/dl Intake and Output 07/28/24 07/29/24 07/29/24 22:59 06:59 14:59 Intake Total 50 / 50 Output Total 220 / 475 255 / 475 200 / 200 Balance -220 / -475 -255 / -475 -150 / -150 Intake: Oral 50 / 50 Output: Urine Amount (Catheter) 220 / 475 255 / 475 200 / 200 [place]/Indwelling 220 / 475 255 / 475 200 / 200 Other: Other Intake Source sip with meds Weight 60.8 kg 62.4 kg 62.4 kg Weight Measurement Method [facility] Patient Weight 07/30/24 06:59 Weight 62.4 kg (2) Aortic stenosis Cardiac valve disease etiology: nonrheumatic Qualified Code(s): I35.0 - Nonrheumatic aortic (valve) stenosis
--- NOTE | 2024-07-29 12:09 | Billing Data ---
Date of Service July 29, 2024 Coding Level of Care Code 20237 SUB INP/OBS CARE
--- NOTE | 2024-07-29 13:15 | Hospitalist Progress Note ---
Date of Service July 29, 2024 Assessment & Plan (1) Generalized anxiety disorder: (2) Uncontrolled hypertension: (3) Coronary artery calcification: (4) Aortic stenosis: (5) Bradycardia: (6) Third degree heart block: (7) Dyspnea on exertion: Plan The patient is a 83-year-old female who presented to the ED on 07/28/2024 after she was sent in by Dr. Hernandez to be in third-degree heart block Third-degree heart block: Reports progressive shortness of breath over the past few months, Found to have third-degree AV block; admitted to ICU for close monitoring Echo shows EF of 65 to 70% with mild concentric LVH. Moderate valvular aortic stenosis present Plan for permanent pacemaker placement today;Continue to hold metoprolol Monitor overnight; device interrogation in a.m. Hypertension; continue losartan; hold metoprolol Hx HLD: Continue statin Hx anxiety: Hold sertraline, avoid QT prolongation and third-degree heart block A total of 60 minutes was spent on chart review/ discussion with consultants/reviewing diagnostic data/facilitating plan of care Full code DVT prophylaxis: SCDs, hold off on AC with possible upcoming procedure Plan of care discussed with patient; agrees with the plan. Time spent evaluating patient, direct bedside care, chart review, placing orders, interpretation of diagnostic studies, discussion with consultants, patient, and family members, as well as other required patient management activities is 50 minutes Please note the above document was generated using voice recognition software. It may contain grammatical, syntax or spelling errors. Any formal questions or concerns about the content, text or information contained within the body of this dictation should be directly addressed to the provider for clarification Admission and Anticipated Discharge Date Admission Date: July 28, 2024 Subjective Patient seen and examined at bedside. She is sitting up comfortably; not in distress. Blood pressure within normal limits. Telemetry shows complete heart block. No significant events overnight Review of Systems Review of Systems: All systems reviewed & are unremarkable except as noted in Subjective Physical Exam Physical Exam: Constitutional: Alert oriented x 3; not in distress. Respiratory: normal respiratory effort, lungs clear to auscultation, no wheeze, rales, rhonchi. Normal insp/exp effort, no accessory muscle use Cardiovascular: RRR, no murmur, no edema Vessels: no JVD or carotid bruit Chest: normal inspection of chest Abdomen: normal bowel sounds, soft, nontender, no hepatosplenomegaly Musculoskeletal: no cyanosis or clubbing, extremities motor strength 5/5 Skin: no rashes, warm and dry normal turgor Neurologic: PERRL, EOMI, accommodation nl, no face palsy, no dysarthria CN's II- XI intact bilaterally and moves all extremities Psychiatric: A+Ox3, euthymic affect Results & Data Results & Data Vital Signs (Past 12 Hours) Vital Signs Temp Pulse Pulse Resp BP BP Pulse Ox 07/29/24 13:08 38 L 16 166/69 H 93 07/29/24 11:35 36.8 C 07/29/24 11:01 122/49 L 07/29/24 10:54 36 L 24 93 07/29/24 10:48 36 L 17 91 07/29/24 10:30 129/51 L 07/29/24 10:12 36 L 21 93 07/29/24 10:06 36 L 19 92 07/29/24 10:01 110/57 L 07/29/24 09:51 40 L 15 93 07/29/24 09:36 35 L 17 94 07/29/24 09:30 139/52 L 07/29/24 09:30 139/52 L 07/29/24 09:24 39 L 20 94 07/29/24 09:00 129/52 L 07/29/24 09:00 36 L 15 94 07/29/24 08:33 36 L 18 93 07/29/24 08:31 122/45 L 07/29/24 08:27 36 L 14 93 07/29/24 08:12 07/29/24 08:11 36.6 C 07/29/24 08:00 37 L 19 93 07/29/24 08:00 156/49 H 07/29/24 07:31 129/51 L 07/29/24 07:30 37 L 24 93 07/29/24 07:15 129/51 L 07/29/24 07:15 129/51 L 07/29/24 07:15 37 L 21 93 07/29/24 07:14 07/29/24 07:13 37 L 07/29/24 07:12 37 L 19 93 07/29/24 07:00 127/52 L 07/29/24 06:46 135/48 L 07/29/24 06:16 138/55 L 07/29/24 06:15 39 L 18 93 07/29/24 06:12 38 L 16 93 07/29/24 06:01 151/58 H 07/29/24 06:01 151/58 H 07/29/24 05:45 133/50 L 07/29/24 05:45 133/50 L 07/29/24 05:31 132/51 L 07/29/24 05:31 132/51 L 07/29/24 05:31 132/51 L 07/29/24 05:24 36 L 21 94 07/29/24 05:01 181/67 H 07/29/24 05:01 181/67 H 07/29/24 05:00 36 L 24 95 07/29/24 04:57 35 L 19 94 07/29/24 04:36 35 L 21 94 07/29/24 04:12 35 L 22 92 07/29/24 04:00 36.6 C 07/29/24 04:00 169/59 H 07/29/24 04:00 169/59 H 07/29/24 04:00 35 L 18 95 07/29/24 03:42 35 L 20 94 07/29/24 03:21 35 L 21 94 07/29/24 03:12 35 L 23 94 07/29/24 03:00 151/60 H 07/29/24 03:00 151/60 H 07/29/24 03:00 151/60 H 07/29/24 03:00 35 L 20 94 07/29/24 02:57 35 L 22 94 07/29/24 02:42 47 L 16 94 07/29/24 02:15 47 L 18 93 07/29/24 02:06 35 L 21 94 07/29/24 01:42 36 L 12 94 07/29/24 01:33 35 L 19 93 07/29/24 01:24 35 L 21 93 07/29/24 01:18 35 L 22 93 O2 Del Method 07/29/24 13:08 Room Air 07/29/24 11:35 07/29/24 11:01 07/29/24 10:54 07/29/24 10:48 07/29/24 10:30 07/29/24 10:12 07/29/24 10:06 07/29/24 10:01 07/29/24 09:51 07/29/24 09:36 07/29/24 09:30 07/29/24 09:30 07/29/24 09:24 07/29/24 09:00 07/29/24 09:00 07/29/24 08:33 07/29/24 08:31 07/29/24 08:27 07/29/24 08:12 Room Air 07/29/24 08:11 07/29/24 08:00 07/29/24 08:00 07/29/24 07:31 07/29/24 07:30 07/29/24 07:15 07/29/24 07:15 07/29/24 07:15 07/29/24 07:14 Room Air 07/29/24 07:13 07/29/24 07:12 07/29/24 07:00 07/29/24 06:46 07/29/24 06:16 07/29/24 06:15 07/29/24 06:12 07/29/24 06:01 07/29/24 06:01 07/29/24 05:45 07/29/24 05:45 07/29/24 05:31 07/29/24 05:31 07/29/24 05:31 07/29/24 05:24 07/29/24 05:01 07/29/24 05:01 07/29/24 05:00 07/29/24 04:57 07/29/24 04:36 07/29/24 04:12 07/29/24 04:00 07/29/24 04:00 07/29/24 04:00 07/29/24 04:00 07/29/24 03:42 07/29/24 03:21 07/29/24 03:12 07/29/24 03:00 07/29/24 03:00 07/29/24 03:00 07/29/24 03:00 07/29/24 02:57 07/29/24 02:42 07/29/24 02:15 07/29/24 02:06 07/29/24 01:42 07/29/24 01:33 07/29/24 01:24 07/29/24 01:18 (4) Aortic stenosis Cardiac valve disease etiology: nonrheumatic Qualified Code(s): I35.0 - Nonrheumatic aortic (valve) stenosis
--- NOTE | 2024-07-29 13:25 | Pre Anesthesia Assessment ---
Date of Service July 29, 2024 Pre Sedation Assessment Vital Signs Temp Pulse Pulse Resp BP BP Pulse Ox 07/29/24 13:08 38 L 16 166/69 H 93 07/29/24 11:35 36.8 C 07/29/24 11:01 122/49 L 07/29/24 10:54 36 L 24 93 07/29/24 10:48 36 L 17 91 07/29/24 10:30 129/51 L 07/29/24 10:12 36 L 21 93 07/29/24 10:06 36 L 19 92 07/29/24 10:01 110/57 L 07/29/24 09:51 40 L 15 93 07/29/24 09:36 35 L 17 94 07/29/24 09:30 139/52 L 07/29/24 09:30 139/52 L 07/29/24 09:24 39 L 20 94 07/29/24 09:00 129/52 L 07/29/24 09:00 36 L 15 94 07/29/24 08:33 36 L 18 93 07/29/24 08:31 122/45 L 07/29/24 08:27 36 L 14 93 07/29/24 08:12 07/29/24 08:11 36.6 C 07/29/24 08:00 37 L 19 93 07/29/24 08:00 156/49 H 07/29/24 07:31 129/51 L 07/29/24 07:30 37 L 24 93 07/29/24 07:15 129/51 L 07/29/24 07:15 129/51 L 07/29/24 07:15 37 L 21 93 07/29/24 07:14 07/29/24 07:13 37 L 07/29/24 07:12 37 L 19 93 07/29/24 07:00 127/52 L 07/29/24 06:46 135/48 L 07/29/24 06:16 138/55 L 07/29/24 06:15 39 L 18 93 07/29/24 06:12 38 L 16 93 07/29/24 06:01 151/58 H 07/29/24 06:01 151/58 H 07/29/24 05:45 133/50 L 07/29/24 05:45 133/50 L 07/29/24 05:31 132/51 L 07/29/24 05:31 132/51 L 07/29/24 05:31 132/51 L 07/29/24 05:24 36 L 21 94 07/29/24 05:01 181/67 H 07/29/24 05:01 181/67 H 07/29/24 05:00 36 L 24 95 07/29/24 04:57 35 L 19 94 07/29/24 04:36 35 L 21 94 07/29/24 04:12 35 L 22 92 07/29/24 04:00 36.6 C 07/29/24 04:00 169/59 H 07/29/24 04:00 169/59 H 07/29/24 04:00 35 L 18 95 07/29/24 03:42 35 L 20 94 07/29/24 03:21 35 L 21 94 07/29/24 03:12 35 L 23 94 07/29/24 03:00 151/60 H 07/29/24 03:00 151/60 H 07/29/24 03:00 151/60 H 07/29/24 03:00 35 L 20 94 07/29/24 02:57 35 L 22 94 07/29/24 02:42 47 L 16 94 07/29/24 02:15 47 L 18 93 07/29/24 02:06 35 L 21 94 07/29/24 01:42 36 L 12 94 07/29/24 01:33 35 L 19 93 07/29/24 01:24 35 L 21 93 07/29/24 01:18 35 L 22 93 07/29/24 01:00 145/55 H 07/29/24 01:00 145/55 H 07/29/24 01:00 145/55 H 07/29/24 01:00 35 L 19 94 07/29/24 00:54 35 L 21 94 07/29/24 00:42 35 L 22 92 07/29/24 00:27 35 L 24 93 07/29/24 00:00 36.5 C 07/29/24 00:00 39 L 17 95 07/28/24 23:27 36 L 18 94 07/28/24 23:18 36 L 21 94 07/28/24 23:14 36 L 07/28/24 23:00 155/58 H 07/28/24 22:51 36 L 18 94 07/28/24 22:48 36 L 17 93 07/28/24 22:33 46 L 23 93 07/28/24 22:15 37 L 19 93 07/28/24 22:00 37 L 16 94 07/28/24 21:54 37 L 21 94 07/28/24 21:42 42 L 13 94 07/28/24 21:30 38 L 18 95 07/28/24 21:24 45 L 21 95 07/28/24 21:12 41 L 22 94 07/28/24 21:01 185/70 H 07/28/24 21:01 185/70 H 07/28/24 21:01 185/70 H 07/28/24 21:00 37 L 14 95 07/28/24 20:45 37 L 14 95 07/28/24 20:36 38 L 19 94 07/28/24 20:31 191/64 H 07/28/24 20:27 38 L 20 95 07/28/24 20:03 38 L 18 95 07/28/24 20:01 160/66 H 07/28/24 20:01 160/66 H 07/28/24 20:00 36.5 C 07/28/24 19:51 38 L 21 95 07/28/24 19:45 39 L 16 95 07/28/24 19:30 39 L 17 94 07/28/24 19:21 57 L 14 94 07/28/24 19:03 39 L 20 94 07/28/24 19:01 149/59 H 07/28/24 19:01 149/59 H 07/28/24 18:33 41 L 24 94 07/28/24 18:06 44 L 24 94 07/28/24 18:01 126/45 L 07/28/24 17:48 40 L 19 95 07/28/24 17:33 40 L 24 96 07/28/24 17:00 38 L 19 145/57 H 94 07/28/24 16:57 39 L 22 95 07/28/24 16:09 39 L 16 96 07/28/24 16:07 40 L 07/28/24 15:58 07/28/24 15:45 47 L 16 95 07/28/24 15:45 168/60 H 07/28/24 15:45 36.8 C 42 L 23 95 07/28/24 15:27 42 L 22 95 07/28/24 15:12 39 L 19 94 07/28/24 15:01 141/63 H 07/28/24 14:31 134/51 L 07/28/24 14:18 41 L 14 97 07/28/24 14:01 125/46 L 07/28/24 14:00 40 L 20 98 07/28/24 13:33 50 L 22 98 07/28/24 13:31 162/57 H Pulse Ox O2 Del Method O2 Del Method 07/29/24 13:08 Room Air 07/29/24 11:35 07/29/24 11:01 07/29/24 10:54 07/29/24 10:48 07/29/24 10:30 07/29/24 10:12 07/29/24 10:06 07/29/24 10:01 07/29/24 09:51 07/29/24 09:36 07/29/24 09:30 07/29/24 09:30 07/29/24 09:24 07/29/24 09:00 07/29/24 09:00 07/29/24 08:33 07/29/24 08:31 07/29/24 08:27 07/29/24 08:12 Room Air 07/29/24 08:11 07/29/24 08:00 07/29/24 08:00 07/29/24 07:31 07/29/24 07:30 07/29/24 07:15 07/29/24 07:15 07/29/24 07:15 07/29/24 07:14 Room Air 07/29/24 07:13 07/29/24 07:12 07/29/24 07:00 07/29/24 06:46 07/29/24 06:16 07/29/24 06:15 07/29/24 06:12 07/29/24 06:01 07/29/24 06:01 07/29/24 05:45 07/29/24 05:45 07/29/24 05:31 07/29/24 05:31 07/29/24 05:31 07/29/24 05:24 07/29/24 05:01 07/29/24 05:01 07/29/24 05:00 07/29/24 04:57 07/29/24 04:36 07/29/24 04:12 07/29/24 04:00 07/29/24 04:00 07/29/24 04:00 07/29/24 04:00 07/29/24 03:42 07/29/24 03:21 07/29/24 03:12 07/29/24 03:00 07/29/24 03:00 07/29/24 03:00 07/29/24 03:00 07/29/24 02:57 07/29/24 02:42 07/29/24 02:15 07/29/24 02:06 07/29/24 01:42 07/29/24 01:33 07/29/24 01:24 07/29/24 01:18 07/29/24 01:00 07/29/24 01:00 07/29/24 01:00 07/29/24 01:00 07/29/24 00:54 07/29/24 00:42 07/29/24 00:27 07/29/24 00:00 07/29/24 00:00 07/28/24 23:27 07/28/24 23:18 07/28/24 23:14 07/28/24 23:00 07/28/24 22:51 07/28/24 22:48 07/28/24 22:33 07/28/24 22:15 07/28/24 22:00 07/28/24 21:54 07/28/24 21:42 07/28/24 21:30 07/28/24 21:24 07/28/24 21:12 07/28/24 21:01 07/28/24 21:01 07/28/24 21:01 07/28/24 21:00 07/28/24 20:45 07/28/24 20:36 07/28/24 20:31 07/28/24 20:27 07/28/24 20:03 07/28/24 20:01 07/28/24 20:01 07/28/24 20:00 07/28/24 19:51 07/28/24 19:45 07/28/24 19:30 07/28/24 19:21 07/28/24 19:03 07/28/24 19:01 07/28/24 19:01 07/28/24 18:33 07/28/24 18:06 07/28/24 18:01 07/28/24 17:48 07/28/24 17:33 07/28/24 17:00 07/28/24 16:57 07/28/24 16:09 07/28/24 16:07 07/28/24 15:58 96 Room Air 07/28/24 15:45 07/28/24 15:45 07/28/24 15:45 Room Air 07/28/24 15:27 07/28/24 15:12 07/28/24 15:01 07/28/24 14:31 07/28/24 14:18 Room Air 07/28/24 14:01 07/28/24 14:00 Room Air 07/28/24 13:33 Room Air 07/28/24 13:31 Cardiovascular + bradycardic Respiratory normal respiratory effort, lungs clear to auscultation Pre-Sedation Airway Assessment Smoking Status: Never smoker Hx Sleep Apnea: No Short, Thick Neck: No Thyromental Distance: > or= 3.5 Finger Breadths Oral Cavity: + Dentures Mallampati Class: II ASA: ASA3 NPO Status Date of Last Intake of Fluids: 07/29/24 Time of Last Intake of Fluids: 00:00 Date of Last Intake of Solid Food: 07/29/24 Time of Last Intake of Solid Foods: 00:00 Procedure Planning Contraindications for Sedation: none Current Medications Reviewed: Yes Notes The planned sedation has been discussed with the patient. Informed Consent was obtained. I have identified the patient, determined the appropriateness of sedation and have assessed the patient immediately prior to the procedure. All medicine(s) and interventions are by my order.
--- NOTE | 2024-07-29 13:26 | History & Physical Bridge Note ---
Date of Service July 29, 2024 History & Physical Bridge Note I have examined the patient, reviewed the History & Physical and in the interval since the performance of the History & Physical I have noted the following changes of clinical significance: pt with [facility] recommended a pacemaker prior to hospital discharge; i discussed the procedure and potential risks with the patient; she expressed an understanding and consents signed.
[2024-07-29] MEDS: LIDOCAINE 1% LOCAL 20 ML VIAL ONE (15:03)
[2024-07-29] MEDS: fentaNYL citrate PF 100 MCG/2 ML VIAL ONE (15:04)
[2024-07-29] MEDS: MIDAZOLAM HCL 5 MG/ML 1 ML VIAL ONE (15:04)
[2024-07-29] MEDS: VANCOMYCIN HCL 1000MG/20ML VIAL ONE (15:04)
[2024-07-29] MEDS: ceFAZolin 330 MG/ML 1 GM VIAL ONE (15:04)
[2024-07-29] MEDS: WATER, STERILE FOR INJ 10 ML VIAL ONE (15:04)
[2024-07-29] MEDS: BUPIVACAINE 0.25% PF 30 ML VIAL ONE (15:04)
--- NOTE | 2024-07-29 15:23 | Post Anesthesia Assessment ---
Date of Service July 29, 2024 Post Sedation Assessment Vital Signs Temp Pulse Pulse Resp BP BP Pulse Ox 07/29/24 13:08 38 L 16 166/69 H 93 07/29/24 11:35 36.8 C 07/29/24 11:01 122/49 L 07/29/24 10:54 36 L 24 93 07/29/24 10:48 36 L 17 91 07/29/24 10:30 129/51 L 07/29/24 10:12 36 L 21 93 07/29/24 10:06 36 L 19 92 07/29/24 10:01 110/57 L 07/29/24 09:51 40 L 15 93 07/29/24 09:36 35 L 17 94 07/29/24 09:30 139/52 L 07/29/24 09:30 139/52 L 07/29/24 09:24 39 L 20 94 07/29/24 09:00 129/52 L 07/29/24 09:00 36 L 15 94 07/29/24 08:33 36 L 18 93 07/29/24 08:31 122/45 L 07/29/24 08:27 36 L 14 93 07/29/24 08:12 07/29/24 08:11 36.6 C 07/29/24 08:00 37 L 19 93 07/29/24 08:00 156/49 H 07/29/24 07:31 129/51 L 07/29/24 07:30 37 L 24 93 07/29/24 07:15 129/51 L 07/29/24 07:15 129/51 L 07/29/24 07:15 37 L 21 93 07/29/24 07:14 07/29/24 07:13 37 L 07/29/24 07:12 37 L 19 93 07/29/24 07:00 127/52 L 07/29/24 06:46 135/48 L 07/29/24 06:16 138/55 L 07/29/24 06:15 39 L 18 93 07/29/24 06:12 38 L 16 93 07/29/24 06:01 151/58 H 07/29/24 06:01 151/58 H 07/29/24 05:45 133/50 L 07/29/24 05:45 133/50 L 07/29/24 05:31 132/51 L 07/29/24 05:31 132/51 L 07/29/24 05:31 132/51 L 07/29/24 05:24 36 L 21 94 07/29/24 05:01 181/67 H 07/29/24 05:01 181/67 H 07/29/24 05:00 36 L 24 95 07/29/24 04:57 35 L 19 94 07/29/24 04:36 35 L 21 94 07/29/24 04:12 35 L 22 92 07/29/24 04:00 36.6 C 07/29/24 04:00 169/59 H 07/29/24 04:00 169/59 H 07/29/24 04:00 35 L 18 95 07/29/24 03:42 35 L 20 94 07/29/24 03:21 35 L 21 94 07/29/24 03:12 35 L 23 94 07/29/24 03:00 151/60 H 07/29/24 03:00 151/60 H 07/29/24 03:00 151/60 H 07/29/24 03:00 35 L 20 94 07/29/24 02:57 35 L 22 94 07/29/24 02:42 47 L 16 94 07/29/24 02:15 47 L 18 93 07/29/24 02:06 35 L 21 94 07/29/24 01:42 36 L 12 94 07/29/24 01:33 35 L 19 93 07/29/24 01:24 35 L 21 93 07/29/24 01:18 35 L 22 93 07/29/24 01:00 145/55 H 07/29/24 01:00 145/55 H 07/29/24 01:00 145/55 H 07/29/24 01:00 35 L 19 94 07/29/24 00:54 35 L 21 94 07/29/24 00:42 35 L 22 92 07/29/24 00:27 35 L 24 93 07/29/24 00:00 36.5 C 07/29/24 00:00 39 L 17 95 07/28/24 23:27 36 L 18 94 07/28/24 23:18 36 L 21 94 07/28/24 23:14 36 L 07/28/24 23:00 155/58 H 07/28/24 22:51 36 L 18 94 07/28/24 22:48 36 L 17 93 07/28/24 22:33 46 L 23 93 07/28/24 22:15 37 L 19 93 07/28/24 22:00 37 L 16 94 07/28/24 21:54 37 L 21 94 07/28/24 21:42 42 L 13 94 07/28/24 21:30 38 L 18 95 07/28/24 21:24 45 L 21 95 07/28/24 21:12 41 L 22 94 07/28/24 21:01 185/70 H 07/28/24 21:01 185/70 H 07/28/24 21:01 185/70 H 07/28/24 21:00 37 L 14 95 07/28/24 20:45 37 L 14 95 07/28/24 20:36 38 L 19 94 07/28/24 20:31 191/64 H 07/28/24 20:27 38 L 20 95 07/28/24 20:03 38 L 18 95 07/28/24 20:01 160/66 H 07/28/24 20:01 160/66 H 07/28/24 20:00 36.5 C 07/28/24 19:51 38 L 21 95 07/28/24 19:45 39 L 16 95 07/28/24 19:30 39 L 17 94 07/28/24 19:21 57 L 14 94 07/28/24 19:03 39 L 20 94 07/28/24 19:01 149/59 H 07/28/24 19:01 149/59 H 07/28/24 18:33 41 L 24 94 07/28/24 18:06 44 L 24 94 07/28/24 18:01 126/45 L 07/28/24 17:48 40 L 19 95 07/28/24 17:33 40 L 24 96 07/28/24 17:00 38 L 19 145/57 H 94 07/28/24 16:57 39 L 22 95 07/28/24 16:09 39 L 16 96 07/28/24 16:07 40 L 07/28/24 15:58 07/28/24 15:45 47 L 16 95 07/28/24 15:45 168/60 H 07/28/24 15:45 36.8 C 42 L 23 95 07/28/24 15:27 42 L 22 95 Pulse Ox O2 Del Method O2 Del Method 07/29/24 13:08 Room Air 07/29/24 11:35 07/29/24 11:01 07/29/24 10:54 07/29/24 10:48 07/29/24 10:30 07/29/24 10:12 07/29/24 10:06 07/29/24 10:01 07/29/24 09:51 07/29/24 09:36 07/29/24 09:30 07/29/24 09:30 07/29/24 09:24 07/29/24 09:00 07/29/24 09:00 07/29/24 08:33 07/29/24 08:31 07/29/24 08:27 07/29/24 08:12 Room Air 07/29/24 08:11 07/29/24 08:00 07/29/24 08:00 07/29/24 07:31 07/29/24 07:30 07/29/24 07:15 07/29/24 07:15 07/29/24 07:15 07/29/24 07:14 Room Air 07/29/24 07:13 07/29/24 07:12 07/29/24 07:00 07/29/24 06:46 07/29/24 06:16 07/29/24 06:15 07/29/24 06:12 07/29/24 06:01 07/29/24 06:01 07/29/24 05:45 07/29/24 05:45 07/29/24 05:31 07/29/24 05:31 07/29/24 05:31 07/29/24 05:24 07/29/24 05:01 07/29/24 05:01 07/29/24 05:00 07/29/24 04:57 07/29/24 04:36 07/29/24 04:12 07/29/24 04:00 07/29/24 04:00 07/29/24 04:00 07/29/24 04:00 07/29/24 03:42 07/29/24 03:21 07/29/24 03:12 07/29/24 03:00 07/29/24 03:00 07/29/24 03:00 07/29/24 03:00 07/29/24 02:57 07/29/24 02:42 07/29/24 02:15 07/29/24 02:06 07/29/24 01:42 07/29/24 01:33 07/29/24 01:24 07/29/24 01:18 07/29/24 01:00 07/29/24 01:00 07/29/24 01:00 07/29/24 01:00 07/29/24 00:54 07/29/24 00:42 07/29/24 00:27 07/29/24 00:00 07/29/24 00:00 07/28/24 23:27 07/28/24 23:18 07/28/24 23:14 07/28/24 23:00 07/28/24 22:51 07/28/24 22:48 07/28/24 22:33 07/28/24 22:15 07/28/24 22:00 07/28/24 21:54 07/28/24 21:42 07/28/24 21:30 07/28/24 21:24 07/28/24 21:12 07/28/24 21:01 07/28/24 21:01 07/28/24 21:01 07/28/24 21:00 07/28/24 20:45 07/28/24 20:36 07/28/24 20:31 07/28/24 20:27 07/28/24 20:03 07/28/24 20:01 07/28/24 20:01 07/28/24 20:00 07/28/24 19:51 07/28/24 19:45 07/28/24 19:30 07/28/24 19:21 07/28/24 19:03 07/28/24 19:01 07/28/24 19:01 07/28/24 18:33 07/28/24 18:06 07/28/24 18:01 07/28/24 17:48 07/28/24 17:33 07/28/24 17:00 07/28/24 16:57 07/28/24 16:09 07/28/24 16:07 07/28/24 15:58 96 Room Air 07/28/24 15:45 07/28/24 15:45 07/28/24 15:45 Room Air 07/28/24 15:27 Recovery Score Activity: Moves 4 extremities Respiration: Deep Breath/Cough Circulation: +/-20% PreAnes Value Consciousness: Fully Awake Oxygen Saturation: > 92% On Room Air Discharge Sedation Level of Care: Fast Track Phase II Post Sedation Plan On clinical assessment, the patient appears to have tolerated the sedation without complications. Patient is recovering as anticipated. Patient will continue to be monitored by nursing and may be discharged when sedation discharge criteria are met per below protocol. Upon Completions of procedure up to 15 minutes continue every 5 minute vital signs and the P.A.R. score; then discharge to a Phase I or Fast Track to Phase II per the following guidelines: * Discharge Patient to appropriate Phase II area if PAR is 8 or greater or return to pre- procedure baseline. The post - procedure orders will be as directed. * If PAR score is less than 8 or not return to pre-procedure baseline then patient will follow Phase I monitoring till PAR is reached for Phase II. The Phase I may be done in procedure room or may call to secure a Phase I area. * If naloxone or flumazenil are used for reversal, hold in Phase I for continued monitoring from when last reversal dose was given for a minimum of 60 minutes or longer pending the nurse and/or physician discretion of patient condition before discharge to Phase II. Please call the Sedation Physician to re-evaluate and complete post-note for discharge to Phase II area. Do NOT discharge from procedure sedation or Phase 1 until post- sedation evaluation note is complete by procedure /sedation MD Sedation Discharge Instructions to be given to the patient at discharge to home.
--- NOTE | 2024-07-29 15:41 | XRay Report ---
XR chest 1V portable CLINICAL HISTORY: Post Pacemaker COMPARISON STUDY: 07/28/2024 FINDINGS: There is an interval left-sided dual-lead pacemaker. No pneumothorax seen. No consolidation or pleural effusion. Heart size and pulmonary vasculature are normal. IMPRESSION: No pneumothorax seen. ACT 112: Negative or not required by law. Electronically signed by: Héctor Loera M.D. 07/29/2024 3:40 PM
[2024-07-30] MEDS: amLODIPine BESYLATE 5 MG TAB PO ONE (03:13)
[2024-07-30 05:16] LABS: Basophils # (auto) 0.04 K/uL (0.00-0.20); Basophils % (auto) 0.4 %; Eosinophils # (auto) 0.04 K/uL (0.00-0.50); Eosinophils % (auto) 0.4 %; Hematocrit (blood only) 42.2 % (37.0-47.0); Hemoglobin 13.9 g/dl (12.0-16.0); Immature Granulocytes # (auto) 0.03 K/uL (0.01-0.20); Immature Granulocytes % (auto) 0.3 %; Lymphocytes # (auto) 0.87 K/uL (1.20-3.40); Lymphocytes % (auto) 8.2 %; Mean Corpuscular Hemoglobin 30.9 pg (25.0-34.0); Mean Corpuscular Hgb Conc 32.9 g/dL (32.0-36.0); Mean Corpuscular Volume 93.8 fL (80.0-100.0); Mean Platelet Volume 9.9 fL (9.4-12.4); Monocytes # (auto) 0.96 K/uL (0.11-0.59); Neutrophils # (auto) 8.67 K/uL (1.40-6.50); Neutrophils % (auto) 81.7 %; Platelet Count 204 K/uL (130-400); RDW Coefficient of Variation 13.9 % (11.5-14.5); RDW Standard Deviation 47.2 fL (36.4-46.3); White Blood Count 10.61 K/ul (4.8-10.8)
[2024-07-30 05:29] LABS: BUN Creatinine Ratio 29.9 (10-20); Calcium 9.5 mg/dl (8.6-10.3); Creatinine Clr Calc Pharmacy 41.6 ml/min; Potassium 4.3 mmol/L (3.5-5.1)
[2024-07-30] MEDS: oxyCODONE HCL IR 5 MG TAB (IMMEDIATE RELEASE) PO STA (07:46)
--- NOTE | 2024-07-30 07:55 | XRay Report ---
EXAM: XR chest 1V portable CLINICAL HISTORY: s/p ppm TECHNIQUE: Radiograph of chest was acquired. COMPARISON: 07/28/2024 11:08:33 SURGERY ATTENDANT FINDINGS: The lungs are clear and well-expanded with no pulmonary infiltrate. Mild blunting of left costophrenic angle likely due to pleural thickening/pleural effusion. Left pnumothorax is seen. The cardiomediastinal silhouette is within normal limits. No acute osseous abnormality. Implantable cardiac device in situ. IMPRESSION: 1. Left pnumothorax is seen. (New finding) 2. Mild blunting of left costophrenic angle likely due to pleural thickening/pleural effusion. (New finding) 3. Implantable cardiac device in situ. (New finding) Electronically signed by Alcides Monzon 07-30-2024 07:55 AM
[2024-07-30] MEDS: ALPRAZolam 0.5 MG TABLET PO STA (10:16)
[2024-07-30] MEDS: MoRPHine SULFATE 2 MG/ML CARP IV STA (10:16)
--- NOTE | 2024-07-30 10:16 | Pulmonology Progress Note ---
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 Status post permanent pacemaker yesterday. Chest x-ray today demonstrates a moderate-sized pneumothorax. Recommendations: 1. Iatrogenic pneumothorax: Images were reviewed. Discussed with patient at bedside. Gave her options to include proceeding with pigtail catheter drainage versus observation and if it failed to resolve, proceeding with chest tube at that point in time. Patient is agreeable to chest tube placement. Will plan on pigtail catheter placement and repeat chest x-ray with clamping trial and chest tube removal once pneumothorax is resolved. Thanks for the opportunity participate in the care of this patient. Feel free to contact us with questions or concerns Admission and Anticipated Discharge Date Admission Date: July 28, 2024 Subjective Contacted by cardiology to evaluate patient with a postprocedural pneumothorax. The patient is known to me from ICU admission where she was admitted with third- degree heart block. She underwent permanent pacemaker placement yesterday. Initial chest x-ray was clear however chest x-ray this morning demonstrated a moderate-sized pneumothorax extending down into the lateral aspect of the chest. Patient was complaining of some chest discomfort and some shortness of breath but got oxycodone earlier this morning and states that alleviated some of her pain. Review of Systems Review of Systems: All systems reviewed & are unremarkable except as noted in Subjective Physical Exam Constitutional: WD/WN, vitals as above Neck: trachea midline, no thyromegaly Respiratory: normal respiratory effort, lungs clear to auscultation Cardiovascular: Heart Sounds: normal S1, normal S2 and + murmur Extremities: no edema Gastrointestinal (Abdomen): normal bowel sounds, soft, nontender, no hepatosplenomegaly Musculoskeletal: Extremities: extremities normal to inspection Skin: no rashes, warm and dry Lymphatic: no cervical lymphadenopathy Results & Data Results & Data Vital Signs (Past 12 Hours) Vital Signs Temp Pulse Pulse Resp BP BP Pulse Ox 07/30/24 07:05 36.6 C 97 H 17 145/83 H 94 07/30/24 04:00 90 22 93 07/30/24 04:00 154/73 H 07/30/24 03:30 137/88 07/30/24 03:30 89 19 95 07/30/24 03:20 139/93 07/30/24 03:15 193/107 H 07/30/24 03:00 185/94 H 07/30/24 02:57 91 H 24 94 07/30/24 02:45 157/97 H 07/30/24 02:33 181/98 H 07/30/24 02:33 181/98 H 07/30/24 02:30 193/95 H 07/30/24 02:15 172/97 H 07/30/24 01:15 171/85 H 07/30/24 00:45 156/79 H 07/30/24 00:30 157/98 H 07/30/24 00:16 150/88 H 07/30/24 00:09 94 H 21 96 07/30/24 00:03 94 H 22 96 07/29/24 23:30 162/91 H 07/29/24 23:00 156/83 H 07/29/24 23:00 156/83 H 07/29/24 23:00 93 H 07/29/24 22:30 117/96 07/29/24 22:30 117/96 07/29/24 22:16 132/76 O2 Del Method 07/30/24 07:05 Room Air 07/30/24 04:00 07/30/24 04:00 07/30/24 03:30 07/30/24 03:30 07/30/24 03:20 07/30/24 03:15 07/30/24 03:00 07/30/24 02:57 07/30/24 02:45 07/30/24 02:33 07/30/24 02:33 07/30/24 02:30 07/30/24 02:15 07/30/24 01:15 07/30/24 00:45 07/30/24 00:30 07/30/24 00:16 07/30/24 00:09 07/30/24 00:03 07/29/24 23:30 07/29/24 23:00 07/29/24 23:00 07/29/24 23:00 07/29/24 22:30 07/29/24 22:30 07/29/24 22:16 Critical Care Results & Data Vital Signs (Past 12 Hours) Vital Signs Temp Pulse Pulse Resp BP BP Pulse Ox 07/30/24 07:05 36.6 C 97 H 17 145/83 H 94 07/30/24 04:00 90 22 93 07/30/24 04:00 154/73 H 07/30/24 03:30 137/88 07/30/24 03:30 89 19 95 07/30/24 03:20 139/93 07/30/24 03:15 193/107 H 07/30/24 03:00 185/94 H 07/30/24 02:57 91 H 24 94 07/30/24 02:45 157/97 H 07/30/24 02:33 181/98 H 07/30/24 02:33 181/98 H 07/30/24 02:30 193/95 H 07/30/24 02:15 172/97 H 07/30/24 01:15 171/85 H 07/30/24 00:45 156/79 H 07/30/24 00:30 157/98 H 07/30/24 00:16 150/88 H 07/30/24 00:09 94 H 21 96 07/30/24 00:03 94 H 22 96 07/29/24 23:30 162/91 H 07/29/24 23:00 156/83 H 07/29/24 23:00 156/83 H 07/29/24 23:00 93 H 07/29/24 22:30 117/96 07/29/24 22:30 117/96 07/29/24 22:16 132/76 O2 Del Method 07/30/24 07:05 Room Air 07/30/24 04:00 07/30/24 04:00 07/30/24 03:30 07/30/24 03:30 07/30/24 03:20 07/30/24 03:15 07/30/24 03:00 07/30/24 02:57 07/30/24 02:45 07/30/24 02:33 07/30/24 02:33 07/30/24 02:30 07/30/24 02:15 07/30/24 01:15 07/30/24 00:45 07/30/24 00:30 07/30/24 00:16 07/30/24 00:09 07/30/24 00:03 07/29/24 23:30 07/29/24 23:00 07/29/24 23:00 07/29/24 23:00 07/29/24 22:30 07/29/24 22:30 07/29/24 22:16 Lab & Micro Results (Past 24 Hours) RBC 4.50 M/uL (4.20-5.40) 07/30/24 WBC 10.61 K/ul (4.8-10.8) 07/30/24 Hgb 13.9 g/dl (12.0-16.0) 07/30/24 Hct 42.2 % (37.0-47.0) 07/30/24 MCV 93.8 fL (80.0-100.0) 07/30/24 MCH 30.9 pg (25.0-34.0) 07/30/24 MCHC 32.9 g/dL (32.0-36.0) 07/30/24 RDW Standard Deviation 47.2 fL (36.4-46.3) H 07/30/24 RDW Coefficient of Variation 13.9 % (11.5-14.5) 07/30/24 Plt Count 204 K/uL (130-400) 07/30/24 MPV 9.9 fL (9.4-12.4) 07/30/24 Neutrophils (%) (Auto) 81.7 % 07/30/24 Lymphocytes (%) (Auto) 8.2 % 07/30/24 Monocytes # (Auto) 0.96 K/uL (0.11-0.59) H 07/30/24 Eosinophils # (Auto) 0.04 K/uL (0.00-0.50) 07/30/24 Immature Granulocyte % (Auto) 0.3 % 07/30/24 Neutrophils # (Auto) 8.67 K/uL (1.40-6.50) H 07/30/24 Lymphocytes # (Auto) 0.87 K/uL (1.20-3.40) L 07/30/24 Monocytes # (Auto) 0.96 K/uL (0.11-0.59) H 07/30/24 Eosinophils # (Auto) 0.04 K/uL (0.00-0.50) 07/30/24 Basophils # (Auto) 0.04 K/uL (0.00-0.20) 07/30/24 Immature Granulocyte # (Auto) 0.03 K/uL (0.01-0.20) 5 Na 138 mmol/L (136-145) 07/30/24 K 4.3 mmol/L (3.5-5.1) 07/30/24 Cl 107 mmol/L (98-107) 07/30/24 CO2 27 mmol/L (21-32) 07/30/24 Anion Gap 4 (3-11) 07/30/24 BUN 26 mg/dl (6-23) H 07/30/24 Creatinine 0.87 mg/dl (0.6-1.2) 07/30/24 BUN/Creatinine Ratio 29.9 (10-20) H 07/30/24 Glu 112 mg/dl (70-99(Fasting)) H 07/30/24 Ca 9.5 mg/dl (8.6-10.3) 07/30/24 Calcium Level 9.5 mg/dl (8.6-10.3) 07/30/24 04:37 Diagnostic Findings (Past 24 Hours) Chest X-Ray 07/29/24 15:11 XR chest 1V portable CLINICAL HISTORY: Post Pacemaker COMPARISON STUDY: 07/28/2024 FINDINGS: There is an interval left-sided dual-lead pacemaker. No pneumothorax seen. No consolidation or pleural effusion. Heart size and pulmonary vasculature are normal. IMPRESSION: No pneumothorax seen. ACT 112: Negative or not required by law. Electronically signed by: Héctor Loera M.D. 07/29/2024 3:40 PM Chest X-Ray 07/30/24 07:00 EXAM: XR chest 1V portable CLINICAL HISTORY: s/p ppm TECHNIQUE: Radiograph of chest was acquired. COMPARISON: 07/28/2024 11:08:33 FITTER HELPER FINDINGS: The lungs are clear and well-expanded with no pulmonary infiltrate. Mild blunting of left costophrenic angle likely due to pleural thickening/pleural effusion. Left pnumothorax is seen. The cardiomediastinal silhouette is within normal limits. No acute osseous abnormality. Implantable cardiac device in situ. IMPRESSION: 1. Left pnumothorax is seen. (New finding) 2. Mild blunting of left costophrenic angle likely due to pleural thickening/pleural effusion. (New finding) 3. Implantable cardiac device in situ. (New finding) Electronically signed by Alcides Monzon 07-30-2024 07:55 AM I & O Totals 24 Hours 07/29/24 07/30/24 07/31/24 06:59 06:59 06:59 Intake Total 150 / 150 Output Total 475 / 475 850 / 850 Balance -475 / -475 -700 / -700 Cumulative 07/28/24 11:51 thru 07/29/24 22:00 Intake Total 150 Output Total 1325 Balance -1175 RT Ventilator Mngmt (Last Documented) Ventilator Ordered Settings Respiratory Rate 17 07/30/24 07:05 Ventilator - PT Measurements Respiratory Rate 17 PG Care Time/CCT Total # of Minutes Spent Total Time Spent with Patient: Total time spent is greater than 50% in coordination of care (as documented) at patient's floor/unit and/or counseling patient: Coding Level of Care Code 17852 SUB INP/OBS CARE 2/35MIN Diagnoses Iatrogenic pneumothorax J95.811
--- NOTE | 2024-07-30 10:22 | Hospitalist Progress Note ---
Date of Service July 30, 2024 Assessment & Plan (1) Generalized anxiety disorder: (2) Uncontrolled hypertension: (3) Coronary artery calcification: (4) Aortic stenosis: (5) Bradycardia: (6) Third degree heart block: (7) Dyspnea on exertion: Plan The patient is a 83-year-old female who presented to the ED on 07/28/2024 after she was sent in by Dr. Hernandez to be in third-degree heart block Third-degree heart block Left-sided pneumothorax Reports progressive shortness of breath over the past few months, Found to have third-degree AV block; admitted to ICU for close monitoring Echo shows EF of 65 to 70% with mild concentric LVH. Moderate valvular aortic stenosis present Patient underwent pacemaker placement on 07/29. Postprocedure chest x-ray done on 07/30 showed left-sided pneumothorax. Pulmonology is consulted for comanagement and possible chest tube placement. Updated patient's son over the phone regarding the new finding and possible need for intervention. Continue to monitor oxygenation; supplemental oxygen as needed if SpO2 is less than 90% Hypertension; continue losartan; hold metoprolol Hx HLD: Continue statin Hx anxiety: Continue sertaline Full code DVT prophylaxis: SCDs, hold off on AC with possible upcoming procedure Plan of care discussed with patient; agrees with the plan. Time spent evaluating patient, direct bedside care, chart review, placing orders, interpretation of diagnostic studies, discussion with consultants, patient, and family members, as well as other required patient management activities is 50 minutes Please note the above document was generated using voice recognition software. It may contain grammatical, syntax or spelling errors. Any formal questions or concerns about the content, text or information contained within the body of this dictation should be directly addressed to the provider for clarification Admission and Anticipated Discharge Date Admission Date: July 28, 2024 Subjective Patient seen and examined at bedside. She reports some left-sided chest pain/discomfort which improved with pain medication. Chest x-ray in the a.m. showed left-sided pneumothorax. She is saturating well in room air. Review of Systems Review of Systems: All systems reviewed & are unremarkable except as noted in Subjective Physical Exam Physical Exam: Constitutional: Alert oriented x 3; not in distress. Respiratory: Decreased sounds on left lung compared to right Cardiovascular: RRR, no murmur, no edema Vessels: no JVD or carotid bruit Chest: normal inspection of chest Abdomen: normal bowel sounds, soft, nontender, no hepatosplenomegaly Musculoskeletal: no cyanosis or clubbing, extremities motor strength 5/5 Skin: no rashes, warm and dry normal turgor Neurologic: PERRL, EOMI, accommodation nl, no face palsy, no dysarthria CN's II- XI intact bilaterally and moves all extremities Psychiatric: A+Ox3, euthymic affect Results & Data Results & Data Vital Signs (Past 12 Hours) Vital Signs Temp Pulse Pulse Resp BP BP Pulse Ox 07/30/24 07:05 36.6 C 97 H 17 145/83 H 94 07/30/24 04:00 90 22 93 07/30/24 04:00 154/73 H 07/30/24 03:30 137/88 07/30/24 03:30 89 19 95 07/30/24 03:20 139/93 07/30/24 03:15 193/107 H 07/30/24 03:00 185/94 H 07/30/24 02:57 91 H 24 94 07/30/24 02:45 157/97 H 07/30/24 02:33 181/98 H 07/30/24 02:33 181/98 H 07/30/24 02:30 193/95 H 07/30/24 02:15 172/97 H 07/30/24 01:15 171/85 H 07/30/24 00:45 156/79 H 07/30/24 00:30 157/98 H 07/30/24 00:16 150/88 H 07/30/24 00:09 94 H 21 96 07/30/24 00:03 94 H 22 96 07/29/24 23:30 162/91 H 07/29/24 23:00 156/83 H 07/29/24 23:00 156/83 H 07/29/24 23:00 93 H 07/29/24 22:30 117/96 07/29/24 22:30 117/96 O2 Del Method 07/30/24 07:05 Room Air 07/30/24 04:00 07/30/24 04:00 07/30/24 03:30 07/30/24 03:30 07/30/24 03:20 07/30/24 03:15 07/30/24 03:00 07/30/24 02:57 07/30/24 02:45 07/30/24 02:33 07/30/24 02:33 07/30/24 02:30 07/30/24 02:15 07/30/24 01:15 07/30/24 00:45 07/30/24 00:30 07/30/24 00:16 07/30/24 00:09 07/30/24 00:03 07/29/24 23:30 07/29/24 23:00 07/29/24 23:00 07/29/24 23:00 07/29/24 22:30 07/29/24 22:30 (4) Aortic stenosis Cardiac valve disease etiology: nonrheumatic Qualified Code(s): I35.0 - Nonrheumatic aortic (valve) stenosis
--- NOTE | 2024-07-30 10:52 | Electrocardiogram Report ---
Test Reason : Blood Pressure : */* mmHG Vent. Rate : 96 BPM Atrial Rate : 96 BPM P-R Int : 168 ms QRS Dur : 110 ms QT Int : 388 ms P-R-T Axes : 74 -46 251 degrees QTcB Int : 490 ms Atrial-sensed ventricular-paced rhythm Abnormal ECG When compared with ECG of 29-Jul-2024 04:56, Electronic ventricular pacemaker has replaced Junctional rhythm Vent. rate has increased by 61 bpm Confirmed by Chico Beaver ([id number]) on 07/30/2024 10:52:20 AM Referred By: REFERRED SELF Confirmed By: Chico Beaver
--- NOTE | 2024-07-30 10:54 | Procedure Note ---
Procedure Note Date of Service July 30, 2024 Procedure: 14 Pashto pigtail catheter placement Indication: Iatrogenic pneumothorax Consent risk and benefits were discussed with the patient. She agreed. Written consent was verified prior to commencement of the procedure. Manager Medical Device Dr. Lino Estimated blood loss: Less than 5 mL Anesthesia: 5 mL 1% lidocaine without epinephrine locally. Procedure: Patient was placed in a left side up decubitus position. An area approximately 2 cm below the nipple line in the mid axillary line was cleaned with chlorhexidine and a sterile field established. The skin and subcutaneous tissues werewith 1% lidocaine. The finder needle was advanced injecting lidocaine until air was able to be aspirated. Syringe and needle were then removed. A small skin sterling was made with scalpel. An 18-gauge needle was then advanced on the similar line between the rib spaces until air was aspirated. Syringe was detached leaving the needle in place. A wire was passed through the needle into the pleural space and the needle removed leaving the wire in place. A 14 Pashto dilator was then passed over the wire and the tract dilated with ease. A 14 Pashto pigtail catheter with stopcock had been loaded with a stiffening catheter. This was then advanced over the wire into the pleural space. The wire and stiffening catheter were removed leaving the pigtail catheter in place. The tube was attached to suction with a 2+ air leak which persisted for about 30 seconds and then resolved. A skater catheter fixation system was attached to the patient and the catheter secured. Catheter remained on 20 cm of wall suction with a chest x-ray pending. The patient tolerated the procedure well. [facility] [place] Codes (Charges) Pulmonary/Thoracic Procedure 1: Pulmonary and Thoracic: 64695 Tube thoracostomy Coding CPT Codes Pulmonary/Thoracic - Pulmonary and Thoracic: 07322 Tube thoracostomy ([id number]) Additional Codes Date of Service ([email or web address])
--- NOTE | 2024-07-30 11:11 | XRay Report ---
XR chest 1V portable CLINICAL HISTORY: Chest tube insertion. COMPARISON STUDY: Chest radiograph July 30, 2024 at 6:43 AM. FINDINGS: The left pneumothorax has decreased in size following chest tube insertion. A small residua l pneumothorax is noted with superior pleural separation of 1.5 cm. A left subclavian pacer is in sarika ce. There are right axillary surgical clips. Minimal left basilar opacity favors atelectasis. No evid ence for pulmonary edema IMPRESSION: Interval placement of a left chest tube with significant decrease in size of the left pn eumothorax. Small residual pneumothorax. ACT 112: Negative or not required by law. Electronically signed by: Leroy Waller M.D. 07/30/2024 11:09 AM
[2024-07-30] MEDS: SERTRALINE HCL 50 MG TABLET PO SCH (11:18)
--- NOTE | 2024-07-30 11:27 | Cardiology Progress Note ---
Date of Service July 30, 2024 Assessment & Plan (1) Third degree heart block: (2) Iatrogenic pneumothorax: (3) Pacemaker: (4) Aortic stenosis: (5) Hypertensive urgency: Plan 83-year-old female admitted with complete heart block. Dual-chamber pacemaker implanted 07/29/2024 with development of left-sided pneumothorax. Normal pacemaker function per repeat interrogation this a.m. Recommendations: * Pulmonary consultation for chest tube placement. * Restart beta-miriam after chest tube procedure. * Restart low-dose aspirin 81 mg daily. * Continue rosuvastatin losartan as ordered. * Repeat 2D transthoracic echocardiogram in 6 to 12 months as outpatient. Cody Mukherjee DO, [facility] Admission and Anticipated Discharge Date Admission Date: July 28, 2024 Subjective 84-year-old female seen and examined at the bedside. Dual-chamber permanent pacemaker implanted 07/29/2024. Pneumothorax noted on chest x-ray this a.m. Heart rate elevated on telemetry demonstrating sinus rhythm and sinus tachycardia with heart rate ranging from 90 to 120 bpm. She denies palpitations currently. No chest pain or pressure. Review of Systems Review of Systems: All systems reviewed & are unremarkable except as noted in Subjective Physical Exam Constitutional: well nourished; no acute distress Respiratory: normal respiratory effort; no respiratory distress and no retra ctions Auscultation: no crackles, no rales, no rhonchi and no wheezes Cardiovascular: Rate/Rhythm: regular rate and + bradycardic Heart Sounds: normal S1, normal S2 and + murmur (2/6Systolic ejection murmur heard best at the right second intercostal spac) Gastrointestinal (Abdomen): Inspection/Auscultation: abdomen normal to inspection and normal bowel sounds; abdomen not distended Percussion/Palpation: abdomen soft; abdomen nontender, no guarding and abdomen not rigid Neurologic: CN's II-XI intact bilaterally and moves all extremities; no focal motor deficits Results & Data Vital Signs (Past 12 Hours) Vital Signs Temp Pulse Pulse Resp BP BP Pulse Ox 07/30/24 10:53 36.8 C 90 17 145/83 H 92 07/30/24 08:00 07/30/24 07:05 36.6 C 97 H 17 145/83 H 94 07/30/24 04:00 90 22 93 07/30/24 04:00 154/73 H 04/24/25 03:30 137/88 07/30/24 03:30 89 19 95 07/30/24 03:20 139/93 07/30/24 03:15 193/107 H 07/30/24 03:00 185/94 H 07/30/24 02:57 91 H 24 94 07/30/24 02:45 157/97 H 07/30/24 02:33 181/98 H 07/30/24 02:33 181/98 H 07/30/24 02:30 193/95 H 07/30/24 02:15 172/97 H 07/30/24 01:15 171/85 H 07/30/24 00:45 156/79 H 07/30/24 00:30 157/98 H 07/30/24 00:16 150/88 H 07/30/24 00:09 94 H 21 96 07/30/24 00:03 94 H 22 96 07/29/24 23:30 162/91 H O2 Del Method O2 Flow Rate 07/30/24 10:53 Room Air 07/30/24 08:00 Nasal Cannula 2 07/30/24 07:05 Room Air 07/30/24 04:00 07/30/24 04:00 07/30/24 03:30 07/30/24 03:30 07/30/24 03:20 07/30/24 03:15 07/30/24 03:00 07/30/24 02:57 07/30/24 02:45 07/30/24 02:33 07/30/24 02:33 07/30/24 02:30 07/30/24 02:15 07/30/24 01:15 07/30/24 00:45 07/30/24 00:30 07/30/24 00:16 07/30/24 00:09 07/30/24 00:03 07/29/24 23:30 Laboratory Results CBC 07/30/24 Range/Units 04:37 WBC 10.61 (4.8-10.8) K/ul RBC 4.50 (4.20-5.40) M/uL Hgb 13.9 (12.0-16.0) g/dl Hct 42.2 (37.0-47.0) % Plt Count 204 (130-400) K/uL Neut # (Auto) 8.67 H (1.40-6.50) K/uL Lymph # (Auto) 0.87 L (1.20-3.40) K/uL [place] # (Auto) 0.96 H (0.11-0.59) K/uL Eos # (Auto) 0.04 (0.00-0.50) K/uL Baso # (Auto) 0.04 (0.00-0.20) K/uL Comprehensive Metabolic Panel 07/30/24 Range/Units 04:37 Sodium 138 (136-145) mmol/L Potassium 4.3 (3.5-5.1) mmol/L Chloride 107 (98-107) mmol/L Carbon Dioxide 27 (21-32) mmol/L BUN 26 H (6-23) mg/dl Creatinine 0.87 (0.6-1.2) mg/dl Glucose 112 H (70-99(Fasting)) mg/dl Calcium 9.5 (8.6-10.3) mg/dl Intake and Output 07/29/24 07/30/24 07/30/24 22:59 06:59 14:59 Intake Total 100 / 150 Output Total 650 / 850 Balance -550 / -700 Intake: Oral 100 / 150 Output: Urine Amount (Catheter) 650 / 850 [place]/Indwelling 650 / 850 (4) Aortic stenosis Cardiac valve disease etiology: nonrheumatic Qualified Code(s): I35.0 - Nonrheumatic aortic (valve) stenosis
[2024-07-30] MEDS: METOPROLOL SUCC 50MG EXT REL TAB PO SCH (12:50)
[2024-07-30] MEDS: oxyCODONE HCL IR 5 MG TAB (IMMEDIATE RELEASE) PO PRN (14:56)
[2024-07-31 05:42] LABS: Basophils # (auto) 0.05 K/uL (0.00-0.20); Basophils % (auto) 0.6 %; Eosinophils # (auto) 0.17 K/uL (0.00-0.50); Hematocrit (blood only) 39.4 % (37.0-47.0); Hemoglobin 12.9 g/dl (12.0-16.0); Immature Granulocytes # (auto) 0.02 K/uL (0.01-0.20); Immature Granulocytes % (auto) 0.2 %; Lymphocytes # (auto) 1.27 K/uL (1.20-3.40); Lymphocytes % (auto) 14.6 %; Mean Corpuscular Hgb Conc 32.7 g/dL (32.0-36.0); Mean Corpuscular Volume 94.7 fL (80.0-100.0); Mean Platelet Volume 9.5 fL (9.4-12.4); Monocytes # (auto) 1.03 K/uL (0.11-0.59); Monocytes % (auto) 11.8 %; Neutrophils # (auto) 6.17 K/uL (1.40-6.50); Neutrophils % (auto) 70.8 %; Platelet Count 162 K/uL (130-400); RDW Coefficient of Variation 13.8 % (11.5-14.5); RDW Standard Deviation 48.1 fL (36.4-46.3); Red Blood Count 4.16 M/uL (4.20-5.40); White Blood Count 8.71 K/ul (4.8-10.8)
[2024-07-31 05:58] LABS: BUN Creatinine Ratio 37.3 (10-20); Calcium 9.3 mg/dl (8.6-10.3); Potassium 4.4 mmol/L (3.5-5.1)
[2024-07-31] MEDS: ASPIRIN 81 MG ECTAB PO SCH (08:10)
--- NOTE | 2024-07-31 08:33 | Procedure Note ---
Procedure Note Date of Service July 31, 2024 Procedure: Removal of 14 British pigtail catheter Indication: Resolution of pneumothorax [place] Dr. Lino Anesthesia none Procedure: The patient was placed in an upright seated position. Dressing was taken down and the catheter fully released. Under full expiration the catheter was pulled and observed to be intact. A sterile dressing was applied. The patient tolerated the procedure well without complication [facility] Procedure Codes (Charges) Pulmonary/Thoracic Procedure 1: Pulmonary and Thoracic: 95863 Remove lung catheter Coding CPT Codes Pulmonary/Thoracic - Pulmonary and Thoracic: 34741 Remove lung catheter ([id number]) Additional Codes Date of Service (PG.SURGERY)
--- NOTE | 2024-07-31 08:36 | Pulmonology Progress Note ---
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 Iatrogenic pneumothorax secondary to pacemaker implantation requiring chest tube placement. Tube has been clamped for over 12 hours with decreasing size of the pneumothorax. Recommendations: 1. Iatrogenic pneumothorax: Tolerating clamping trial well. Tube will be discontinued. From a pulmonary standpoint, the patient can be dismissed from the hospital. Pulmonary will sign off. Feel free to contact us with questions or concerns. Admission and Anticipated Discharge Date Admission Date: July 28, 2024 Subjective Patient seen and examined. EMR reviewed. Discussed with bedside nurse and with patient. Patient is doing well overnight. She is denying any chest pain or difficulty breathing. The tube is been clamped since 7:00 last evening with chest x-ray this morning demonstrating a small apical pneumothorax significantly decreased from yesterday. No crepitus. Review of Systems 2 Review of Systems: All systems reviewed & are unremarkable except as noted in Subjective Physical Exam 2 Constitutional: WD/WN, vitals as above Neck: trachea midline, no thyromegaly Respiratory: normal respiratory effort, lungs clear to auscultation Cardiovascular: Rate/Rhythm: regular rate Heart Sounds: normal S1, normal S2 and + murmur Extremities: no edema Gastrointestinal (Abdomen): normal bowel sounds, soft, nontender, no hepatosplenomegaly Musculoskeletal: Extremities: extremities normal to inspection Skin: no rashes, warm and dry Lymphatic: no cervical lymphadenopathy Results & Data Results & Data Vital Signs (Past 12 Hours) Vital Signs Temp Pulse Pulse Resp BP Pulse Ox O2 Del Method 07/31/24 08:20 97 Room Air 07/31/24 08:02 36.3 C L 78 18 135/99 97 Nasal Cannula 07/31/24 02:33 36.7 C 72 16 132/73 97 Room Air 07/30/24 23:00 76 07/30/24 22:00 36.7 C 75 17 112/71 97 Nasal Cannula O2 Flow Rate 07/31/24 08:20 07/31/24 08:02 2 07/31/24 02:33 07/30/24 23:00 07/30/24 22:00 2 Laboratory Results 07/31/24 05:21 07/31/24 05:21 Diagnostic Findings Chest x-ray from today was independently reviewed. Tube remains in good position. Small apical pneumothorax present, decreased compared to prior film PG Care Time/CCT Total # of Minutes Spent Total Time Spent with Patient: Total time spent is greater than 50% in coordination of care (as documented) at patient's floor/unit and/or counseling patient: Coding Level of Care Code 21756 SUB INP/OBS CARE 2/35MIN Diagnoses Iatrogenic pneumothorax J95.811
--- NOTE | 2024-07-31 08:42 | XRay Report ---
EXAM: XR chest 1V portable CLINICAL HISTORY: Follow-up pneumothorax. TECHNIQUE: An X-ray image of the chest is obtained in AP projection. COMPARISON: 07/30/2024. FINDINGS: Pulmonary Parenchyma: Interval regression of left apical pneumothorax. A left-sided chest tube is seen with tip noted at the left 5th intercostal space (new). Unchanged bilateral interstitial prominence and blunted costophrenic angles. Heart and Mediastinum: Heart size and shape are normal. No mediastinal widening or masses. No hilar or mediastinal lymphadenopathy. Cardiac device in place. Bony Thorax: Bony thorax appears intact without fractures or deformities. Soft Tissues: Multiple surgical clips in the right axilla. IMPRESSION: 1. Interval significant regression of left apical pneumothorax. 2. A left-sided chest tube is seen with tip noted at the left 5th intercostal space (new). 3. Unchanged bilateral interstitial prominence and mildly blunted costophrenic angles (can be due to pleural thickening). Electronically signed by Josh Salas 07-31-2024 08:42 AM
--- NOTE | 2024-07-31 12:23 | Cardiology Progress Note ---
Date of Service July 31, 2024 Assessment & Plan (1) Third degree heart block: (2) Iatrogenic pneumothorax: (3) Pacemaker: (4) Aortic stenosis: (5) Hypertensive urgency: Plan 83-year-old female admitted with complete heart block. Dual-chamber pacemaker implanted 07/29/2024 with development of left-sided pneumothorax. Chest tube removed earlier today.Normal pacemaker function per interrogation 07/30/2024. Recommendations: * Continue Toprol-XL 50 mg daily, low-dose aspirin, rosuvastatin, furosemide, and losartan. * Outpatient wound check and pacemaker interrogation in 1 week. * Repeat 2D transthoracic echocardiogram in 6 to 12 months as outpatient. * Pulmonary input appreciated. * No further inpatient cardiac testing or intervention recommended at this time. Cody Mukherjee DO, [facility] Admission and Anticipated Discharge Date Admission Date: July 28, 2024 Subjective 84-year-old female seen and examined at the bedside. Feeling better after chest tube removal. Denies palpitations or shortness of breath. Telemetry reveals AV paced rhythm. No concerns/complaints. Review of Systems Review of Systems: All systems reviewed & are unremarkable except as noted in Subjective Physical Exam Constitutional: well nourished; no acute distress Respiratory: normal respiratory effort; no respiratory distress and no retractions Auscultation: no crackles, no rales, no rhonchi and no wheezes Cardiovascular: Rate/Rhythm: regular rate and + bradycardic Heart Sounds: normal S1, normal S2 and + murmur (2/6Systolic ejection murmur heard best at the right second intercostal spac) Gastrointestinal (Abdomen): Inspection/Auscultation: abdomen normal to inspection and normal bowel sounds; abdomen not distended Percussion/Palpation: abdomen soft; abdomen nontender, no guarding and abdomen not rigid Neurologic: CN's II-XI intact bilaterally and moves all extremities; no focal motor deficits Results & Data Vital Signs (Past 12 Hours) Vital Signs Temp Pulse Pulse Resp BP Pulse Ox O2 Del Method 07/31/24 08:30 Room Air 07/31/24 08:20 97 Room Air 07/31/24 08:02 36.3 C L 78 18 135/99 97 Nasal Cannula 07/31/24 05:55 71 07/31/24 02:33 36.7 C 72 16 132/73 97 Room Air O2 Flow Rate 07/31/24 08:30 07/31/24 08:20 07/31/24 08:02 2 07/31/24 05:55 07/31/24 02:33 Laboratory Results CBC 07/31/24 Range/Units 05:21 WBC 8.71 (4.8-10.8) K/ul RBC 4.16 L (4.20-5.40) M/uL Hgb 12.9 (12.0-16.0) g/dl Hct 39.4 (37.0-47.0) % Plt Count 162 (130-400) K/uL Neut # (Auto) 6.17 (1.40-6.50) K/uL Lymph # (Auto) 1.27 (1.20-3.40) K/uL [place] # (Auto) 1.03 H (0.11-0.59) K/uL Eos # (Auto) 0.17 (0.00-0.50) K/uL Baso # (Auto) 0.05 (0.00-0.20) K/uL Comprehensive Metabolic Panel 07/31/24 Range/Units 05:21 Sodium 139 (136-145) mmol/L Potassium 4.4 (3.5-5.1) mmol/L Chloride 107 (98-107) mmol/L Carbon Dioxide 28 (21-32) mmol/L BUN 25 H (6-23) mg/dl Creatinine 0.67 (0.6-1.2) mg/dl Glucose 102 H (70-99(Fasting)) mg/dl Calcium 9.3 (8.6-10.3) mg/dl Intake and Output 07/30/24 07/31/24 07/31/24 22:59 06:59 14:59 Intake Total 740 / 860 120 / 860 Output Total 650 / 800 150 / 800 200 / 200 Balance 90 / 60 -30 / 60 -200 / -200 Intake: Oral 740 / 860 120 / 860 Output: Urine Amount (Catheter) 650 / 800 150 / 800 200 / 200 [place]/Indwelling 650 / 800 150 / 800 200 / 200 Other: Weight 62.3 kg Weight Measurement Method Built in [facility] (4) Aortic stenosis Cardiac valve disease etiology: nonrheumatic Qualified Code(s): I35.0 - Nonrheumatic aortic (valve) stenosis
--- NOTE | 2024-07-31 12:32 | Discharge Summary ---
Date of Service July 31, 2024 Admission HPI Per Admitting Provider The patient is an 83-year-old female with a past medical history of HTN, aortic stenosis, [place], tachycardia, breast and colon cancerin remission who presents to the ED on after she was sent in from Dr. Hugo's office after she was noted to be in third-degree heart block. Patient reports over the past 3-4 months her shortness of breath has continued to worsen. She reports she is unable to walk up a flight of steps or take long walks without having to sit down to catch her breath. She denies chest pain with this. Denies any recent changes in her medication. Does report having COVID about 3 months ago but reports her shortness of breath occurred prior to her COVID diagnosis. Patient also reports that when she begins to move her heart rate spikes to the 120s. She noted this by her Apple Watch. She reports compliance with taking metoprolol 50 mg daily. She denies any nausea/vomiting/diarrhea. Patient was recently admitted to the hospital in November 2023 with shortness of breath and uncontrolled hypertension. At this time she had recently had an echo that was fairly unremarkable. At this time, she was started on ceftriaxone for UTI. At this time, she was scheduled to follow-up with cardiology in February. Echo from October 2023 with EF of 55-60%. Mild to moderate aortic stenosis, mild aortic regurgitation. On arrival to the ED, labs are fairly unremarkable. Total bili mildly elevated at 1.4, alk phos 126, Lyme screening pending, TSH within normal limits, electrolytes within normal limits. Chest x-ray was negative The patient's blood pressure was in the 200s on arrival. She was given IV hydralazine with improvement. After discussion with cardiology, it was recommended for ICU admission for closer monitoring. Will plan for pacemaker likely in the next 24 hours if symptoms persist. Admission Exam Per Admitting Provider Constitutional: WD/WN, vitals as above Eyes: PERRL, conjunctivae normal, anicteric sclerae ENMT: external ear and nose normal, oropharynx normal Neck: trachea midline, no thyromegaly Respiratory: normal respiratory effort, lungs clear to auscultation (Shortness of breath) Cardiovascular: RRR, no murmur, no edema Rate/Rhythm: + bradycardic (HR 30s- 40s) Gastrointestinal (Abdomen): normal bowel sounds, soft, nontender, no hepatosplenomegaly Musculoskeletal: no cyanosis or clubbing, extremities motor strength 5/5 Skin: no rashes, warm and dry Neurologic: PERRL, EOMI, accommodation nl, no face palsy, no dysarthria Psychiatric: A+Ox3, euthymic affect (Anxious on exam) Principal Diagnosis Third-degree heart block Left-sided pneumothorax Discharge Exam Constitutional: Alert oriented x 3; not in distress. Respiratory: Decreased sounds on left lung compared to right Cardiovascular: RRR, no murmur, no edema Vessels: no JVD or carotid bruit Chest: Dressing in place over the pacemaker insertion site; no overlying soakage. Abdomen: normal bowel sounds, soft, nontender, no hepatosplenomegaly Musculoskeletal: no cyanosis or clubbing, extremities motor strength 5/5 Skin: no rashes, warm and dry normal turgor Neurologic: PERRL, EOMI, accommodation nl, no face palsy, no dysarthria CN's II- XI intact bilaterally and moves all extremities Psychiatric: A+Ox3, euthymic affect Discharge Data Allergies Allergy/AdvReac Type Severity Reaction Status Date / Time Sulfa (Sulfonamide Allergy Vomiting Verified 11/23/23 06:04 Antibiotics) Consultations 07/28/24 13:16 ED Decision to Admit Stat 07/28/24 15:47 Consult Central Office Equipment Engineer Routine 07/29/24 08:20 Consult Cardiology Routine 07/30/24 08:12 Consult Pulmonology Routine Procedures Performed Operation Date: 07/29/24 11:00 Actual Procedures p Pacer with A/V Leads (Dual) - Carol Dean DO s Venogram, Unilateral - Carol Dean DO Ordered Studies 07/29/24 06:45 EP Lab Images for PACS ONCE Hospital Course (1) Generalized anxiety disorder: (2) Uncontrolled hypertension: (3) Coronary artery calcification: (4) Aortic stenosis: (5) Bradycardia: (6) Third degree heart block: (7) Dyspnea on exertion: Plan The patient is a 83-year-old female who presented to the ED on 07/28/2024 after she was sent in by Dr. Hernandez to be in third-degree heart block Third-degree heart block s/p pacemaker placement 07/29 Left-sided pneumothorax s/p chest tube placement 07/29, removed 07/30 Reports progressive shortness of breath over the past few months, Found to have third-degree AV block; admitted to ICU for close monitoring Echo shows EF of 65 to 70% with mild concentric LVH. Moderate valvular aortic stenosis present Patient underwent pacemaker placement on 07/29. Postprocedure chest x-ray done on 07/30 showed left-sided pneumothorax. Pulmonology is consulted for comanagement; Patient underwent chest tube placement. Patient tolerated clamping of the chest tube and subsequent chest x- ray showed resolution of the pneumothorax. Chest tube was discontinued on the day of the discharge. Patient was discharged home with instructions to follow- up with PCP, pacemaker clinic. No changes to the medication regimen were made. Please note the above document was generated using voice recognition software. It may contain grammatical, syntax or spelling errors. Any formal questions or concerns about the content, text or information contained within the body of this dictation should be directly addressed to the provider for clarification Total Time Total Time Spent Total Time Spent (In Minutes): 45 Total Time Includes: Examination of the Patient, Discharge Planning, Medication Reconciliation, Communication With Other Providers and Other Discharge Plan Discharge Items Patient Disposition: Home - Self-Care Reason For Visit: 3rd DEGREE HB Discharge Diagnosis: Third-degree heart block status post permanent pacemaker placement Activity: As commented below Activity Comment: do not raise the left elbow over the left shoulder for 1 month Lifting: No more than 10 pounds Lifting Comment: do not lift more than 10 pounds with the left arm for 2 weeks Bathing: Keep incision dry Bathing Comment: keep dressing on & dry until wound check Non-emergency contact: Primary Care Provider Call non-emergency contact if: you have any medication questions and your symptoms worsen Follow-up/Referrals: Stevie Mcclain D.O. [Primary Care Provider] - 08/07/24 10:30 am ([place] office: [phone]) Diet: Regular Addtl Attending Provider Instructions: Take Tylenol as needed for mild pain. For severe breakthrough pain; you are prescribed oxycodone 5 mg tablets. Please take half a tablet to 1 tablet as needed Follow up with PCP as scheduled Device and wound check at [facility] [place] in 10-14 days Try to wear a surgical bra or sports bra for wound healing until your wound check Pending Studies at Discharge: No Stand-Alone Forms: My [facility], Smoking Cessation Medications and DC Order Prescriptions: New oxycodone 5 mg Tablet 2.5 mg PO Q4H PRN (Reason: pain) Qty: 10 0RF Continued metoprolol succinate 50 mg tablet extended release 24 hr 50 mg PO DAILY furosemide 20 mg tablet 20 mg PO QAM rosuvastatin 10 mg tablet 10 mg PO DAILY ascorbic acid (vitamin C) [Vitamin C] 1,000 mg Tablet 1,000 mg PO DAILY Qty: 0 zinc acetate 25 mg (zinc) Capsule 25 mg PO DAILY Qty: 0 aspirin 81 mg Tablet,Delayed Release (Dr/Ec) 81 mg PO DAILY Qty: 0 losartan 100 mg tablet 50 mg PO BID fluticasone propionate 50 mcg/actuation [place],Suspension 2 spray INTRANASAL DAILY Qty: 0 Rx Instructions: each nostril sertraline 50 mg tablet 50 mg PO DAILY calcium carbonate-vitamin D3 [Calcium 600 + D(3)] 600 mg-10 mcg (400 unit) Tablet 1 tab PO DAILY Qty: 0 Discharge Orders: Discharge Order (Routine); Ordered 07/31/24 Ordered By: Pedro Gomez Admission Data Admit Date/Time: 07/28/24 14:08 Attending Provider: Pedro Gomez Admit Provider: Cecilia Christianson Primary Care Provider: Stevie Mcclain Other Providers: Cecilia Christianson; Matthew Lino; Cody Mukherjee
[2024-07-31 12:38] VITALS: RESP 23; TEMP 97.7; O2SAT 95
[2024-07-31 14:12] VITALS: BP 114/69; PULSE 90
--- NOTE | 2024-08-13 12:36 | Operative Report ---
Post Operative Report DATE OF PROCEDURE: 07/29/2024 PREOPERATIVE DIAGNOSES: Complete heart block POSTOPERATIVE DIAGNOSIS: Same PROCEDURE: A dual-chamber rate responsive permanent pacemaker, along with a intraoperative HIS bundle EGM recordings peripheral venogram under fluoroscopic guidance. SURGEON: Carol Dean DO ASSISTANTS: None. ANESTHESIA: Monitored conscious sedation administered under my supervision by Aparna Collado. Start time 14:29, end time 15:20, a total of 2 mg of Versed and 50 mcg of fentanyl. INTRAVENOUS FLUIDS: 0 mL. CONTRAST: 20 mL. ANTIBIOTICS: 1 grams of Ancef. ADDITIONAL MEDICATIONS: 1None BLOOD LOSS: 50 mL. URINE OUTPUT: Not applicable. SPECIMENS: None. FINDINGS: See below. DRAINS: None. COMPLICATIONS: None. CONDITION: Stable. INDICATIONS: This is a 84-year-old female who has a past medical history SVT, HTN, mild to moderate , Mild AI, Mild MR, Asthma, Breast cancer s/p mastectomy. Pt was recommended to be admitted to [facility] due to the CHB. She was recommended a pacemaker prior to hospital discharge. CONSENT: Consent was obtained prior to the patient going into the electrophysiology lab. The patient was informed of the risks, benefits, and alternatives to the procedure. Risks include, but not limited to, sudden cardiac , cardiac arrhythmias, cerebrovascular accident, myocardial infarction, injury to his blood vessels, chamber of the heart and lung, bleeding and infection. The patient understood these risks and agreed to the procedure as planned. Informed consent was obtained. DESCRIPTION OF PROCEDURE: The patient was brought into electrophysiology lab in a fasting state. She was connected to continuous cardiac monitoring. A timeout was performed to ensure the patient's identity and procedure correctly. She was prepped and draped in the left infraclavicular space in normal surgical standard fashion. Monitored conscious sedation was given throughout the procedure for the patient's comfort level. [place] precautions were maintained throughout the procedure. Prophylactic antibiotics were given prior to incision. A 20 mL of 1% lidocaine and bupivacaine mixture were given in the left deltopectoral groove. An incision was made in the left deltopectoral groove. Blunt dissection was performed down to the pectoralis muscle. Then, using blunt dissection over the pectoralis muscle within the pectoral fascia, a pacemaker pocket was created. Then, a peripheral venogram was performed to identify the axillary vein. Venous axillary access was obtained through a needlestick without any problems. A guidewire was inserted without any resistance. A 9- [place] sheath was inserted over the guidewire without any resistance. Dilator was removed and a second guidewire was inserted through the sheath to allow for retained venous access. Then the sheath was removed and a 6 [place] sheath was advanced over one of the guidewires. The guidewire and dilator was removed. Then the RA lead was advanced into the RV and positioned into the RV apex under fluroscopy to have back up pacing while placing the left bundle lead. Then a 9 [place] sheath was inserted over one of the guidewire. The guidewire and dilator were removed. Then, the [employer] 3D medium sheath was inserted through the 9-[place] sheath over a Glidewire into the right ventricle. The Glidewire and dilator were removed. Then, the left bundle lead was advanced through the sheath and intracardiac electrogram His bundle recordings were performed when the camera was in [place] 10. Once I had an idea where the His bundle was-as I could not see a clear HIS. I then moved the camera to [place] 30 and marked where I estimated the His bundle was on my fluoroscopy screen. I came down about 2 cm from this in a line that would extend out to the apex and then started coming on pacing. Once I found an area where I had a nice W formed pace complex in my lead V1, I then moved the camera to [place] 30. Then the helix was extended into the septum. Then the helix locking tool was placed. Then the lead was screwed further into the septum while pacing by giving slow clockwise turns. The paced complex changed to a nice R' in V1 and the pacing stim to peak QRS in V6 was good. I did need to reposition the lead a few times before it advanced nicely. Of note I did have to reposition the lead a couple of times. I then gave contrast through the sheath to see how far the lead was into the septum and then I slit the [employer]ician 3D sheath under fluoroscopic guidance and left the 9-[place] sheath in while I positioned the right atrial lead. The right atrial lead screw was retracted from the RV apex and the lead was pulled back into right atrium and positioned into right atrial appendage under fluoroscopic guidance. There was adequate pacing and sensing thresholds and no diaphragmatic stimulation with high output pacing. The 6-[place] sheath was peeled away and the lead was fixated to the pectoralis muscle using 0 silk suture. The 9-[place] sheath around the left bundle lead was peeled away and the lead was fixated to pectoralis muscle using 0 silk suture. The pocket was flushed with copious amounts of vancomycin and saline wash and inspected for hemostasis. The leads were then attached to the pulse generator making sure the pins were in appropriate position, passed set screws, and set screws were all tightened. Pulse generator was then placed in the pocket, making sure the leads were lying flat beneath the device. The incision was closed in a 3-layer fashion using 2-0 Vicryl interrupted suture, followed by 3-0 Vicryl interrupted suture, followed by 4-0 Monocryl running stitch. Then a primaseal dressing was placed EQUIPMENT: 1. Pulse generator is a [employer] MRI Model Number [id number] SN: [id number] 2. Right atrial lead, Gremln UlitPace [id number] SN: [id number] 3. Left bundle lead, [place]n UltiPace [id number] SN: [id number] INTRAPROCEDURAL FINDINGS: 1. Intracardiac electrogram His bundle recordings, AH is 70 milliseconds, HV is 40 milliseconds. 2. Right atrial lead, P waves 2.8 millivolts, impedance 400 ohms, threshold 0.6 volts at 0.5 milliseconds. 3. Left bundle lead, R waves 7.1 millivolts, impedance 680 ohms, threshold 1.4 volts at 0.5 milliseconds. FINAL MEASUREMENTS THROUGH THE DEVICE: 1. Right atrial lead, P waves 2 millivolts, impedance 530 ohms, threshold 0.75 volt at 0.4 milliseconds. 2. Left bundle lead, R waves 12 millivolts, impedance 630 ohms, threshold 1.0 volts at 0.4 milliseconds. FINAL PARAMETERS: DDD 60/120, right atrial amplitude 3.5 volts, pulse width 0.4 milliseconds, sensitivity 0.3 millivolts. Left bundle lead amplitude 5 volts, pulse width 0.4 milliseconds, sensitivity 2 millivolts. IMPRESSION: Successful dual chamber rate responsive permanent pacemaker under fluoroscopic guidance along with peripheral venogram and intracardiac electrogram His bundle recordings, all under fluoroscopic guidance secondary to complete heart block PLAN: Monitor the patient post-procedure. A 12-lead ECG, chest x-ray. She is not to lift the left elbow or left shoulder for 1 month. She cannot lift more than 10 pounds with the left arm for 2 weeks. She is to keep the dressing on and dry until his wound check in 10 days.
== END 2024-07-31 15:02 | disposition home health service (06) | DRG 243 ==
LOC: ED 11:51 → 1E 14:08 → SUATTDRO 14:08 → 1E 15:29 → 2E 07-30 06:09